=== PATIENT | female | born 1960 | race Caucasian/White ===

== ENCOUNTER 2017-04-08 09:03 | Emergency (ER) | payer MEDICAID ==
[2017-04-08 09:16] VITALS: BP 132/74
--- NOTE | 2017-04-08 09:56 | XRay Report ---
RIGHT KNEE RADIOGRAPHS INDICATION: Pain. COMPARISON: None similar at this institution. FINDINGS: AP, lateral and oblique right knee radiographs suggest moderate suprapatellar soft tissue swelling/possible effusion. Patellofemoral narrowing not excluded. Superior patellar pole and tibial spines degenerative spurring. Intact articulation. Approximately 1.2 cm sesamoid bone projects adjacent to the lateral femoral condyle on one of the views. CONCLUSION: Right knee degenerative changes with suprapatellar swelling suspected, as described. Thank you for the opportunity to participate in this patient's care.
[2017-04-08] MEDS ORDERED: TORADOL IM ONE (12:22)
--- NOTE | 2017-04-08 12:27 | Emergency Department Report ---
ED Lower Extremity HPI - General Chief Complaint: Extremity Injury, Lower Stated Complaint: RIGHT KNEE PAIN Time Seen by Provider: 04/08/17 12:09 Source: patient Mode of arrival: Ambulatory Limitations: No Limitations - History of Present Illness Initial Comments: this is a 56 y/o aaf with hx of DMII, HTN, Obesity, na Arthritis I woke up with knee pain front of knee, pt denies fall injury or trauma however this is a chronic conditions flaring 2-3 times per year, pain described as 5/10 aching exacerbated by prolonged standing walking and climbing steps pain is relieved by rest, pt remains ambulatory to baseline. MD Complaint: knee injury (acute on chronic knee pain ) Onset/Timin -: days(s) Injury: Knee: Right (aching ) Type of Injury: other (I woke up like this ) Place: home Severity: moderate Severity scale (0 -10): 5 Improves With: rest Worsens With: weight bearing, movement, palpation Context: other (none) Other Symptoms: loss of consciousness Associated Symptoms: swelling, ambulatory Treatments Prior to Arrival: other (none) - Related Data Previous Rx's Medication Instructions Recorded Last Taken Type Cyclobenzaprine [Flexeril] 10 mg PO TID PRN #30 tablet 04/08/17 Unknown Rx Naproxen [Naprosyn TAB] 500 mg PO BID PRN #60 tablet 04/08/17 Unknown Rx Allergies Allergy/AdvReac Type Severity Reaction Status Date / Time No Known Allergies Allergy Unverified 04/08/17 09:16 ED Review of Systems ROS: Stated complaint: RIGHT KNEE PAIN Other details as noted in HPI Constitutional: denies: chills, fever Eyes: denies: eye pain, eye discharge, vision change ENT: denies: ear pain, throat pain Respiratory: denies: cough, shortness of breath, wheezing Cardiovascular: denies: chest pain, palpitations Endocrine: no symptoms reported Gastrointestinal: denies: abdominal pain, nausea, diarrhea Genitourinary: denies: urgency, dysuria, discharge Musculoskeletal: joint swelling, arthralgia, myalgia. denies: back pain Skin: denies: rash, lesions Neurological: denies: headache, weakness, paresthesias Psychiatric: denies: anxiety, depression Hematological/Lymphatic: denies: easy bleeding, easy bruising ED Past Medical Hx - Past Medical History Previous Medical History?: Yes Hx Hypertension: Yes Hx Diabetes: Yes Hx Arthritis: Yes - Surgical History Past Surgical History?: Yes Additional Surgical History: HYSTERECTOMY - Social History Smoking Status: Never Smoker Substance Use Type: None - Medications Home Medications: Home Medications Medication Instructions Recorded Confirmed Last Taken Type Cyclobenzaprine [Flexeril] 10 mg PO TID PRN #30 tablet 04/08/17 Unknown Rx Naproxen [Naprosyn TAB] 500 mg PO BID PRN #60 tablet 04/08/17 Unknown Rx ED Physical Exam - General Limitations: No Limitations General appearance: alert, in no apparent distress - Head Head exam: Present: atraumatic, normocephalic - Eye Eye exam: Present: normal appearance - ENT ENT exam: Present: mucous membranes moist - Neck Neck exam: Present: normal inspection - Respiratory Respiratory exam: Present: normal lung sounds bilaterally. Absent: respiratory distress - Cardiovascular Cardiovascular Exam: Present: regular rate, normal rhythm. Absent: systolic murmur, diastolic murmur, rubs, gallop - GI/Abdominal GI/Abdominal exam: Present: soft, normal bowel sounds - Rectal Rectal exam: Present: deferred - Extremities Exam Extremities exam: Present: full ROM, tenderness (right anterior knee ), normal capillary refill, joint swelling (mild anterior knee swelling ). Absent: calf tenderness - Expanded Lower Extremity Exam Right Hip exam: Present: normal inspection, full ROM Upper Leg exam: Present: normal inspection, full ROM Knee exam: Present: tenderness, swelling, pain w/ pronation/supination (mild reproducible pain to rotation , mild prepatellar tenderness to deep palpation no palpable effusion full knee extension pt is ambulatory there is no weakness rom restricted by pain ), full knee extension. Absent: abrasion, laceration, ecchymosis, deformity, crepidus, dislocation, erythema, effusion, posterior draw sign, pain/laxity with valgus, pain/laxity with varus Lower Leg exam: Present: normal inspection, full ROM Ankle exam: Present: normal inspection, full ROM Foot/Toe exam: Present: normal inspection, full ROM Neuro vascular tendon exam: Present: no vascular compromise. Absent: pulse deficit, abnormal cap refill, motor deficit, sensory deficit, tendon deficit, extremity cold to touch, pallor, abnormal 2-point discrimination, decreased fine /light touch, foot drop, peroneal nerve deficit, significant pain with passive ROM of distal joint Gait: Positive: observed and limited by pain - Back Exam Back exam: Present: normal inspection, full ROM. Absent: tenderness, CVA tenderness (R), CVA tenderness (L), muscle spasm, paraspinal tenderness, vertebral tenderness, rash noted - Neurological Exam Neurological exam: Present: alert, oriented X3, CN II-XII intact, reflexes normal. Absent: motor sensory deficit - Expanded Neurological Exam Expanded Patient oriented to: Present: person, place, time Speech: Present: fluid speech Sensory exam: Upper Extremity Light Touch: Normal, Upper Extremity Pin Prick: Normal, Upper Extremity Temperature: Normal, UE 2 Point Discrimination: Normal, Lower Extremity Light Touch: Normal, Lower Extremity Pin Prick: Normal, Lower Extremity Temperature: Normal, LE 2 Point Discrimination: Normal Motor strength exam: RUE: 5, LUE: 5, RLE: 5, LLE: 5 DTR: bicep (R): 2+, bicep (L): 2+, tricep (R): 2+, tricep (L): 2+, knee (R): 2+ , knee (L): 2+, ankle (R): 2+, ankle (L): 2+ Best Eye Response ([place]): (4) open spontaneously Best Motor Response ([place]): (6) obeys commands Best Verbal Response ([place]): (5) oriented [place] Total: 15 - Psychiatric Psychiatric exam: Present: normal affect, normal mood - Skin Skin exam: Present: warm, dry, intact, normal color. Absent: rash ED Course Vital Signs 04/08/17 09:14 Temperature 97.8 F Pulse Rate 82 Respiratory 18 Rate Blood Pressure 132/74 O2 Sat by Pulse 100 Oximetry ED Lower Extremity MDM - Medical Decision Making this is a 56 y/o aaf with hx of DMII, HTN, Obesity, na Arthritis I woke up with knee pain front of knee, pt denies fall injury or trauma however this is a chronic conditions flaring 2-3 times per year, pain described as 5/10 aching exacerbated by prolonged standing walking and climbing steps pain is relieved by rest, pt remains ambulatory to baseline per patient, exam: right knee: no deformity no ecchymosis no erythema , no crepitus no stepoff ,mild reproducible pain to rotation , mild prepatellar tenderness to deep palpation no palpable effusion full knee extension pt is ambulatory there is no weakness rom restricted by pain. pain is improved with ketorlac im, knee xray: no fracture noted degenerative changes with suprapetellar swelling plan: nsaids , muscle relaxants, follow up with orthopedics Dr Mc upon appointment , david wrap right knee, naproxen, flexeril, pt verbalized agreement and understanding of discharge plan. Critical care attestation.: If time is entered above; I have spent that time in minutes in the direct care of this critically ill patient, excluding procedure time. ED Disposition Clinical Impression: Patellar tendinitis of right knee, Chronic pain of both knees Disposition: TO HOME OR SELFCARE Is pt being admited?: No Does the pt Need Aspirin: No Condition: Good Instructions: Arthralgia (ED), Knee Exercises (GEN) Prescriptions: Cyclobenzaprine [Flexeril] 10 mg PO TID PRN #30 tablet PRN Reason: Muscle Spasm Naproxen [Naprosyn TAB] 500 mg PO BID PRN #60 tablet PRN Reason: Pain Referrals: LANDY SHAW MD [Primary Care Provider] - 3-5 Days Forms: Work/School Release Form(ED) Time of Disposition: 12:42
[2017-04-08] MEDS ORDERED: TORADOL ONE (12:31)
== END 2017-04-08 12:54 | disposition home or self-care (01) ==
LOC: ED 09:03
DX: M76.51 Patellar tendinitis, right knee (principal); M25.561 Pain in right knee; M25.562 Pain in left knee; G89.29 Other chronic pain; I10 Essential (primary) hypertension; E11.9 Type 2 diabetes mellitus without complications
CPT/HCPCS: 73562; 96372; 99283; J1885

== ENCOUNTER 2021-11-12 08:42 | Inpatient (IN) | payer MEDICAID ==
[2021-11-12] MEDS ORDERED: ONDANSETRON 4 MG/2 ML INJ IV ONE (13:50)
[2021-11-12] MEDS ORDERED: ASPIRIN 81 MG TAB CHEW PO ONE (13:50)
[2021-11-12] MEDS ORDERED: NITROGLYCERIN 0.4 MG TAB SUBL SL ONE (13:50)
--- NOTE | 2021-11-12 13:57 | Emergency Department Report ---
ED General Adult HPI - General Chief complaint: Chest Pain Stated complaint: CHEST PAIN/NAUSEA Time Seen by Provider: 11/12/21 13:42 Source: patient Mode of arrival: Ambulatory Limitations: No Limitations - History of Present Illness Initial comments: Patient presents with complaints of chest pain x 2 days, left sided, pressure, non-radiating, 8/10, not worsened or relieved by anything, associated with SOB. Denies palpitations, diaphoresis, leg swelling, pain in her calves, recent travel, immobilization, surgery, hospitalization, sex HRT use. - Related Data Previous Rx's Medication Instructions Recorded Last Taken Type Cyclobenzaprine [Flexeril] 10 mg PO TID PRN #30 tablet 04/08/17 Unknown Rx Naproxen [Naprosyn TAB] 500 mg PO BID PRN #60 tablet 04/08/17 Unknown Rx Allergies Allergy/AdvReac Type Severity Reaction Status Date / Time tramadol Allergy Hives Verified 11/12/21 14:30 ED Review of Systems ROS: Stated complaint: CHEST PAIN/NAUSEA Other details as noted in HPI Comment: All other systems reviewed and negative Constitutional: denies: chills, fever Gastrointestinal: nausea, vomiting (non bloody, non bilious), diarrhea ED Past Medical Hx - Past Medical History Hx Hypertension: Yes Hx Diabetes: Yes Hx Arthritis: Yes - Surgical History Additional Surgical History: HYSTERECTOMY - Social History Smoking Status: Never Smoker Substance Use Type: None - Medications Home Medications: Home Medications Medication Instructions Recorded Confirmed Last Taken Type Cyclobenzaprine [Flexeril] 10 mg PO TID PRN #30 tablet 04/08/17 Unknown Rx Naproxen [Naprosyn TAB] 500 mg PO BID PRN #60 tablet 04/08/17 Unknown Rx ED Physical Exam - General Limitations: No Limitations General appearance: alert, in no apparent distress - Head Head exam: Present: atraumatic, normocephalic - Eye Eye exam: Present: PERRL, EOMI - ENT ENT exam: Present: mucous membranes moist, other (airway patent) - Neck Neck exam: Present: other (supple; no JVD) - Respiratory Respiratory exam: Present: other (good air entry, nml I:E, CTAB, no use of PRANAV) - Cardiovascular Cardiovascular Exam: Present: regular rate. Absent: rubs, gallop - GI/Abdominal GI/Abdominal exam: Present: soft, normal bowel sounds, other (tender to palpation in epigastric region, RUQ, LUQ) - Extremities Exam Extremities exam: Present: other (no lower extremity edema; non tender calves; neg Dov's sign bilaterally) - Back Exam Back exam: Present: full ROM, CVA tenderness (R), CVA tenderness (L) - Neurological Exam Neurological exam: Present: alert, oriented X3, CN II-XII intact. Absent: motor sensory deficit - Skin Skin exam: Present: warm, intact ED Course Vital Signs 11/12/21 11/12/21 11/12/21 08:48 13:53 14:00 Temperature 99.8 F H Pulse Rate 118 H 96 H 97 H Respiratory 19 38 H 37 H Rate Blood Pressure 140/68 135/65 O2 Sat by Pulse 95 96 95 Oximetry 11/12/21 11/12/21 11/12/21 14:16 14:19 14:25 Temperature Pulse Rate 95 H 96 H Respiratory 31 H Rate Blood Pressure 135/65 135/65 O2 Sat by Pulse 96 99 Oximetry 11/12/21 11/12/21 11/12/21 14:30 14:46 15:00 Temperature Pulse Rate 100 H 97 H 94 H Respiratory 29 H 21 21 Rate Blood Pressure 135/65 135/65 135/65 O2 Sat by Pulse 94 97 96 Oximetry 11/12/21 11/12/21 11/12/21 15:16 15:30 15:46 Temperature Pulse Rate 99 H 103 H 95 H Respiratory 18 22 29 H Rate Blood Pressure 135/65 135/65 148/52 O2 Sat by Pulse 94 100 95 Oximetry 11/12/21 11/12/21 11/12/21 16:00 16:16 16:30 Temperature Pulse Rate 97 H 99 H 99 H Respiratory 33 H 24 26 H Rate Blood Pressure 143/62 143/62 143/62 O2 Sat by Pulse 95 100 95 Oximetry 11/12/21 11/12/21 11/12/21 16:46 17:00 17:16 Temperature Pulse Rate 100 H 99 H 99 H Respiratory 17 13 24 Rate Blood Pressure 143/62 166/92 166/92 O2 Sat by Pulse 97 96 96 Oximetry 11/12/21 11/12/21 11/12/21 17:48 18:00 18:16 Temperature Pulse Rate 99 H 98 H 98 H Respiratory 22 20 29 H Rate Blood Pressure O2 Sat by Pulse 96 93 95 Oximetry 11/12/21 18:30 Temperature Pulse Rate Respiratory Rate Blood Pressure O2 Sat by Pulse 93 Oximetry ED Medical Decision Making - Lab Data Result diagrams: 11/12/21 14:36 11/12/21 17:21 Laboratory Tests 11/12/21 11/12/21 11/12/21 14:36 14:36 15:28 WBC 20.0 H RBC 4.71 Hgb 14.3 Hct 42.9 MCV 91 MCH 30 MCHC 33 RDW 14.1 Plt Count 156 Lymph % (Auto) 4.4 L [place] % (Auto) 5.5 Eos % (Auto) 0.0 Baso % (Auto) 0.4 Lymph # (Auto) 0.9 L [place] # (Auto) 1.1 H Eos # (Auto) 0.0 Baso # (Auto) 0.1 Seg Neutrophils % 89.7 H Seg Neutrophils # 17.9 H D-Dimer 1509.65 H Sodium Potassium Chloride Carbon Dioxide Anion Gap BUN Creatinine Estimated GFR BUN/Creatinine Ratio Glucose Lactic Acid Calcium Total Bilirubin AST ALT Alkaline Phosphatase Total Creatine Kinase Troponin T Total Protein Albumin Albumin/Globulin Ratio Triglycerides Cholesterol LDL Cholesterol Direct HDL Cholesterol Cholesterol/HDL Ratio Lipase Urine Color Urine Turbidity Urine pH Ur Specific [place] Urine Protein Urine Glucose (UA) Urine Ketones Urine Blood Urine Nitrite Urine Bilirubin Urine Urobilinogen Ur Leukocyte Esterase Urine WBC (Auto) Urine RBC (Auto) U Epithel Cells (Auto) Urine Bacteria (Auto) Ur Renal Epithelial Cell Urine Mucus Urine Opiates Screen Negative Urine Methadone Screen Negative Ur Barbiturates Screen Negative Ur Phencyclidine Scrn Negative Ur Amphetamines Screen Negative U Benzodiazepines Scrn Negative Urine Cocaine Screen Negative U Marijuana (THC) Screen Negative Drugs of Abuse Note Disclamer 11/12/21 11/12/21 11/12/21 15:32 16:52 17:21 WBC RBC Hgb Hct MCV MCH MCHC RDW Plt Count Lymph % (Auto) [place] % (Auto) Eos % (Auto) Baso % (Auto) Lymph # (Auto) [place] # (Auto) Eos # (Auto) Baso # (Auto) Seg Neutrophils % Seg Neutrophils # D-Dimer Sodium 131 L Potassium 4.7 Chloride 95.0 L Carbon Dioxide 20 L Anion Gap 21 BUN 23 H Creatinine 1.0 Estimated GFR 56 BUN/Creatinine Ratio 23 Glucose 242 H Lactic Acid 2.20 H* Calcium 8.7 Total Bilirubin 0.70 AST 24 ALT 17 Alkaline Phosphatase 99 Total Creatine Kinase 84 Troponin T 0.033 H Total Protein 6.6 Albumin 3.9 Albumin/Globulin Ratio 1.4 Triglycerides 256 H Cholesterol 142 LDL Cholesterol Direct 64 HDL Cholesterol 24 L Cholesterol/HDL Ratio 5.91 Lipase 16 Urine Color Red Urine Turbidity Cloudy Urine pH 6.0 Ur Specific [place] 1.016 Urine Protein >500 Urine Glucose (UA) Neg Urine Ketones Neg Urine Blood Lg Urine Nitrite Neg Urine Bilirubin Neg Urine Urobilinogen 4.0 Ur Leukocyte Esterase Lg Urine WBC (Auto) > 182.0 H Urine RBC (Auto) > 182.0 U Epithel Cells (Auto) 32.0 H Urine Bacteria (Auto) 4+ Ur Renal Epithelial Cell 1 Urine Mucus 3+ Urine Opiates Screen Urine Methadone Screen Ur Barbiturates Screen Ur Phencyclidine Scrn Ur Amphetamines Screen U Benzodiazepines Scrn Urine Cocaine Screen U Marijuana (THC) Screen Drugs of Abuse Note EKG: HR 108, SR, nml NM, narrow QRS, prolonged QTc to 531, TWI/F in I, aVL, mild J point depressions in V4 and V5 CXR: no acute cardiopulmonary process CTA chest: no clear cut PE; poor bolus timing; TAA 4.[address] abd/pelvis: signs of pyelonephritis; no ureterla stones; cholelithiasis without signs of cholecystitis - Medical Decision Making diff dz: - CP: need to r/o ACS. PE less likely. Pneumonia, pneumothorax ruled out. - abd tenderness: likely 2/2 pyelonephritis with sepsis. Calculous cholecysititis less likely. Received aspirin 324 mg PO x 1, nitroglycerin 0.4 mg SL x 1. CP resolved. Also received zosyn 4.5 g IV x 1, NS 1L bolus x 1, zofran 4 mg IV x 1. Critical care attestation.: If time is entered above; I have spent that time in minutes in the direct care of this critically ill patient, excluding procedure time. ED Disposition Clinical Impression: Chest pain, Pyelonephritis, Sepsis Disposition: ADMITTED INPATIENT Is pt being admited?: Yes Does the pt Need Aspirin: No Condition: Stable Time of Disposition: 21:30 (Patient admitted to Dr. Bain. Sign out was given by me to the admitting physician)
--- NOTE | 2021-11-12 14:38 | XRay Report ---
CHEST 1 VIEW INDICATION: Chest pain. COMPARISON: None FINDINGS: SUPPORT DEVICES: None. HEART: Within normal limits. LUNGS/PLEURA: No acute air space or interstitial disease. ADDITIONAL FINDINGS: None. IMPRESSION: 1. No acute findings. Signer Name: Stoney Neff MD Signed: 11/12/2021 2:33 PM Workstation Name: [id number]
[2021-11-12 15:00] LABS: Basophils # (Auto) 0.1 K/mm3 (0.0-0.1); Basophils % (Auto) 0.4 % (0.0-1.8); Hematocrit 42.9 % (30.3-42.9); Hemoglobin 14.3 gm/dl (10.1-14.3); Lymphocytes # (Auto) 0.9 K/mm3 (1.2-5.4); Lymphocytes % (Auto) 4.4 % (13.4-35.0); Mean Corpuscular HGB Conc 33 % (30-34); Mean Corpuscular Volume 91 fl (79-97); Monocytes # (Auto) 1.1 K/mm3 (0.0-0.8); Monocytes % (Auto) 5.5 % (0.0-7.3); Red Blood Count 4.71 M/mm3 (3.65-5.03); Red Cell Distribution Width 14.1 % (13.2-15.2)
[2021-11-12 15:03] LABS: Platelet Count 156 K/mm3 (140-440)
[2021-11-12 15:53] LABS: Amphetamine Screen,Urine Negative; Benzodiazepines Screen,Urine Negative; Cannabinoid Screen,Urine Negative; Cocaine Screen,Urine Negative; Methadone Screen,Urine Negative; Opiate Screen,Urine Negative
[2021-11-12 15:55] LABS: Bacteria,Urine 4+ /HPF (Negative); Bilirubin,Urine NEG (Negative); Blood,Urine LG (Negative); Color,Urine Red (Yellow); Mucus,Urine 3+ /HPF; Renal Epithelial Cells,Urine 1 /LPF
[2021-11-12 16:11] LABS: Protein,Urine >500 mg/dL (Negative); RBC,Urine > 182.0 /HPF (0.0-6.0); WBC,Urine > 182.0 /HPF (0.0-6.0)
[2021-11-12] MEDS ORDERED: SODIUM CHLORIDE 0.9% 1000 ML 1,000 ML IV ONE (16:43)
[2021-11-12] MEDS ORDERED: PIPERACIL/TAZOBACTA 4.5/NS 100 4.5 GM/100 ML VIAL IV ONE (16:43)
[2021-11-12 18:08] LABS: Albumin 3.9 g/dL (3.9-5); Calcium 8.7 mg/dL (8.4-10.2)
--- NOTE | 2021-11-12 18:09 | Electrocardiograph Report ---
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
[2021-11-12 18:19] LABS: Chol/HDL Ratio 5.91 %
--- NOTE | 2021-11-12 19:38 | Cat Scan Report ---
CTA CHEST WITH IV CONTRAST INDICATION: Chest pain; elevated D-dimer. TECHNIQUE: Axial CT images were obtained through the chest after injection of 100 mL Omnipaque 300 IV contrast. 3 plane MIP reconstructions were produced. All CT scans at this location are performed using CT dose reduction for ALARA by means of automated exposure control. COMPARISON: None available. FINDINGS: PULMONARY ARTERIES: Difficult to evaluate given contrast bolus timing and respiratory motion.. AORTA AND ARTERIES: The ascending thoracic aorta is dilated measuring 4.9 cm in greatest diameter.. MEDIASTINUM: No mass, lymphadenopathy or other significant abnormality. The heart is normal in size w ithout a pericardial effusion. The trachea and main bronchi are patent and normal in caliber. LUNGS: No suspicious consolidation, nodule or mass. No pneumothorax or pleural effusion. ADDITIONAL FINDINGS: None. UPPER ABDOMEN: Hepatosplenomegaly. Cholelithiasis. Abnormal inflammation of the left kidney only part ially visualized. BONES: No significant osseous abnormality. IMPRESSION: Aneurysm of the ascending thoracic aorta measuring 4.9 cm in diameter. See above comments. Signer Name: Gera Vines MD Signed: 11/12/2021 7:34 PM Workstation Name: [id number]
--- NOTE | 2021-11-12 19:42 | Cat Scan Report ---
CT ABDOMEN AND PELVIS WITH IV CONTRAST INDICATION: abdominal pain. COMPARISON: None available. TECHNIQUE: Axial CT images were obtained through the abdomen and pelvis after 100 mL Omnipaque [address] scans at this location are performed using CT dose reduction for ALARA by means of automated e xposure control. FINDINGS -- ABDOMEN: Lung Bases: No acute abnormality. Liver: Normal. Gallbladder: Cholelithiasis. Bile Ducts: Normal. Pancreas: Normal. Spleen: Normal. Adrenals: Normal. Right Kidney and Proximal Ureter: Normal. Left Kidney and Proximal Ureter: Grossly abnormal in appearance with slight enlargement and prominent left perinephric stranding. There may be slight abnormal enhancement involving the cortex of the upp er and lower pole there is some increased enhancement involving the urothelium of the proximal left u reter/left renal collecting system. Stomach and Bowel: Normal. Lymph Nodes: No significant adenopathy. Aorta: No significant abnormality. IVC: Normal. Additional Findings: Small fat-containing periumbilical hernia.. FINDINGS -- PELVIS: Urinary Bladder and Distal Ureters: Normal. Reproductive Organs: Fat-containing dermoid arising from the right adnexa region measuring 2.4 cm in diameter.. Appendix: Normal. Bowel: Extensive colonic diverticulosis.. Free Fluid: None. Lymph Nodes: No significant adenopathy. Additional Findings: None. Skeletal System: No acute abnormality. IMPRESSION: 1. Grossly abnormal appearance of the left kidney including the urothelium of the proximal left urete r. These findings are suspicious for underlying pyelonephritis. 2. Cholelithiasis, colonic diverticulosis and other incidental findings as noted above. Signer Name: Gera Vines MD Signed: 11/12/2021 7:38 PM Workstation Name: [id number]
[2021-11-12] MEDS ORDERED: MORPHINE 2 MG/1 ML INJ IV PRN (21:51)
[2021-11-12] MEDS ORDERED: ACETAMINOPHEN 325 MG TAB PO PRN ×2 (21:51)
[2021-11-12] MEDS ORDERED: MAGNESIUM HYDROXIDE (MOM) ORAL LIQD UDC PO PRN (21:51)
[2021-11-12] MEDS ORDERED: ONDANSETRON 4 MG/2 ML INJ IV PRN (21:51)
[2021-11-12] MEDS ORDERED: traMADol 50 MG TAB PO PRN (21:51)
[2021-11-12] MEDS ORDERED: DEXTROSE 50% IN WATER (25GM) 50 ML SYRINGE IV PRN (21:51)
[2021-11-12] MEDS ORDERED: NITROGLYCERIN 0.4 MG TAB SUBL SL PRN (21:51)
[2021-11-12] MEDS ORDERED: MORPHINE 4 MG/1 ML INJ IV PRN ×2 (21:51)
--- NOTE | 2021-11-12 22:06 | History and Physical Report ---
History of Present Illness Date of examination: 11/12/21 Date of admission: 11/12/2021 Chief complaint: Chest pain History of present illness: 61-year-old female with known history of hypertension, diabetes mellitus and arthritis presenting to the emergency room today with a 2-day history of chest pain. Chest pain is said to be left-sided and felt like pressure. Pain is nonradiating. She has had some mild shortness of breath. No known relieving or exacerbating factor. Patient denies any headache or dizziness and denies any diaphoresis. Denies any fever or chills, denies any nausea vomiting no abdominal pain. Work-up in the emergency room today, labs are significant for leukocytosis of 20. D-dimer of 1509, hyponatremia 131, lactic acid of 3.2, troponin level of 0.033, urinalysis is significant for UTI. Chest x-ray shows no acute findings. CT angiogram of the chest shows aneurysm of the ascending thoracic aorta measuring 4.[address] of the abdomen and pelvis suspicious for underlying pyelonephritis, cholelithiasis and colonic diverticulosis. Past History Past Medical History: diabetes, hypertension Past Surgical History: hysterectomy Social history: no significant social history Family history: no significant family history Medications and Allergies Allergies Allergy/AdvReac Type Severity Reaction Status Date / Time tramadol Allergy Hives Verified 11/12/21 14:30 Home Medications Medication Instructions Recorded Confirmed Last Taken Type Cyclobenzaprine [Flexeril] 10 mg PO TID PRN #30 tablet 04/08/17 Unknown Rx Naproxen [Naprosyn TAB] 500 mg PO BID PRN #60 tablet 04/08/17 Unknown Rx Review of Systems Constitutional: no fever, no chills Ears, nose, mouth and throat: no nasal congestion, no sore throat Cardiovascular: chest pain, no orthopnea, no palpitations Respiratory: no cough, no shortness of breath Gastrointestinal: abdominal pain, nausea, vomiting, diarrhea Genitourinary Female: no pelvic pain, no flank pain, no menorrhagia, no dysuria, no hematuria Musculoskeletal: no neck pain, no low back pain Integumentary: no rash, no pruritis Neurological: no headaches, no confusion Psychiatric: no anxiety, no depression Endocrine: no polyphagia, no polydipsia, no polyuria, no nocturia Exam - Constitutional Vitals: Temp Pulse Resp BP Pulse Ox 99.8 F H 98 H 29 H 166/92 93 11/12/21 08:48 11/12/21 18:16 11/12/21 18:16 11/12/21 17:16 11/12/21 18:30 General appearance: Present: no acute distress, well-nourished, obese - EENT Eyes: Present: PERRL, EOM intact. Absent: scleral icterus ENT: hearing intact, clear oral mucosa, dentition normal - Neck Neck: Present: supple, normal ROM - Respiratory Respiratory effort: normal Respiratory: bilateral: CTA - Cardiovascular Rhythm: regular Heart Sounds: Present: S1 & S2. Absent: gallop, systolic murmur, diastolic murmur, rub, click - Extremities Extremities: no ischemia, pulses intact, pulses symmetrical, No edema, normal temperature, normal color, Full ROM Peripheral Pulses: within normal limits - Abdominal General gastrointestinal: Present: soft, tender (Mild epigastric tenderness, no rebound tenderness and no guarding.), non-distended, normal bowel sounds. Absent: mass - Integumentary Integumentary: Present: clear, warm, dry, normal turgor. Absent: rash - Musculoskeletal Musculoskeletal: strength equal bilaterally - Psychiatric Psychiatric: appropriate mood/affect, intact judgment & insight, memory intact, cooperative - Neurologic Neurologic: CNII-XII intact, no focal deficits ([id number] offlineDiscussed), moves all extremities HEART Score - HEART Score Troponin: Troponin T 0.033 ng/mL (0.00-0.029) H 11/12/21 17:21 Results - Labs CBC & Chem 7: 11/13/21 04:28 11/13/21 04:28 Labs: Abnormal lab results 11/12/21 11/12/21 11/12/21 Range/Units 14:36 14:36 15:32 WBC 20.0 H (4.5-11.0) K/mm3 Lymph % (Auto) 4.4 L (13.4-35.0) % Lymph # (Auto) 0.9 L (1.2-5.4) K/mm3 [place] # (Auto) 1.1 H (0.0-0.8) K/mm3 Seg Neutrophils % 89.7 H (40.0-70.0) % Seg Neutrophils # 17.9 H (1.8-7.7) K/mm3 D-Dimer 1509.65 H (0-234) ng/mlDDU Sodium (137-145) mmol/L Chloride (98-107) mmol/L Carbon Dioxide (22-30) mmol/L BUN (7-17) mg/dL Glucose (65-100) mg/dL Lactic Acid (0.7-2.0) mmol/L Troponin T (0.00-0.029) ng/mL Triglycerides (2-149) mg/dL HDL Cholesterol (40-59) mg/dL Urine WBC (Auto) > 182.0 H (0.0-6.0) /HPF U Epithel Cells (Auto) 32.0 H (0-13.0) /HPF 11/12/21 11/12/21 Range/Units 16:52 17:21 WBC (4.5-11.0) K/mm3 Lymph % (Auto) (13.4-35.0) % Lymph # (Auto) (1.2-5.4) K/mm3 [place] # (Auto) (0.0-0.8) K/mm3 Seg Neutrophils % (40.0-70.0) % Seg Neutrophils # (1.8-7.7) K/mm3 D-Dimer (0-234) ng/mlDDU Sodium 131 L (137-145) mmol/L Chloride 95.0 L (98-107) mmol/L Carbon Dioxide 20 L (22-30) mmol/L BUN 23 H (7-17) mg/dL Glucose 242 H (65-100) mg/dL Lactic Acid 2.20 H* (0.7-2.0) mmol/L Troponin T 0.033 H (0.00-0.029) ng/mL Triglycerides 256 H (2-149) mg/dL HDL Cholesterol 24 L (40-59) mg/dL Urine WBC (Auto) (0.0-6.0) /HPF U Epithel Cells (Auto) (0-13.0) /HPF Assessment and Plan - Patient Problems (1) Chest pain Current Visit: Yes Status: Acute Plan to address problem: Patient admitted and placed on telemetry. Check serial cardiac enzymes. Patient commenced on daily aspirin, sublingual nitroglycerin and IV morphine as needed for chest pain. Consult cardiology for evaluation and further recommendations. (2) Pyelonephritis Current Visit: Yes Status: Acute Plan to address problem: Patient placed on empiric IV antibiotics. (3) Sepsis Current Visit: Yes Status: Acute Plan to address problem: Possibly secondary to the pyelonephritis. Continue on IV fluid. IV antibiotics. (4) Diabetes mellitus Current Visit: Yes Status: Acute Plan to address problem: Patient placed on sliding scale insulin. Will monitor Accu-Cheks closely. (5) Hypertension Current Visit: Yes Status: Acute Plan to address problem: We will resume routine home medications and monitor vital signs closely. (6) DVT prophylaxis Current Visit: Yes Status: Acute Plan to address problem: Patient placed on subcutaneous heparin. (7) Full code status Current Visit: Yes Status: Acute Plan to address problem: Patient is full code.
[2021-11-12] MEDS ORDERED: cefTRIAXone/NS 1 GM/50 ML 1 GM/50 ML BAG IV SCH (23:00)
[2021-11-13] MEDS: SODIUM CHLORIDE 0.9% 1000 ML 1,000 ML IV SCH (02:16)
[2021-11-13] MEDS: HEPARIN 5,000 UNIT/1 ML VIAL SUB-Q SCH ×3 (05:40→22:03)
[2021-11-13 05:42] LABS: Mean Corpuscular HGB Conc 33 % (30-34); Mean Corpuscular Volume 90 fl (79-97); Platelet Count 131 K/mm3 (140-440); Red Blood Count 4.32 M/mm3 (3.65-5.03); Red Cell Distribution Width 14.3 % (13.2-15.2)
[2021-11-13 06:36] LABS: Band Neutrophils # (Manual) 1.7 K/mm3; Basophils % (Manual) 0 % (0.0-1.8); Eosinophils % (Manual) 0 % (0.0-4.3); Platelet Estimate Consistent w Auto; RBC Morphology Normal; Total Cells Counted 100
[2021-11-13] MEDS ORDERED: REGADENOSON 0.4 MG/5 ML INJ IV ONE (08:28)
[2021-11-13] MEDS: INSULIN LISPRO 100 UNIT/ML SUB-Q SCH ×5 (11:29→22:04)
[2021-11-13] MEDS: ASPIRIN EC 325 MG TAB PO SCH (11:30)
--- NOTE | 2021-11-13 12:29 | Nuclear Medicine Report ---
APPROVED REPORT Exam: Nuclear Stress Test Indication: Chest pain BMI: 0 Stress Test Details HR Max Heart Rate (APMHR): 157 bpm Target HR (85% APMHR): 133 bpm BP ECG Resting ECG: Sinus Rhythm,wnl. Stress ECG: Sinus Rhythm ST Change: None Arrhythmia: None Recovery ECG: Sinus Rhythm Recovery ST Change: None Stress ECG Conclusion No EKG or arrhythmia with vasodilation. NM EXAM: Myocardial Perfusion REST/STRESS Imaging Protocol: Rest Tc-99m/Stress Tc-99m 1 day Resting Data Rest SPECT myocardial perfusion imaging was performed in supine position 45 minutes following the intravenous injection of 10 mCi of Tc-99m Myoview. Time of rest injection: 729 Date: 11/13/2021 Pharmacologic Stress Pharmacologic stress test was performed by injecting Regadenoson 0.4 mg IV push followed by the intravenous injection of 28 mCi of Tc-99m Myoview. Time of stress injection: 929 Date: 11/13/2021 Gated Stress SPECT was performed 30 minutes after stress injection. The images were gated to evaluate regional wall motion and calculate left ventricular ejection fraction. Study Data TID = 1.03. Perfusion Wall Motion Normal wall motion and thickening noted.Post vasodilation LVEF of 52% noted. Nuclear Conclusion ECG Findings: negative for ischemia Clinical Findings: negative for ischemia Nuclear Findings: negative for ischemia Exercise Capacity: not assessed Left Ventricular Function: normal Risk Study: low Normal study. No scintigraphic evidence for myocardial ischemia or scar. Conclusion No EKG or arrhythmia with vasodilation.
--- NOTE | 2021-11-13 12:50 | Consultation ---
History of Present Illness - Reason for Consult Consult date: 11/13/21 Chest pain, a sending aortic aneurysm - History of Present Illness Patient with a history of chest pain resulting in presentation to the hospital. Currently undergoing cardiac evaluation. On imaging including CTA of the chest as well as a CT of the abdomen and pelvis, the patient was noted to have dilation of the ascending aorta to 4.7 cm in diameter. No abdominal aortic aneurysm. Patient asymptomatic at time of examination Past History Past Medical History: diabetes, hypertension Past Surgical History: hysterectomy Social history: no significant social history Family history: no significant family history Medications and Allergies Allergies Allergy/AdvReac Type Severity Reaction Status Date / Time tramadol Allergy Hives Verified 11/12/21 14:30 Home Medications Medication Instructions Recorded Confirmed Last Taken Type Cyclobenzaprine [Flexeril] 10 mg PO TID PRN #30 tablet 04/08/17 Unknown Rx Active Meds: Active Medications Acetaminophen (Acetaminophen 325 Mg Tab) 650 mg PO Q4H PRN PRN Reason: Pain MILD(1-3)/Fever >100.5/MILLER Last Admin: 11/12/21 22:58 Dose: 650 mg Aspirin (Aspirin Ec 325 Mg Tab) 325 mg PO QDAY ZOHAIB Last Admin: 11/13/21 11:30 Dose: 325 mg Dextrose (Dextrose 50% In Water (25gm) 50 Ml Syringe) 50 ml IV Q30MIN PRN; Protocol PRN Reason: Hypoglycemia Heparin Sodium (Porcine) (Heparin 5,000 Unit/1 Ml Vial) 5,000 unit SUB-Q Q8HR ZOHAIB Last Admin: 11/13/21 05:40 Dose: 5,000 unit Sodium Chloride (Nacl 0.9% 1000 Ml) 1,000 mls @ 125 mls/hr IV DIRECT ZOHAIB Last Admin: 11/13/21 02:16 Dose: 125 mls/hr Ceftriaxone Sodium (Rocephin/Ns 1 Gm/50 Ml) 1 gm in 50 mls @ 100 mls/hr IV Q24H ZOHAIB; Protocol Last Admin: 11/13/21 02:15 Dose: 100 mls/hr Insulin Human Lispro (Insulin Lispro 100 Unit/Ml) 0 unit SUB-Q ACHS ZOHAIB; Protocol Last Admin: 11/13/21 11:30 Dose: Not Given Magnesium Hydroxide (Magnesium Hydroxide (Mom) Oral Liqd Udc) 30 ml PO Q4H PRN PRN Reason: Constipation Morphine Sulfate (Morphine 2 Mg/1 Ml Inj) 2 mg IV Q4H PRN PRN Reason: Pain, Moderate (4-6) Morphine Sulfate (Morphine 4 Mg/1 Ml Inj) 4 mg IV Q4H PRN PRN Reason: Pain , Severe (7-10) Morphine Sulfate (Morphine 4 Mg/1 Ml Inj) 2 mg IV Q5MIN PRN PRN Reason: Chest Pain unrelieved by NTG Nitroglycerin (Nitroglycerin 0.4 Mg Tab Subl) 0.4 mg SL Q5M PRN PRN Reason: Chest Pain Ondansetron HCl (Ondansetron 4 Mg/2 Ml Inj) 4 mg IV Q8H PRN PRN Reason: Nausea And Vomiting Last Admin: 11/13/21 10:10 Dose: 4 mg Sodium Chloride (Sodium Chloride 0.9% 10 Ml Flush Syringe) 10 ml IV BID ZOHAIB Last Admin: 11/13/21 11:31 Dose: 10 ml Sodium Chloride (Sodium Chloride 0.9% 10 Ml Flush Syringe) 10 ml IV PRN PRN PRN Reason: LINE FLUSH Review of Systems All systems: negative Exam - Constitutional Vitals: Temp Pulse Resp BP Pulse Ox 98.9 F 86 18 122/79 92 11/13/21 03:52 11/13/21 03:52 11/13/21 03:52 11/13/21 10:41 11/13/21 10:41 General appearance: Present: no acute distress - EENT Eyes: Present: EOM intact ENT: hearing intact - Neck Neck: Present: supple, normal ROM - Respiratory Respiratory effort: normal - Abdominal General gastrointestinal: Present: deferred Female genitourinary: Present: deferred - Rectal Rectal Exam: deferred - Psychiatric Psychiatric: appropriate mood/affect, cooperative Results - Labs CBC & Chem 7: 11/13/21 04:28 11/13/21 04:28 Labs: Abnormal lab results 11/12/21 11/12/21 11/12/21 Range/Units 14:36 14:36 15:32 WBC 20.0 H (4.5-11.0) K/mm3 Plt Count (140-440) K/mm3 Lymph % (Auto) 4.4 L (13.4-35.0) % Lymph # (Auto) 0.9 L (1.2-5.4) K/mm3 [place] # (Auto) 1.1 H (0.0-0.8) K/mm3 Seg Neutrophils % 89.7 H (40.0-70.0) % Seg Neuts % (Manual) (40.0-70.0) % Lymphocytes % (Manual) (13.4-35.0) % Seg Neutrophils # 17.9 H (1.8-7.7) K/mm3 Seg Neutrophils # Man (1.8-7.7) K/mm3 Lymphocytes # (Manual) (1.2-5.4) K/mm3 D-Dimer 1509.65 H (0-234) ng/mlDDU Sodium (137-145) mmol/L Chloride (98-107) mmol/L Carbon Dioxide (22-30) mmol/L BUN (7-17) mg/dL Glucose (65-100) mg/dL Lactic Acid (0.7-2.0) mmol/L Calcium (8.4-10.2) mg/dL Troponin T (0.00-0.029) ng/mL Triglycerides (2-149) mg/dL HDL Cholesterol (40-59) mg/dL Urine WBC (Auto) > 182.0 H (0.0-6.0) /HPF U Epithel Cells (Auto) 32.0 H (0-13.0) /HPF 11/12/21 11/12/21 11/13/21 Range/Units 16:52 17:21 04:28 WBC 16.6 H (4.5-11.0) K/mm3 Plt Count 131 L (140-440) K/mm3 Lymph % (Auto) (13.4-35.0) % Lymph # (Auto) (1.2-5.4) K/mm3 [place] # (Auto) (0.0-0.8) K/mm3 Seg Neutrophils % (40.0-70.0) % Seg Neuts % (Manual) 79.0 H (40.0-70.0) % Lymphocytes % (Manual) 6.0 L (13.4-35.0) % Seg Neutrophils # (1.8-7.7) K/mm3 Seg Neutrophils # Man 13.1 H (1.8-7.7) K/mm3 Lymphocytes # (Manual) 1.0 L (1.2-5.4) K/mm3 D-Dimer (0-234) ng/mlDDU Sodium 131 L (137-145) mmol/L Chloride 95.0 L (98-107) mmol/L Carbon Dioxide 20 L (22-30) mmol/L BUN 23 H (7-17) mg/dL Glucose 242 H (65-100) mg/dL Lactic Acid 2.20 H* (0.7-2.0) mmol/L Calcium (8.4-10.2) mg/dL Troponin T 0.033 H (0.00-0.029) ng/mL Triglycerides 256 H (2-149) mg/dL HDL Cholesterol 24 L (40-59) mg/dL Urine WBC (Auto) (0.0-6.0) /HPF U Epithel Cells (Auto) (0-13.0) /HPF 11/13/21 11/13/21 Range/Units 04:28 04:28 WBC (4.5-11.0) K/mm3 Plt Count (140-440) K/mm3 Lymph % (Auto) (13.4-35.0) % Lymph # (Auto) (1.2-5.4) K/mm3 [place] # (Auto) (0.0-0.8) K/mm3 Seg Neutrophils % (40.0-70.0) % Seg Neuts % (Manual) (40.0-70.0) % Lymphocytes % (Manual) (13.4-35.0) % Seg Neutrophils # (1.8-7.7) K/mm3 Seg Neutrophils # Man (1.8-7.7) K/mm3 Lymphocytes # (Manual) (1.2-5.4) K/mm3 D-Dimer (0-234) ng/mlDDU Sodium 135 L (137-145) mmol/L Chloride 96.8 L (98-107) mmol/L Carbon Dioxide (22-30) mmol/L BUN 23 H (7-17) mg/dL Glucose 274 H (65-100) mg/dL Lactic Acid (0.7-2.0) mmol/L Calcium 8.0 L (8.4-10.2) mg/dL Troponin T 0.036 H (0.00-0.029) ng/mL Triglycerides (2-149) mg/dL HDL Cholesterol (40-59) mg/dL Urine WBC (Auto) (0.0-6.0) /HPF U Epithel Cells (Auto) (0-13.0) /HPF - Imaging and Cardiology CT scan - abdomen: image reviewed CT scan - chest: image reviewed CT scan - pelvis: image reviewed Assessment and Plan Patient with dilation of her ascending aorta. At present, this is below the threshold for repair. Counseled patient on the need to maintain adequate blood pressure. Patient can be discharged from a vascular standpoint and follow-up in our office in 2 weeks. Patient will need outpatient surveillance at routine intervals.
--- NOTE | 2021-11-13 14:50 | Consultation ---
History of Present Illness Consult date: 11/13/21 Requesting physician: JANEE DAVALOS Consult reason: chest pain History of present illness: Patient is a 60-year-old female with a past medical history of hypertension, hyperlipidemia, and diabetes who presents to the ED with multiple complaints including body soreness, nausea, vomiting, epigastric pain, and some chest pain that have been going on for about 2 to 3 days. Patient states that her chest pain felt like sharp pain and located along her left side and in her epigastric region. She reported the pain was worse with deep breathing and palpation. Patient denies shortness of breath, lightheadedness, or diaphoresis. Of note in the ED patient was found to have leukocytosis, lactic acidosis, minimally elevated troponins, urinalysis significant for UTI, CT shows ascending aortic aneurysm and suspicious for pyelonephritis, cholelithiasis and colonic diverticulosis. Patient is previously unknown to our practice. Cardiology is consulted for chest pain Past History Past Medical History: diabetes, hypertension Past Surgical History: hysterectomy Social history: no significant social history Family history: no significant family history Medications and Allergies Allergies Allergy/AdvReac Type Severity Reaction Status Date / Time tramadol Allergy Hives Verified 11/12/21 14:30 Home Medications Medication Instructions Recorded Confirmed Last Taken Type Cyclobenzaprine [Flexeril] 10 mg PO TID PRN #30 tablet 04/08/17 11/09/21 Rx AtorvaSTATin [Lipitor] 40 mg PO QPM 11/13/21 11/13/21 11/09/21 History Claritin 10 mg PO PRN PRN 11/13/21 11/13/21 11/09/21 History Insulin Glargine [Lantus VIAL] 30 units SQ QAM 11/13/21 11/13/21 11/09/21 History Insulin Glargine [Lantus VIAL] 35 units SQ QPM 11/13/21 11/13/21 11/09/21 History Isosorbide Mononitrate [Isosorbide 60 mg PO DAILY 11/13/21 11/13/21 11/09/21 History Mononitrate ER] Meloxicam [Mobic] 15 mg PO Q3D 11/13/21 11/13/21 11/09/21 History Nitroglycerin [Nitrostat] 0.4 mg PO PRN 11/13/21 11/13/2111/12/22 History Oxycodone-Acetaminophen 10-325 10 - 325 mg PO PRN PRN 11/13/21 11/13/21 11/09/21 History Pregabalin [Lyrica] 100 mg PO BID 11/13/21 11/13/21 11/09/21 History lisinopriL [Lisinopril] 25 mg PO DAILY 11/13/21 11/13/21 11/09/21 History Active Meds: Active Medications Acetaminophen (Acetaminophen 325 Mg Tab) 650 mg PO Q4H PRN PRN Reason: Pain MILD(1-3)/Fever >100.5/MILLER Last Admin: 11/12/21 22:58 Dose: 650 mg Aspirin (Aspirin Ec 325 Mg Tab) 325 mg PO QDAY ZOHAIB Last Admin: 11/13/21 11:30 Dose: 325 mg Dextrose (Dextrose 50% In Water (25gm) 50 Ml Syringe) 50 ml IV Q30MIN PRN; Protocol PRN Reason: Hypoglycemia Heparin Sodium (Porcine) (Heparin 5,000 Unit/1 Ml Vial) 5,000 unit SUB-Q Q8HR ZOHAIB Last Admin: 11/13/21 05:40 Dose: 5,000 unit Sodium Chloride (Nacl 0.9% 1000 Ml) 1,000 mls @ 125 mls/hr IV DIRECT ZOHAIB Last Admin: 11/13/21 02:16 Dose: 125 mls/hr Ceftriaxone Sodium (Rocephin/Ns 1 Gm/50 Ml) 1 gm in 50 mls @ 100 mls/hr IV Q24H ZOHAIB; Protocol Last Admin: 11/13/21 02:15 Dose: 100 mls/hr Insulin Human Lispro (Insulin Lispro 100 Unit/Ml) 0 unit SUB-Q ACHS ZOHAIB; Protocol Last Admin: 11/13/21 12:54 Dose: 4 unit Magnesium Hydroxide (Magnesium Hydroxide (Mom) Oral Liqd Udc) 30 ml PO Q4H PRN PRN Reason: Constipation Morphine Sulfate (Morphine 2 Mg/1 Ml Inj) 2 mg IV Q4H PRN PRN Reason: Pain, Moderate (4-6) Morphine Sulfate (Morphine 4 Mg/1 Ml Inj) 4 mg IV Q4H PRN PRN Reason: Pain , Severe (7-10) Morphine Sulfate (Morphine 4 Mg/1 Ml Inj) 2 mg IV Q5MIN PRN PRN Reason: Chest Pain unrelieved by NTG Nitroglycerin (Nitroglycerin 0.4 Mg Tab Subl) 0.4 mg SL Q5M PRN PRN Reason: Chest Pain Ondansetron HCl (Ondansetron 4 Mg/2 Ml Inj) 4 mg IV Q8H PRN PRN Reason: Nausea And Vomiting Last Admin: 11/13/21 10:10 Dose: 4 mg Sodium Chloride (Sodium Chloride 0.9% 10 Ml Flush Syringe) 10 ml IV BID ZOHAIB Last Admin: 11/13/21 11:31 Dose: 10 ml Sodium Chloride (Sodium Chloride 0.9% 10 Ml Flush Syringe) 10 ml IV PRN PRN PRN Reason: LINE FLUSH Review of Systems Constitutional: no weight loss, no weight gain, no fever, no chills Ears, nose, mouth and throat: no sinus pressure, no sinus pain Cardiovascular: chest pain, no lightheadedness, no shortness of breath, no dyspnea on exertion Respiratory: no cough, no shortness of breath, no dyspnea on exertion Gastrointestinal: abdominal pain, nausea, vomiting Musculoskeletal: no neck stiffness, no neck pain Integumentary: no rash, no pruritis, no redness Neurological: no head injury, no transient paralysis, no paralysis Psychiatric: no anxiety, no memory loss Endocrine: no cold intolerance, no heat intolerance Hematologic/Lymphatic: no easy bruising, no easy bleeding Physical Examination Vital Signs Temp Pulse Resp BP Pulse Ox 99.8 F H 118 H 19 140/68 95 11/12/21 08:48 11/12/21 08:48 11/12/21 08:48 11/12/21 08:48 11/12/21 08:48 General appearance: no acute distress HEENT: Positive: PERRL Neck: Positive: trachea midline Cardiac: Positive: Reg Rate and Rhythm Lungs: Positive: Normal Breath Sounds Neuro: Positive: Grossly Intact Abdomen: Positive: Active Bowel Sounds Skin: Negative: Rash, Suspicious Lesions, Ulceration Extremities: Present: upper extr. pulses. Absent: edema Results 11/13/21 04:28 11/13/21 04:28 Cardiac Enzymes 11/12/21 Range/Units 17:21 AST 24 (5-40) units/L Lipids 11/12/21 Range/Units 17:21 Triglycerides 256 H (2-149) mg/dL Cholesterol 142 (50-199) mg/dL HDL Cholesterol 24 L (40-59) mg/dL Cholesterol/HDL Ratio 5.91 % CBC 11/12/21 11/13/21 Range/Units 14:36 04:28 WBC 20.0 H 16.6 H (4.5-11.0) K/mm3 RBC 4.71 4.32 (3.65-5.03) M/mm3 Hgb 14.3 13.0 (10.1-14.3) gm/dl Hct 42.9 39.0 (30.3-42.9) % Plt Count 156 131 L (140-440) K/mm3 Lymph # (Auto) 0.9 L (1.2-5.4) K/mm3 [place] # (Auto) 1.1 H (0.0-0.8) K/mm3 Eos # (Auto) 0.0 (0.0-0.4) K/mm3 Baso # (Auto) 0.1 (0.0-0.1) K/mm3 Comprehensive Metabolic Panel 11/12/21 11/13/21 Range/Units 17:21 04:28 Sodium 131 L 135 L (137-145) mmol/L Potassium 4.7 3.7 D (3.6-5.0) mmol/L Chloride 95.0 L 96.8 L (98-107) mmol/L Carbon Dioxide 20 L 24 (22-30) mmol/L BUN 23 H 23 H (7-17) mg/dL Creatinine 1.0 1.2 (0.6-1.2) mg/dL Glucose 242 H 274 H (65-100) mg/dL Calcium 8.7 8.0 L (8.4-10.2) mg/dL AST 24 (5-40) units/L ALT 17 (7-56) units/L Alkaline Phosphatase 99 (35-129) units/L Total Protein 6.6 (6.3-8.2) g/dL Albumin 3.9 (3.9-5) g/dL - Imaging and Cardiology Echo: pending EKG interpretations - Telemetry EKG Rhythm: Sinus Rhythm - EKG Sinus rhythms and dysrhythmias: sinus rhythm Assessment and Plan Patient is a 60-year-old female with a past medical history of hypertension, hyperlipidemia, and diabetes who presents to the ED with multiple complaints including body soreness, nausea, vomiting, epigastric pain, and some chest pain that have been going on for about 2 to 3 days. Sepsis UTI Pyelonephritis? cholelithiasis? Aortic aneurysm-vascular following Troponin leakage Diabetes Lexiscan MPI stress test 11/13/2021-no scintigraphic evidence of myocardial ischemia or scar. Normal study Plan: EKG shows sinus rhythm 86 with no acute ischemic changes. Troponin is minimally elevated. Patient currently chest pain-free patient previously had atypical chest pain. Patient had a normal stress test without signs of ischemia atypical chest pain likely associated with other conditions Echo pending Cardiac status otherwise stable. Will see as needed Patient seen in conjunction with Dr. Minor who agrees with this plan of care - Patient Problems (1) Chest pain Current Visit: Yes Status: Acute (2) Pyelonephritis Current Visit: Yes Status: Acute (3) Sepsis Current Visit: Yes Status: Acute (4) Diabetes mellitus Current Visit: Yes Status: Acute (5) Hypertension Current Visit: Yes Status: Acute
[2021-11-13] MEDS ORDERED: CYCLOBENZAPRINE 10 MG TAB PO PRN (15:57)
[2021-11-13] MEDS ORDERED: CLARITIN 10 MG PO PRN (15:57)
[2021-11-13] MEDS ORDERED: NITROGLYCERIN 0.4 MG TAB SUBL SL SCH (16:00)
--- NOTE | 2021-11-13 16:11 | Progress Note ---
Assessment and Plan -- Chest pain Current Visit: Yes Status: Acute Plan to address problem: Patient admitted and placed on telemetry. Check serial cardiac enzymes. Patient commenced on daily aspirin, sublingual nitroglycerin and IV morphine as needed for chest pain. Consult cardiology for evaluation and further recommendations. s/p stress test today -- Pyelonephritis with sepsis and bacteremia Current Visit: Yes Status: Acute Plan to address problem: Patient placed on empiric IV antibiotics. order repeat blood cx, consult ID -- Sepsis Current Visit: Yes Status: Acute Plan to address problem: Possibly secondary to the pyelonephritis. Continue on IV fluid. IV antibiotics. -- Diabetes mellitus with metabolic syndrom Current Visit: Yes Status: Acute Plan to address problem: Patient placed on sliding scale insulin. Will monitor Accu-Cheks closely. -- Hypertension Current Visit: Yes Status: Acute Plan to address problem: We will resume routine home medications and monitor vital signs closely. -- DVT prophylaxis Current Visit: Yes Status: Acute Plan to address problem: Patient placed on subcutaneous heparin. -- Full code status Current Visit: Yes Status: Acute Plan to address problem: Patient is full code. Subjective Date of service: 11/13/21 Interval history: patient seen and examined, daughter at the bedside c/o back pain s/p stress test today Objective - Constitutional Vitals: Vital Signs - 12hr 11/13/21 11/13/21 11/13/21 06:10 06:21 06:31 Blood Pressure 126/77 126/77 O2 Sat by Pulse 97 97 99 Oximetry 11/13/21 11/13/21 11/13/21 06:41 06:51 07:01 Blood Pressure 126/77 126/77 126/77 O2 Sat by Pulse 99 96 86 Oximetry 11/13/21 11/13/21 11/13/21 07:11 07:21 07:31 Blood Pressure 126/77 126/77 126/77 O2 Sat by Pulse 90 94 95 Oximetry 11/13/21 11/13/21 11/13/21 07:41 07:51 08:01 Blood Pressure 116/60 116/60 105/64 O2 Sat by Pulse 96 96 96 Oximetry 11/13/21 11/13/21 11/13/21 08:11 08:21 08:31 Blood Pressure 105/64 105/64 100/63 O2 Sat by Pulse 96 96 96 Oximetry 11/13/21 11/13/21 11/13/21 08:41 08:49 09:47 Blood Pressure 100/63 119/63 129/84 O2 Sat by Pulse 95 93 Oximetry 11/13/21 11/13/21 11/13/21 09:49 09:50 09:52 Blood Pressure 126/50 124/56 122/63 O2 Sat by Pulse Oximetry 11/13/21 11/13/21 11/13/21 09:53 09:54 10:01 Blood Pressure 106/76 130/66 129/86 O2 Sat by Pulse 94 Oximetry 11/13/21 11/13/21 11/13/21 10:11 10:20 10:31 Blood Pressure 129/86 129/86 122/79 O2 Sat by Pulse 96 95 92 Oximetry 11/13/21 10:41 Blood Pressure 122/79 O2 Sat by Pulse 92 Oximetry General appearance: Present: no acute distress, obese - EENT Eyes: PERRL, EOM intact ENT: hearing intact, clear oral mucosa Ears: bilateral: normal - Neck Neck: supple, normal ROM - Respiratory Respiratory effort: normal Respiratory: bilateral: CTA - Cardiovascular Rhythm: regular Heart Sounds: Present: S1 & S2. Absent: gallop, rub Extremities: pulses intact, No edema, normal color, Full ROM - Gastrointestinal General gastrointestinal: Present: soft, non-tender, non-distended, normal bowel sounds - Integumentary Integumentary: clear, warm, dry - Musculoskeletal Musculoskeletal: 1, strength equal bilaterally - Neurologic Neurologic: moves all extremities - Psychiatric Psychiatric: memory intact, appropriate mood/affect, intact judgment & insight - Labs CBC & Chem 7: 11/13/21 04:28 11/13/21 04:28 Labs: Abnormal lab results 11/12/21 11/12/21 11/12/21 Range/Units 15:32 16:52 17:21 WBC (4.5-11.0) K/mm3 Plt Count (140-440) K/mm3 Seg Neuts % (Manual) (40.0-70.0) % Lymphocytes % (Manual) (13.4-35.0) % Seg Neutrophils # Man (1.8-7.7) K/mm3 Lymphocytes # (Manual) (1.2-5.4) K/mm3 Sodium 131 L (137-145) mmol/L Chloride 95.0 L (98-107) mmol/L Carbon Dioxide 20 L (22-30) mmol/L BUN 23 H (7-17) mg/dL Glucose 242 H (65-100) mg/dL POC Glucose (70-105) mg/dL Lactic Acid 2.20 H* (0.7-2.0) mmol/L Calcium (8.4-10.2) mg/dL Troponin T 0.033 H (0.00-0.029) ng/mL Triglycerides 256 H (2-149) mg/dL HDL Cholesterol 24 L (40-59) mg/dL Urine WBC (Auto) > 182.0 H (0.0-6.0) /HPF U Epithel Cells (Auto) 32.0 H (0-13.0) /HPF 11/13/21 11/13/21 11/13/21 Range/Units 04:28 04: 04:28 WBC 16.6 H (4.5-11.0) K/mm3 Plt Count 131 L (140-440) K/mm3 Seg Neuts % (Manual) 79.0 H (40.0-70.0) % Lymphocytes % (Manual) 6.0 L (13.4-35.0) % Seg Neutrophils # Man 13.1 H (1.8-7.7) K/mm3 Lymphocytes # (Manual) 1.0 L (1.2-5.4) K/mm3 Sodium 135 L (137-145) mmol/L Chloride 96.8 L (98-107) mmol/L Carbon Dioxide (22-30) mmol/L BUN 23 H (7-17) mg/dL Glucose 274 H (65-100) mg/dL POC Glucose (70-105) mg/dL Lactic Acid (0.7-2.0) mmol/L Calcium 8.0 L (8.4-10.2) mg/dL Troponin T 0.036 H (0.00-0.029) ng/mL Triglycerides (2-149) mg/dL HDL Cholesterol (40-59) mg/dL Urine WBC (Auto) (0.0-6.0) /HPF U Epithel Cells (Auto) (0-13.0) /HPF 11/13/21 11/13/21 Range/Units 07:42 12:04 WBC (4.5-11.0) K/mm3 Plt Count (140-440) K/mm3 Seg Neuts % (Manual) (40.0-70.0) % Lymphocytes % (Manual) (13.4-35.0) % Seg Neutrophils # Man (1.8-7.7) K/mm3 Lymphocytes # (Manual) (1.2-5.4) K/mm3 Sodium (137-145) mmol/L Chloride (98-107) mmol/L Carbon Dioxide (22-30) mmol/L BUN (7-17) mg/dL Glucose (65-100) mg/dL POC Glucose 236 H 257 H (70-105) mg/dL Lactic Acid (0.7-2.0) mmol/L Calcium (8.4-10.2) mg/dL Troponin T (0.00-0.029) ng/mL Triglycerides (2-149) mg/dL HDL Cholesterol (40-59) mg/dL Urine WBC (Auto) (0.0-6.0) /HPF U Epithel Cells (Auto) (0-13.0) /HPF HEART Score - HEART Score Troponin: Troponin T 0.036 ng/mL (0.00-0.029) H 11/13/21 04:28
[2021-11-13] MEDS ORDERED: CETIRIZINE 10 MG TAB PO PRN (16:35)
[2021-11-13] MEDS ORDERED: oxyCODONE /ACETAMINOPHEN 5-325MG TAB PO PRN ×2 (16:55→16:57)
[2021-11-13] MEDS ORDERED: oxyCODONE 5 MG TAB PO PRN (16:58)
[2021-11-13] MEDS: oxyCODONE 5 MG TAB PO PRN (17:16)
[2021-11-13] MEDS: CEFEPIME/NS 2 GM/100 ML 2 GM/100 ML BAG IV SCH (17:16)
[2021-11-13] MEDS: oxyCODONE /ACETAMINOPHEN 5-325MG TAB PO PRN (17:16)
[2021-11-13] MEDS: INSULIN GLARGINE 100 UNITS/ML SUB-Q SCH (17:17)
[2021-11-13] MEDS ORDERED: cefTRIAXone/NS 2 GM/100 ML 2 GM/100 ML BAG IV SCH (22:00)
[2021-11-13] MEDS ORDERED: NON-FORMULARY EACH (Pregabalin [Lyrica] 100 MG Capsule) PO SCH (22:00)
[2021-11-13] MEDS: PREGABALIN 50 MG CAP PO SCH (22:03)
[2021-11-14] MEDS: SODIUM CHLORIDE 0.9% 1000 ML 1,000 ML IV SCH ×2 (00:16→14:03)
[2021-11-14] MEDS: CEFEPIME/NS 2 GM/100 ML 2 GM/100 ML BAG IV SCH ×2 (05:57→17:41)
[2021-11-14] MEDS: oxyCODONE 5 MG TAB PO PRN ×2 (05:58→14:02)
[2021-11-14] MEDS: oxyCODONE /ACETAMINOPHEN 5-325MG TAB PO PRN ×2 (05:58→14:02)
[2021-11-14] MEDS: HEPARIN 5,000 UNIT/1 ML VIAL SUB-Q SCH ×3 (05:59→21:40)
[2021-11-14] MEDS: INSULIN LISPRO 100 UNIT/ML SUB-Q SCH ×4 (09:00→21:40)
[2021-11-14] MEDS: PREGABALIN 50 MG CAP PO SCH ×2 (09:04→21:40)
[2021-11-14] MEDS: ASPIRIN EC 325 MG TAB PO SCH (09:05)
[2021-11-14] MEDS: INSULIN GLARGINE 100 UNITS/ML SUB-Q SCH ×2 (09:06→18:26)
[2021-11-14 11:30] LABS: BUN/Creatinine Ratio 21; Blood Urea Nitrogen 19 mg/dL (7-17); Calcium 8.5 mg/dL (8.4-10.2); Hemolysis Index 34
[2021-11-14 11:39] LABS: Hematocrit 36.2 % (30.3-42.9); Hemoglobin 12.4 gm/dl (10.1-14.3); Mean Corpuscular HGB Conc 34 % (30-34); Mean Corpuscular Volume 90 fl (79-97); Platelet Count 139 K/mm3 (140-440); Red Blood Count 4.01 M/mm3 (3.65-5.03); Red Cell Distribution Width 14.6 % (13.2-15.2)
--- NOTE | 2021-11-14 17:07 | Electrocardiograph Report ---
[facility] Test Date: 2021-11-13 Test Time: 07:22:13 Pat Name: BRYAN BOYER Department: Room: A458 1 Gender: F Extension Associate: GERRY : 1960 Requested By: JANEE DAVALOS Order Number: [id number] Reading MD: Tyree Garcia Measurements Intervals [place] Rate: 86 P: 58 MI: 131 QRS: 18 QRSD: 99 T: 57 QT: 406 QTc: 485 Interpretive Statements Sinus rhythm Compared to ECG 11/12/2021 08:54:29 Sinus rate has slowed Electronically Signed On 11-14-2021 17:07:36 EDT by Tyree Garcia
--- NOTE | 2021-11-14 17:11 | Electrocardiograph Report ---
[facility] Test Date: 2021-11-13 Test Time: 11:40:37 Pat Name: BRYAN BOYER Department: Room: A458 1 Gender: F [employer]arer: GERRY : 1960 Requested By: JANEE DAVALOS Order Number: [id number] Reading MD: Tyree Garcia Measurements Intervals [place] Rate: 93 P: 68 CT: 135 QRS: 16 QRSD: 89 T: 70 QT: 364 QTc: 455 Interpretive Statements Sinus rhythm Compared to ECG 11/13/2021 07:22:13 No significant changes Electronically Signed On 11-14-2021 17:11:02 EDT by Tyree Garcia
--- NOTE | 2021-11-14 19:35 | Progress Note ---
Assessment and Plan Assessment and plan: 61-year-old female with known history of hypertension, diabetes mellitus and arthritis presenting to the emergency room today with a 2-day history of chest pain. Chest pain is said to be left-sided and felt like pressure. Pain is nonradiating. She has had some mild shortness of breath. No known relieving or exacerbating factor. Patient denies any headache or dizziness and denies any diaphoresis. Denies any fever or chills, denies any nausea vomiting no abdominal pain. Work-up in the emergency room today, labs are significant for leukocytosis of 20. D-dimer of 1509, hyponatremia 131, lactic acid of 3.2, troponin level of 0.033, urinalysis is significant for UTI. Chest x-ray shows no acute findings. CT angiogram of the chest shows aneurysm of the ascending thoracic aorta measuring 4.[address] of the abdomen and pelvis suspicious for left acute pyelonephritis, cholelithiasis and colonic diverticulosis. -- Acute left pyelonephritis with sepsis and gram-negative bacteremia Current Visit: Yes Status: Acute Plan to address problem: Blood cultures growing gram-negative rods UA suggestive of UTI but urine cultures not from wound. Will obtain renal ultrasound for additional info Patient placed on empiric IV antibiotics. order repeat blood cx, consult ID -- Sepsis Current Visit: Yes Status: Acute Plan to address problem: Possibly secondary to the pyelonephritis. Continue on IV fluid. IV antibiotics as above Fever and leukocytosis improving, hemodynamically stable -- Atypical chest pain Current Visit: Yes Status: Acute Plan to address problem: Patient admitted and placed on telemetry. Borderline troponins, 0.03 and 0.03 Echo unremarkable, mild diastolic dysfunction, no wall motion abnormalities Cardiology consulted and stress test negative. Chest pain likely related to left acute pyelonephritis.. -- Diabetes mellitus with metabolic syndrom Current Visit: Yes Status: Acute Plan to address problem: Patient placed on sliding scale insulin. Will monitor Accu-Cheks closely. -- Hypertension Current Visit: Yes Status: Acute Plan to address problem: We will resume routine home medications and monitor vital signs closely. -- DVT prophylaxis Current Visit: Yes Status: Acute Plan to address problem: Patient placed on subcutaneous heparin. -- Full code status Current Visit: Yes Status: Acute Plan to address problem: Patient is full code. Discussed with the patient History Interval history: Patient was doing better. Fever and leukocytosis resolving. Denies abdominal pains nausea or chest pains now. Tolerating diet. Hospitalist Physical - Constitutional Vitals: Temp Pulse Resp BP Pulse Ox 98.8 F 81 18 134/78 92 11/14/21 16:51 11/14/21 16:51 11/14/21 16:51 11/14/21 16:51 11/14/21 16:51 General appearance: Present: no acute distress, obese - EENT Eyes: Present: PERRL, EOM intact ENT: clear oral mucosa - Neck Neck: Present: supple - Respiratory Respiratory effort: normal Respiratory: bilateral: CTA - Cardiovascular Rhythm: regular - Extremities Extremities: No edema - Abdominal General gastrointestinal: soft, non-tender, non-distended, normal bowel sounds - Integumentary Integumentary: Absent: rash - Psychiatric Psychiatric: appropriate mood/affect - Neurologic Neurologic: moves all extremities HEART Score - HEART Score Troponin: Troponin T 0.036 ng/mL (0.00-0.029) H 11/13/21 04:28 Results - Labs CBC & Chem 7: 11/14/21 10:46 11/14/21 10:46 Labs: Laboratory Last Values WBC 10.4 K/mm3 (4.5-11.0) 11/14/21 10:46 RBC 4.01 M/mm3 (3.65-5.03) 11/14/21 10:46 Hgb 12.4 gm/dl (10.1-14.3) 11/14/21 10:46 Hct 36.2 % (30.3-42.9) 11/14/21 10:46 MCV 90 fl (79-97) 11/14/21 10:46 MCH 31 pg (28-32) 11/14/21 10:46 MCHC 34 % (30-34) 11/14/21 10:46 RDW 14.6 % (13.2-15.2) 11/14/21 10:46 Plt Count 139 K/mm3 (140-440) L 11/14/21 10:46 Lymph % (Auto) 4.4 % (13.4-35.0) L 11/12/21 14:36 [place] % (Auto) 5.5 % (0.0-7.3) 11/12/21 14:36 Eos % (Auto) 0.0 % (0.0-4.3) 11/12/21 14:36 Baso % (Auto) 0.4 % (0.0-1.8) 11/12/21 14:36 Lymph # (Auto) 0.9 K/mm3 (1.2-5.4) L 11/12/21 14:36 [place] # (Auto) 1.1 K/mm3 (0.0-0.8) H 11/12/21 14:36 Eos # (Auto) 0.0 K/mm3 (0.0-0.4) 11/12/21 14:36 Baso # (Auto) 0.1 K/mm3 (0.0-0.1) 11/12/21 14:36 Add Manual Diff Complete 11/13/21 04:28 Total Counted 100 11/13/21 04:28 Seg Neutrophils % 89.7 % (40.0-70.0) H 11/12/21 14:36 Seg Neuts % (Manual) 79.0 % (40.0-70.0) H 11/13/21 04:28 Band Neutrophils % 10.0 % 11/13/21 04:28 Lymphocytes % (Manual) 6.0 % (13.4-35.0) L 11/13/21 04:28 Reactive Lymphs % (Man) 0 % 11/13/21 04:28 Monocytes % (Manual) 2.0 % (0.0-7.3) 11/13/21 04:28 Eosinophils % (Manual) 0 % (0.0-4.3) 11/13/21 04:28 Basophils % (Manual) 0 % (0.0-1.8) 11/13/21 04:28 Metamyelocytes % 3.0 % 11/13/21 04:28 Myelocytes % 0 % 11/13/21 04:28 Promyelocytes % 0 % 11/13/21 04:28 Blast Cells % 0 % 11/13/21 04:28 Nucleated RBC % Not Reportable 11/13/21 04:28 Seg Neutrophils # 17.9 K/mm3 (1.8-7.7) H 11/12/21 14:36 Seg Neutrophils # Man 13.1 K/mm3 (1.8-7.7) H 11/13/21 04:28 Band Neutrophils # 1.7 K/mm3 11/13/21 04:28 Lymphocytes # (Manual) 1.0 K/mm3 (1.2-5.4) L 11/13/21 04:28 Abs React Lymphs (Man) 0.0 K/mm3 11/13/21 04:28 Monocytes # (Manual) 0.3 K/mm3 (0.0-0.8) 11/13/21 04:28 Eosinophils # (Manual) 0.0 K/mm3 (0.0-0.4) 11/13/21 04:28 Basophils # (Manual) 0.0 K/mm3 (0.0-0.1) 11/13/21 04:28 Metamyelocytes # 0.5 K/mm3 11/13/21 04:28 Myelocytes # 0.0 K/mm3 11/13/21 04:28 Promyelocytes # 0.0 K/mm3 11/13/21 04:28 Blast Cells # 0.0 K/mm3 11/13/21 04:28 WBC Morphology Not Reportable 11/13/21 04:28 Hypersegmented Neuts Not Reportable 11/13/21 04:28 Hyposegmented Neuts Not Reportable 11/13/21 04:28 Hypogranular Neuts Not Reportable 11/13/21 04:28 Smudge Cells Not Reportable 11/13/21 04:28 Toxic Granulation Not Reportable 11/13/21 04:28 Toxic Vacuolation Not Reportable 11/13/21 04:28 Dohle Bodies Not Reportable 11/13/21 04:28 Pelger-Huet Anomaly Not Reportable 11/13/21 04:28 Andi Rods Not Reportable 11/13/21 04:28 Platelet Estimate Consistent w auto 11/13/21 04:28 Clumped Platelets Not Reportable 11/13/21 04:28 Plt Clumps, EDTA Not Reportable 11/13/21 04:28 Large Platelets Not Reportable 11/13/21 04:28 Giant Platelets Not Reportable 11/13/21 04:28 Platelet Satelliting Not Reportable 11/13/21 04:28 Plt Morphology Comment Not Reportable 11/13/21 04:28 RBC Morphology Normal 11/13/21 04:28 Dimorphic RBCs Not Reportable 11/13/21 04:28 Polychromasia Not Reportable 11/13/21 04:28 Hypochromasia Not Reportable 11/13/21 04:28 Poikilocytosis Not Reportable 11/13/21 04:28 Anisocytosis Not Reportable 11/13/21 04:28 Microcytosis Not Reportable 11/13/21 04:28 Macrocytosis Not Reportable 11/13/21 04:28 Spherocytes Not Reportable 11/13/21 04:28 Pappenheimer Bodies Not Reportable 11/13/21 04:28 Sickle Cells Not Reportable 11/13/21 04:28 Target Cells Not Reportable 11/13/21 04:28 Tear Drop Cells Not Reportable 11/13/21 04:28 Ovalocytes Not Reportable 11/13/21 04:28 Helmet Cells Not Reportable 11/13/21 04:28 Cox-Langford Bodies Not Reportable 11/13/21 04:28 [place] Rings Not Reportable 11/13/21 04:28 Sofie Cells Not Reportable 11/13/21 04:28 Bite Cells Not Reportable 11/13/21 04:28 Crenated Cell Not Reportable 11/13/21 04:28 Elliptocytes Not Reportable 11/13/21 04:28 Acanthocytes (Spur) Not Reportable 11/13/21 04:28 Rouleaux Not Reportable 11/13/21 04:28 Hemoglobin C Crystals Not Reportable 11/13/21 04:28 Schistocytes Not Reportable 11/13/21 04:28 Malaria parasites Not Reportable 11/13/21 04:28 Mario Bodies Not Reportable 11/13/21 04:28 Hem Pathologist Commnt No 11/13/21 04:28 D-Dimer 1509.65 ng/mlDDU (0-234) H 11/12/21 14:36 Sodium 131 mmol/L (137-145) L 11/14/21 10:46 Potassium 4.3 mmol/L (3.6-5.0) 11/14/21 10:46 Chloride 96.6 mmol/L (98-107) L 11/14/21 10:46 Carbon Dioxide 26 mmol/L (22-30) 11/14/21 10:46 Anion Gap 13 mmol/L 11/14/21 10:46 BUN 19 mg/dL (7-17) H 11/14/21 10:46 Creatinine 0.9 mg/dL (0.6-1.2) 11/14/21 10:46 Estimated GFR > 60 ml/min 11/14/21 10:46 BUN/Creatinine Ratio 21 % 11/14/21 10:46 Glucose 221 mg/dL (65-100) H 11/14/21 10:46 POC Glucose 214 mg/dL (70-105) H 11/14/21 11:34 Lactic Acid 1.90 mmol/L (0.7-2.0) 11/13/21 04:28 Calcium 8.5 mg/dL (8.4-10.2) 11/14/21 10:46 Total Bilirubin 0.70 mg/dL (0.1-1.2) 11/12/21 17:21 AST 24 units/L (5-40) 11/12/21 17:21 ALT 17 units/L (7-56) 11/12/21 17:21 Alkaline Phosphatase 99 units/L (35-129) 11/12/21 17:21 Total Creatine Kinase 84 units/L (30-135) 11/12/21 17:21 Troponin T 0.036 ng/mL (0.00-0.029) H 11/13/21 04:28 Total Protein 6.6 g/dL (6.3-8.2) 11/12/21 17:21 Albumin 3.9 g/dL (3.9-5) 11/12/21 17:21 Albumin/Globulin Ratio 1.4 % 11/12/21 17:21 Triglycerides 256 mg/dL (2-149) H 11/12/21 17:21 Cholesterol 142 mg/dL (50-199) 11/12/21 17:21 LDL Cholesterol Direct 64 mg/dL (50-130) 11/12/21 17:21 HDL Cholesterol 24 mg/dL (40-59) L 11/12/21 17:21 Cholesterol/HDL Ratio 5.91 % 11/12/21 17:21 Lipase 16 units/L (13-60) 11/12/21 17:21 Urine Color Red (Yellow) 11/12/21 15:32 Urine Turbidity Cloudy (Clear) 11/12/21 15:32 Urine pH 6.0 (5.0-7.0) 11/12/21 15:32 Ur Specific [place] 1.016 (1.003-1.030) 11/12/21 15:32 Urine Protein >500 mg/dL (Negative) 11/12/21 15:32 Urine Glucose (UA) Neg mg/dL (Negative) 11/12/21 15:32 Urine Ketones Neg mg/dL (Negative) 11/12/21 15:32 Urine Blood Lg (Negative) 11/12/21 15:32 Urine Nitrite Neg (Negative) 11/12/21 15:32 Urine Bilirubin Neg (Negative) 11/12/21 15:32 Urine Urobilinogen 4.0 mg/dL (<2.0) 11/12/21 15:32 Ur Leukocyte Esterase Lg (Negative) 11/12/21 15:32 Urine WBC (Auto) > 182.0 /HPF (0.0-6.0) H 11/12/21 15:32 Urine RBC (Auto) > 182.0 /HPF (0.0-6.0) 11/12/21 15:32 U Epithel Cells (Auto) 32.0 /HPF (0-13.0) H 11/12/21 15:32 Urine Bacteria (Auto) 4+ /HPF (Negative) 11/12/21 15:32 Ur Renal Epithelial Cell 1 /LPF 11/12/21 15:32 Urine Mucus 3+ /HPF 11/12/21 15:32 Urine Opiates Screen Negative 11/12/21 15:28 Urine Methadone Screen Negative 11/12/21 15:28 Ur Barbiturates Screen Negative 11/12/21 15:28 Ur Phencyclidine Scrn Negative 11/12/21 15:28 Ur Amphetamines Screen Negative 11/12/21 15:28 U Benzodiazepines Scrn Negative 11/12/21 15:28 Urine Cocaine Screen Negative 11/12/21 15:28 U Marijuana (THC) Screen Negative 11/12/21 15:28 Drugs of Abuse Note Disclamer 11/12/21 15:28 Microbiology: Microbiology 11/12/21 16:52 Peripheral/Venous Blood Culture - Preliminary Gram Negative Soren 11/12/21 16:52 Peripheral/Venous Blood Culture - Preliminary Gram Negative Soren Farley/IV: Voiding Method Toilet Active Medications - Current Medications Current Medications: Generic Name Dose Route Start Last Admin Trade Name Freq PRN Reason Stop Dose Admin Acetaminophen 650 mg 11/12/21 21:51 11/12/21 22:58 Acetaminophen 325 Mg Tab PO 650 mg Q4H PRN Administration Pain MILD(1-3)/Fever >100.5/MILLER Aspirin 325 mg 11/13/21 10:00 11/14/21 09:05 Aspirin Ec 325 Mg Tab PO 325 mg QDAY ZOHAIB Administration Atorvastatin Calcium 40 mg 11/13/21 22:00 11/13/21 22:02 Atorvastatin 40 Mg Tab PO 40 mg QHS ZOHAIB Administration Cetirizine HCl 10 mg 11/13/21 16:35 Cetirizine 10 Mg Tab PO DAILY PRN Allergy Symptoms Cyclobenzaprine HCl 10 mg 11/13/21 15:57 Cyclobenzaprine 10 Mg Tab PO TID PRN Muscle Spasm Dextrose 50 ml 11/12/21 21:51 Dextrose 50% In Water (25gm) 50 Ml Syringe IV Q30MIN PRN Hypoglycemia Protocol Heparin Sodium (Porcine) 5,000 unit 11/13/21 06:00 11/14/21 14:01 Heparin 5,000 Unit/1 Ml Vial SUB-Q 5,000 unit Q8HR ZOHAIB Administration Sodium Chloride 1,000 mls @ 125 mls/hr 11/12/21 22:00 11/14/21 14:03 Nacl 0.9% 1000 Ml IV 125 mls/hr DIRECT ZOHAIB Administration Cefepime HCl 2 gm in 100 mls @ 200 mls/hr 11/13/21 18:00 11/14/21 17:41 Cefepime/Ns 2 Gm/100 Ml IV 200 mls/hr Q12H ZOHAIB Administration Protocol Insulin Glargine 15 units 11/14/21 10:00 11/14/21 09:06 Insulin Glargine 100 Units/Ml SUB-Q 15 units QAM ZOHAIB Administration Insulin Glargine 15 units 11/13/21 18:00 11/14/21 18:26 Insulin Glargine 100 Units/Ml SUB-Q 15 units QPM ZOHAIB Administration Insulin Human Lispro 0 unit 11/12/21 22:00 11/14/21 12:28 Insulin Lispro 100 Unit/Ml SUB-Q 2 unit ACHS ZOHAIB Administration Protocol Isosorbide Mononitrate 60 mg 11/13/21 18:00 11/14/21 09:05 Isosorbide Mononitrate Er 60 Mg Tab PO 60 mg DAILY ZOHAIB Administration Magnesium Hydroxide 30 ml 11/12/21 21:51 Magnesium Hydroxide (Mom) Oral Liqd Udc PO Q4H PRN Constipation Morphine Sulfate 2 mg 11/12/21 21:51 Morphine 2 Mg/1 Ml Inj IV Q4H PRN Pain, Moderate (4-6) Morphine Sulfate 4 mg 11/12/21 21:51 Morphine 4 Mg/1 Ml Inj IV Q4H PRN Pain , Severe (7-10) Morphine Sulfate 2 mg 11/12/21 21:51 Morphine 4 Mg/1 Ml Inj IV Q5MIN PRN Chest Pain unrelieved by NTG Nitroglycerin 0.4 mg 11/12/21 21:51 Nitroglycerin 0.4 Mg Tab Subl SL Q5M PRN Chest Pain Ondansetron HCl 4 mg 11/12/21 21:51 11/13/21 10:10 Ondansetron 4 Mg/2 Ml Inj IV 4 mg Q8H PRN Administration Nausea And Vomiting Oxycodone HCl 5 mg 11/13/21 18:00 11/14/21 14:02 Oxycodone 5 Mg Tab PO 5 mg Q8H PRN Administration Pain, Moderate (4-6) Oxycodone/Acetaminophen 1 tab 11/13/21 18:00 11/14/21 14:02 Oxycodone /Acetaminophen 5-325mg Tab PO 1 tab Q8H PRN Administration Pain, Moderate (4-6) Pregabalin 100 mg 11/13/21 22:00 11/14/21 09:04 Pregabalin 50 Mg Cap PO 100 mg BID ZOHAIB Administration Sodium Chloride 10 ml 11/12/21 22:00 11/14/21 17:41 Sodium Chloride 0.9% 10 Ml Flush Syringe IV 10 ml BID ZOHAIB Administration Sodium Chloride 10 ml 11/12/21 21:51 Sodium Chloride 0.9% 10 Ml Flush Syringe IV PRN PRN LINE FLUSH
[2021-11-15] MEDS: oxyCODONE /ACETAMINOPHEN 5-325MG TAB PO PRN ×2 (00:02→21:34)
[2021-11-15] MEDS: oxyCODONE 5 MG TAB PO PRN (00:04)
[2021-11-15] MEDS: HEPARIN 5,000 UNIT/1 ML VIAL SUB-Q SCH ×3 (05:47→22:00)
[2021-11-15] MEDS: CEFEPIME/NS 2 GM/100 ML 2 GM/100 ML BAG IV SCH ×2 (05:47→18:18)
[2021-11-15] MEDS: INSULIN LISPRO 100 UNIT/ML SUB-Q SCH ×5 (07:26→21:30)
[2021-11-15 07:53] LABS: Alanine Aminotransferase 25 units/L (7-56); Albumin 3.2 g/dL (3.9-5); BUN/Creatinine Ratio 20; Blood Urea Nitrogen 16 mg/dL (7-17); Calcium 8.5 mg/dL (8.4-10.2); Hemolysis Index 21
--- NOTE | 2021-11-15 10:18 | Ultrasound Report ---
ULTRASOUND RENAL INDICATION / CLINICAL INFORMATION: Acute left pyonephritis. COMPARISON: CT 11/12/2021 FINDINGS: RIGHT KIDNEY: Length = 14.3 cm. - Echogenicity: Normal. - Cortical Thickness: Normal. - Hydronephrosis: None. - Cyst / Mass: None. - Stones: None seen. LEFT KIDNEY: Length = 11.2 cm. - Echogenicity: Normal. - Cortical Thickness: Normal. - Hydronephrosis: None. - Cyst / Mass: None. - Stones: None seen. URINARY BLADDER: No significant abnormality. FREE FLUID: None. ADDITIONAL FINDINGS: Echogenic liver. IMPRESSION: 1. No acute sonographic renal abnormality. 2. Hepatic steatosis. Signer Name: Chandler Singh MD Signed: 11/15/2021 10:13 AM Workstation Name: [id number]
[2021-11-15] MEDS: ASPIRIN EC 325 MG TAB PO SCH (10:50)
[2021-11-15] MEDS: INSULIN GLARGINE 100 UNITS/ML SUB-Q SCH ×2 (10:50→18:20)
[2021-11-15] MEDS: PREGABALIN 50 MG CAP PO SCH ×2 (10:50→21:31)
--- NOTE | 2021-11-15 19:21 | Progress Note ---
Assessment and Plan Assessment and plan: 61-year-old female with known history of hypertension, diabetes mellitus and arthritis presenting to the emergency room today with a 2-day history of chest pain. Chest pain is said to be left-sided and felt like pressure. Pain is nonradiating. She has had some mild shortness of breath. No known relieving or exacerbating factor. Patient denies any headache or dizziness and denies any diaphoresis. Denies any fever or chills, denies any nausea vomiting no abdominal pain. Work-up in the emergency room today, labs are significant for leukocytosis of 20. D-dimer of 1509, hyponatremia 131, lactic acid of 3.2, troponin level of 0.033, urinalysis is significant for UTI. Chest x-ray shows no acute findings. CT angiogram of the chest shows aneurysm of the ascending thoracic aorta measuring 4.[address] of the abdomen and pelvis suspicious for left acute pyelonephritis, cholelithiasis and colonic diverticulosis. -- Acute left pyelonephritis with sepsis and E. coli bacteremia Current Visit: Yes Status: Acute Plan to address problem: Blood cultures growing pansensitive E. coli, likely etiology UTI UA suggestive of UTI but urine cultures not from wound. Renal ultrasound unremarkable, no obstruction ID consulted/following Antibiotic therapy changed to Rocephin Possible discharge on IV Rocephin on Wednesday if repeat blood cultures negative after 48 hours -- Sepsis Current Visit: Yes Status: Acute Plan to address problem: Possibly secondary to the pyelonephritis. Continue on IV fluid. IV antibiotics as above Fever and leukocytosis resolved, hemodynamically stable -- Atypical chest pain Current Visit: Yes Status: Acute Plan to address problem: Patient admitted and placed on telemetry. Borderline troponins, 0.03 and 0.03 Echo unremarkable, mild diastolic dysfunction, no wall motion abnormalities Cardiology consulted and stress test negative. Chest pain likely related to left acute pyelonephritis.. -- Diabetes mellitus with metabolic syndrom, A1c 8.2 Current Visit: Yes Status: Acute Plan to address problem: Patient placed on sliding scale insulin. Will monitor Accu-Cheks closely. -- Hypertension Current Visit: Yes Status: Acute Plan to address problem: We will resume routine home medications and monitor vital signs closely. -- DVT prophylaxis Current Visit: Yes Status: Acute Plan to address problem: Patient placed on subcutaneous heparin. -- Full code status Current Visit: Yes Status: Acute Plan to address problem: Patient is full code. Disposition: Possible discharge on Wednesday with arrangements for IV Rocephin if repeated blood cultures negative Discussed with the patient History Interval history: Patient is doing well. Fever and leukocytosis resolved. Blood cultures growing pansensitive E. coli. Denies abdominal pain, diarrhea, nausea or flank pain. Has chronic back pains, unchanged. She has no complaints. Hospitalist Physical - Constitutional Vitals: Temp Pulse Resp BP Pulse Ox 98.2 F 78 18 141/69 96 11/15/21 15:31 11/15/21 11:40 11/15/21 15:31 11/15/21 15:31 11/15/21 11:40 General appearance: Present: no acute distress, obese - EENT Eyes: Present: PERRL, EOM intact ENT: clear oral mucosa - Neck Neck: Present: supple - Respiratory Respiratory effort: normal Respiratory: bilateral: CTA - Cardiovascular Rhythm: regular - Extremities Extremities: No edema - Abdominal General gastrointestinal: soft, non-tender, other (No CVA tenderness) - Integumentary Integumentary: Absent: rash - Psychiatric Psychiatric: appropriate mood/affect - Neurologic Neurologic: moves all extremities HEART Score - HEART Score Troponin: Troponin T 0.036 ng/mL (0.00-0.029) H 11/13/21 04:28 Results - Labs CBC & Chem 7: 11/14/21 10:46 11/15/21 06:48 Labs: Laboratory Last Values WBC 10.4 K/mm3 (4.5-11.0) 11/14/21 10:46 RBC 4.01 M/mm3 (3.65-5.03) 11/14/21 10:46 Hgb 12.4 gm/dl (10.1-14.3) 11/14/21 10:46 Hct 36.2 % (30.3-42.9) 11/14/21 10:46 MCV 90 fl (79-97) 11/14/21 10:46 MCH 31 pg (28-32) 11/14/21 10:46 MCHC 34 % (30-34) 11/14/21 10:46 RDW 14.6 % (13.2-15.2) 11/14/21 10:46 Plt Count 139 K/mm3 (140-440) L 11/14/21 10:46 Lymph % (Auto) 4.4 % (13.4-35.0) L 11/12/21 14:36 [place] % (Auto) 5.5 % (0.0-7.3) 11/12/21 14:36 Eos % (Auto) 0.0 % (0.0-4.3) 11/12/21 14:36 Baso % (Auto) 0.4 % (0.0-1.8) 11/12/21 14:36 Lymph # (Auto) 0.9 K/mm3 (1.2-5.4) L 11/12/21 14:36 [place] # (Auto) 1.1 K/mm3 (0.0-0.8) H 11/12/21 14:36 Eos # (Auto) 0.0 K/mm3 (0.0-0.4) 11/12/21 14:36 Baso # (Auto) 0.1 K/mm3 (0.0-0.1) 11/12/21 14:36 Add Manual Diff Complete 11/13/21 04:28 Total Counted 100 11/13/21 04:28 Seg Neutrophils % 89.7 % (40.0-70.0) H 11/12/21 14:36 Seg Neuts % (Manual) 79.0 % (40.0-70.0) H 11/13/21 04:28 Band Neutrophils % 10.0 % 11/13/21 04:28 Lymphocytes % (Manual) 6.0 % (13.4-35.0) L 11/13/21 04:28 Reactive Lymphs % (Man) 0 % 11/13/21 04:28 Monocytes % (Manual) 2.0 % (0.0-7.3) 11/13/21 04:28 Eosinophils % (Manual) 0 % (0.0-4.3) 11/13/21 04:28 Basophils % (Manual) 0 % (0.0-1.8) 11/13/21 04:28 Metamyelocytes % 3.0 % 11/13/21 04:28 Myelocytes % 0 % 11/13/21 04:28 Promyelocytes % 0 % 11/13/21 04:28 Blast Cells % 0 % 11/13/21 04:28 Nucleated RBC % Not Reportable 11/13/21 04:28 Seg Neutrophils # 17.9 K/mm3 (1.8-7.7) H 11/12/21 14:36 Seg Neutrophils # Man 13.1 K/mm3 (1.8-7.7) H 11/13/21 04:28 Band Neutrophils # 1.7 K/mm3 11/13/21 04:28 Lymphocytes # (Manual) 1.0 K/mm3 (1.2-5.4) L 11/13/21 04:28 Abs React Lymphs (Man) 0.0 K/mm3 11/13/21 04:28 Monocytes # (Manual) 0.3 K/mm3 (0.0-0.8) 11/13/21 04:28 Eosinophils # (Manual) 0.0 K/mm3 (0.0-0.4) 11/13/21 04:28 Basophils # (Manual) 0.0 K/mm3 (0.0-0.1) 11/13/21 04:28 Metamyelocytes # 0.5 K/mm3 11/13/21 04:28 Myelocytes # 0.0 K/mm3 11/13/21 04:28 Promyelocytes # 0.0 K/mm3 11/13/21 04:28 Blast Cells # 0.0 K/mm3 11/13/21 04:28 WBC Morphology Not Reportable 11/13/21 04:28 Hypersegmented Neuts Not Reportable 11/13/21 04:28 Hyposegmented Neuts Not Reportable 11/13/21 04:28 Hypogranular Neuts Not Reportable 11/13/21 04:28 Smudge Cells Not Reportable 11/13/21 04:28 Toxic Granulation Not Reportable 11/13/21 04:28 Toxic Vacuolation Not Reportable 11/13/21 04:28 Dohle Bodies Not Reportable 11/13/21 04:28 Pelger-Huet Anomaly Not Reportable 11/13/21 04:28 Andi Rods Not Reportable 11/13/21 04:28 Platelet Estimate Consistent w auto 11/13/21 04:28 Clumped Platelets Not Reportable 11/13/21 04:28 Plt Clumps, EDTA Not Reportable 11/13/21 04:28 Large Platelets Not Reportable 11/13/21 04:28 Giant Platelets Not Reportable 11/13/21 04:28 Platelet Satelliting Not Reportable 11/13/21 04:28 Plt Morphology Comment Not Reportable 11/13/21 04:28 RBC Morphology Normal 11/13/21 04:28 Dimorphic RBCs Not Reportable 11/13/21 04:28 Polychromasia Not Reportable 11/13/21 04:28 Hypochromasia Not Reportable 11/13/21 04:28 Poikilocytosis Not Reportable 11/13/21 04:28 Anisocytosis Not Reportable 11/13/21 04:28 Microcytosis Not Reportable 11/13/21 04:28 Macrocytosis Not Reportable 11/13/21 04:28 Spherocytes Not Reportable 11/13/21 04:28 Pappenheimer Bodies Not Reportable 11/13/21 04:28 Sickle Cells Not Reportable 11/13/21 04:28 Target Cells Not Reportable 11/13/21 04:28 Tear Drop Cells Not Reportable 11/13/21 04:28 Ovalocytes Not Reportable 11/13/21 04:28 Helmet Cells Not Reportable 11/13/21 04:28 Cox-[place] Bodies Not Reportable 11/13/21 04:28 [place] Rings Not Reportable 11/13/21 04:28 [place] Cells Not Reportable 11/13/21 04:28 Bite Cells Not Reportable 11/13/21 04:28 Crenated Cell Not Reportable 11/13/21 04:28 Elliptocytes Not Reportable 11/13/21 04:28 Acanthocytes (Spur) Not Reportable 11/13/21 04:28 Rouleaux Not Reportable 11/13/21 04:28 Hemoglobin C Crystals Not Reportable 11/13/21 04:28 Schistocytes Not Reportable 11/13/21 04:28 Malaria parasites Not Reportable 11/13/21 04:28 Mario Bodies Not Reportable 11/13/21 04:28 Hem Pathologist Commnt No 11/13/21 04:28 D-Dimer 1509.65 ng/mlDDU (0-234) H 11/12/21 14:36 Sodium 139 mmol/L (137-145) D 11/15/21 06:48 Potassium 3.8 mmol/L (3.6-5.0) 11/15/21 06:48 Chloride 103.6 mmol/L (98-107) 11/15/21 06:48 Carbon Dioxide 23 mmol/L (22-30) 11/15/21 06:48 Anion Gap 16 mmol/L 11/15/21 06:48 BUN 16 mg/dL (7-17) 11/15/21 06:48 Creatinine 0.8 mg/dL (0.6-1.2) 11/15/21 06:48 Estimated GFR > 60 ml/min 11/15/21 06:48 BUN/Creatinine Ratio 20 % 11/15/21 06:48 Glucose 149 mg/dL (65-100) H 11/15/21 06:48 POC Glucose 227 mg/dL (70-105) H 11/15/21 15:28 Hemoglobin A1c 8.2 % (4-6) H 11/15/21 Unknown Lactic Acid 1.90 mmol/L (0.7-2.0) 11/13/21 04:28 Calcium 8.5 mg/dL (8.4-10.2) 11/15/21 06:48 Total Bilirubin 0.50 mg/dL (0.1-1.2) 11/15/21 06:48 AST 25 units/L (5-40) 11/15/21 06:48 ALT 25 units/L (7-56) 11/15/21 06:48 Alkaline Phosphatase 89 units/L (35-129) 11/15/21 06:48 Total Creatine Kinase 84 units/L (30-135) 11/12/21 17:21 Troponin T 0.036 ng/mL (0.00-0.029) H 11/13/21 04:28 Total Protein 5.7 g/dL (6.3-8.2) L 11/15/21 06:48 Albumin 3.2 g/dL (3.9-5) L 11/15/21 06:48 Albumin/Globulin Ratio 1.3 % 11/15/21 06:48 Triglycerides 256 mg/dL (2-149) H 11/12/21 17:21 Cholesterol 142 mg/dL (50-199) 11/12/21 17:21 LDL Cholesterol Direct 64 mg/dL (50-130) 11/12/21 17:21 HDL Cholesterol 24 mg/dL (40-59) L 11/12/21 17:21 Cholesterol/HDL Ratio 5.91 % 11/12/21 17:21 Lipase 16 units/L (13-60) 11/12/21 17:21 Urine Color Red (Yellow) 11/12/21 15:32 Urine Turbidity Cloudy (Clear) 11/12/21 15:32 Urine pH 6.0 (5.0-7.0) 11/12/21 15:32 Ur Specific [place] 1.016 (1.003-1.030) 11/12/21 15:32 Urine Protein >500 mg/dL (Negative) 11/12/21 15:32 Urine Glucose (UA) Neg mg/dL (Negative) 11/12/21 15:32 Urine Ketones Neg mg/dL (Negative) 11/12/21 15:32 Urine Blood Lg (Negative) 11/12/21 15:32 Urine Nitrite Neg (Negative) 11/12/21 15:32 Urine Bilirubin Neg (Negative) 11/12/21 15:32 Urine Urobilinogen 4.0 mg/dL (<2.0) 11/12/21 15:32 Ur Leukocyte Esterase Lg (Negative) 11/12/21 15:32 Urine WBC (Auto) > 182.0 /HPF (0.0-6.0) H 11/12/21 15:32 Urine RBC (Auto) > 182.0 /HPF (0.0-6.0) 11/12/21 15:32 U Epithel Cells (Auto) 32.0 /HPF (0-13.0) H 11/12/21 15:32 Urine Bacteria (Auto) 4+ /HPF (Negative) 11/12/21 15:32 Ur Renal Epithelial Cell 1 /LPF 11/12/21 15:32 Urine Mucus 3+ /HPF 11/12/21 15:32 Urine Opiates Screen Negative 11/12/21 15:28 Urine Methadone Screen Negative 11/12/21 15:28 Ur Barbiturates Screen Negative 11/12/21 15:28 Ur Phencyclidine Scrn Negative 11/12/21 15:28 Ur Amphetamines Screen Negative 11/12/21 15:28 U Benzodiazepines Scrn Negative 11/12/21 15:28 Urine Cocaine Screen Negative 11/12/21 15:28 U Marijuana (THC) Screen Negative 11/12/21 15:28 Drugs of Abuse Note Disclamer 11/12/21 15:28 Microbiology: Microbiology 11/12/21 16:52 Peripheral/Venous Blood Culture - Final Escherichia Coli 11/12/21 16:52 Peripheral/Venous Blood Culture - Preliminary Escherichia Coli Farley/IV: Voiding Method Toilet Active Medications - Current Medications Current Medications: Generic Name Dose Route Start Last Admin Trade Name Freq PRN Reason Stop Dose Admin Acetaminophen 650 mg 11/12/21 21:51 11/12/21 22:58 Acetaminophen 325 Mg Tab PO 650 mg Q4H PRN Administration Pain MILD(1-3)/Fever >100.5/MILLER Aspirin 325 mg 11/13/21 10:00 11/15/21 10:50 Aspirin Ec 325 Mg Tab PO 325 mg QDAY ZOHAIB Administration Atorvastatin Calcium 40 mg 11/13/21 22:00 11/14/21 21:40 Atorvastatin 40 Mg Tab PO 40 mg QHS ZOHAIB Administration Cetirizine HCl 10 mg 11/13/21 16:35 Cetirizine 10 Mg Tab PO DAILY PRN Allergy Symptoms Cyclobenzaprine HCl 10 mg 11/13/21 15:57 Cyclobenzaprine 10 Mg Tab PO TID PRN Muscle Spasm Dextrose 50 ml 11/12/21 21:51 Dextrose 50% In Water (25gm) 50 Ml Syringe IV Q30MIN PRN Hypoglycemia Protocol Heparin Sodium (Porcine) 5,000 unit 11/13/21 06:00 11/15/21 15:19 Heparin 5,000 Unit/1 Ml Vial SUB-Q 5,000 unit Q8HR ZOHAIB Administration Cefepime HCl 2 gm in 100 mls @ 200 mls/hr 11/13/21 18:00 11/15/21 18:18 Cefepime/Ns 2 Gm/100 Ml IV 200 mls/hr Q12H ZOHAIB Administration Protocol Sodium Chloride 1,000 mls @ 75 mls/hr 11/15/21 19:45 Nacl 0.9% 1000 Ml IV DIRECT [facility] Insulin Glargine 15 units 11/14/21 10:00 11/15/21 10:50 Insulin Glargine 100 Units/Ml SUB-Q 15 units QAM ZOHAIB Administration Insulin Glargine 15 units 11/13/21 18:00 11/15/21 18:20 Insulin Glargine 100 Units/Ml SUB-Q 15 units QPM ZOHAIB Administration Insulin Human Lispro 0 unit 11/12/21 22:00 11/15/21 18:23 Insulin Lispro 100 Unit/Ml SUB-Q 3 unit ACHS ZOHAIB Administration Protocol Isosorbide Mononitrate 60 mg 11/13/21 18:00 11/15/21 10:50 Isosorbide Mononitrate Er 60 Mg Tab PO 60 mg DAILY ZOHAIB Administration Magnesium Hydroxide 30 ml 11/12/21 21:51 Magnesium Hydroxide (Mom) Oral Liqd Udc PO Q4H PRN Constipation Morphine Sulfate 2 mg 11/12/21 21:51 Morphine 2 Mg/1 Ml Inj IV Q4H PRN Pain, Moderate (4-6) Morphine Sulfate 4 mg 11/12/21 21:51 Morphine 4 Mg/1 Ml Inj IV Q4H PRN Pain , Severe (7-10) Morphine Sulfate 2 mg 11/12/21 21:51 Morphine 4 Mg/1 Ml Inj IV Q5MIN PRN Chest Pain unrelieved by NTG Nitroglycerin 0.4 mg 11/12/21 21:51 Nitroglycerin 0.4 Mg Tab Subl SL Q5M PRN Chest Pain Ondansetron HCl 4 mg 11/12/21 21:51 11/13/21 10:10 Ondansetron 4 Mg/2 Ml Inj IV 4 mg Q8H PRN Administration Nausea And Vomiting Oxycodone HCl 5 mg 11/13/21 18:00 11/15/21 00:04 Oxycodone 5 Mg Tab PO 5 mg Q8H PRN Administration Pain, Moderate (4-6) Oxycodone/Acetaminophen 1 tab 11/13/21 18:00 11/15/21 00:02 Oxycodone /Acetaminophen 5-325mg Tab PO 1 tab Q8H PRN Administration Pain, Moderate (4-6) Pregabalin 100 mg 11/13/21 22:00 11/15/21 10:50 Pregabalin 50 Mg Cap PO 100 mg BID ZOHAIB Administration Sodium Chloride 10 ml 11/12/21 22:00 11/15/21 18:18 Sodium Chloride 0.9% 10 Ml Flush Syringe IV 10 ml BID ZOHAIB Administration Sodium Chloride 10 ml 11/12/21 21:51 Sodium Chloride 0.9% 10 Ml Flush Syringe IV PRN PRN LINE FLUSH
[2021-11-15] MEDS ORDERED: SODIUM CHLORIDE 0.9% 1000 ML 1,000 ML IV SCH (19:45)
[2021-11-16] MEDS: oxyCODONE 5 MG TAB PO PRN (03:48)
[2021-11-16] MEDS: cefTRIAXone/NS 2 GM/100 ML 2 GM/100 ML BAG IV SCH (05:40)
[2021-11-16] MEDS: HEPARIN 5,000 UNIT/1 ML VIAL SUB-Q SCH ×3 (05:41→21:20)
[2021-11-16] MEDS: INSULIN LISPRO 100 UNIT/ML SUB-Q SCH ×4 (08:30→21:20)
[2021-11-16] MEDS: INSULIN GLARGINE 100 UNITS/ML SUB-Q SCH ×2 (12:00→18:45)
[2021-11-16] MEDS: PREGABALIN 50 MG CAP PO SCH ×2 (14:56→21:20)
[2021-11-16] MEDS: ASPIRIN EC 325 MG TAB PO SCH (14:56)
--- NOTE | 2021-11-16 16:34 | Progress Note ---
Assessment and Plan 61-year-old female with known history of hypertension, diabetes mellitus and arthritis presenting to the emergency room today with a 2-day history of chest pain. Chest pain is said to be left-sided and felt like pressure. Pain is nonradiating. She has had some mild shortness of breath. No known relieving or exacerbating factor. Patient denies any headache or dizziness and denies any diaphoresis. Denies any fever or chills, denies any nausea vomiting no abdominal pain. Work-up in the emergency room: labs are significant for leukocytosis of 20. D- dimer of 1509, hyponatremia 131, lactic acid of 3.2, troponin level of 0.033, urinalysis is significant for UTI. Chest x-ray shows no acute findings. CT angiogram of the chest shows aneurysm of the ascending thoracic aorta measuring 4.[address] of the abdomen and pelvis suspicious for left acute pyelonephritis, cholelithiasis and colonic diverticulosis. A/P -- Acute left pyelonephritis with sepsis and E. coli bacteremia Current Visit: Yes Status: Acute Plan to address problem: Blood cultures growing pansensitive E. coli, likely etiology UTI UA suggestive of UTI but urine cultures not from wound. Renal ultrasound unremarkable, no obstruction ID consulted/following Antibiotic therapy changed to Rocephin Possible discharge on IV Rocephin on Wednesday if repeat blood cultures negative after 48 hours -- Sepsis Current Visit: Yes Status: Acute Plan to address problem: Possibly secondary to the pyelonephritis. Continue on IV fluid. IV antibiotics as above Fever and leukocytosis resolved, hemodynamically stable -- Atypical chest pain Current Visit: Yes Status: Acute Plan to address problem: Patient admitted and placed on telemetry. Borderline troponins, 0.03 and 0.03 Echo unremarkable, mild diastolic dysfunction, no wall motion abnormalities Cardiology consulted and stress test negative. Chest pain likely related to left acute pyelonephritis.. -- Diabetes mellitus with metabolic syndrom, A1c 8.2 Current Visit: Yes Status: Acute Plan to address problem: Patient placed on sliding scale insulin. Will monitor Accu-Cheks closely. -- Hypertension Current Visit: Yes Status: Acute Plan to address problem: We will resume routine home medications and monitor vital signs closely. -- DVT prophylaxis Current Visit: Yes Status: Acute Plan to address problem: Patient placed on subcutaneous heparin. -- Full code status Current Visit: Yes Status: Acute Plan to address problem: Patient is full code. Disposition: Possible discharge on Wednesday with arrangements for IV Rocephin if repeated blood cultures negative Discussed with the patient. Patient clinically stable for discharge Subjective Date of service: 11/16/21 Interval history: patient seen and examined, doing better vitals stable, repeat blood cx result pending Objective - Exam Narrative Exam: General appearance: Present: no acute distress, obese - EENT Eyes: PERRL, EOM intact ENT: hearing intact, clear oral mucosa Ears: bilateral: normal - Neck Neck: supple, normal ROM - Respiratory Respiratory effort: normal Respiratory: bilateral: CTA - Cardiovascular Rhythm: regular Heart Sounds: Present: S1 & S2. Absent: gallop, rub Extremities: pulses intact, No edema, normal color, Full ROM - Gastrointestinal General gastrointestinal: Present: soft, non-tender, non-distended, normal bowel sounds - Integumentary Integumentary: clear, warm, dry - Musculoskeletal Musculoskeletal: 1, strength equal bilaterally - Neurologic Neurologic: moves all extremities - Psychiatric Psychiatric: memory intact, appropriate mood/affect, intact judgment & insight - Constitutional Vitals: Vital Signs - 12hr 11/16/21 11/16/21 11/16/21 07:42 11:55 14:57 Temperature 98.6 F 98.0 F Pulse Rate 73 77 77 Respiratory 18 18 Rate Blood Pressure 162/85 150/81 O2 Sat by Pulse 96 98 Oximetry 11/16/21 15:59 Temperature 98.3 F Pulse Rate 73 Respiratory 18 Rate Blood Pressure 172/96 O2 Sat by Pulse 98 Oximetry - Labs CBC & Chem 7: 11/14/21 10:46 11/15/21 06:48 Labs: Abnormal lab results 11/15/21 11/15/21 11/16/21 Range/Units 15:28 20:24 07:40 POC Glucose 227 H 226 H 142 H (70-105) mg/dL 11/16/21 Range/Units 11:53 POC Glucose 222 H (70-105) mg/dL HEART Score - HEART Score Troponin: Troponin T 0.036 ng/mL (0.00-0.029) H 11/13/21 04:28
[2021-11-16] MEDS: oxyCODONE /ACETAMINOPHEN 5-325MG TAB PO PRN (21:25)
[2021-11-17] MEDS: oxyCODONE /ACETAMINOPHEN 5-325MG TAB PO PRN ×3 (03:21→19:15)
[2021-11-17] MEDS: HEPARIN 5,000 UNIT/1 ML VIAL SUB-Q SCH ×3 (05:16→22:58)
[2021-11-17] MEDS: cefTRIAXone/NS 2 GM/100 ML 2 GM/100 ML BAG IV SCH (05:16)
[2021-11-17] MEDS: INSULIN LISPRO 100 UNIT/ML SUB-Q SCH ×4 (11:25→23:00)
[2021-11-17] MEDS: INSULIN GLARGINE 100 UNITS/ML SUB-Q SCH ×2 (11:36→19:07)
[2021-11-17] MEDS: ASPIRIN EC 325 MG TAB PO SCH (11:37)
[2021-11-17] MEDS: PREGABALIN 50 MG CAP PO SCH ×2 (11:38→22:58)
--- NOTE | 2021-11-17 15:31 | Consultation ---
History of Present Illness - Reason for Consult Consult date: 11/17/21 - History of Present Illness 61-year-old female past medical history hypertension, diabetes, arthritis presented to hospital complaining of chest pain. She also complains of some shortness of breath. Imaging on admission was concerning for pyelonephritis. Febrile on admission to 1.3, afebrile since. White count 20, improved to 10.4. Blood cultures with E. coli. Imaging personally reviewed: CT abdomen pelvis: Abnormal appearance of the left kidney suspicious for David nephritis Review of Systems: Bold if positive, otherwise negative General: fevers, chills, rigors HEENT: visual disturbance, diplopia, eye pain Respiratory: cough, sputum, hemoptysis, shortness of breath Cardiovascular: chest pain, syncope Gastrointestinal: nausea, vomiting, diarrhea, abdominal pain Genitourinary: dysuria, hematuria, flank pain Musculoskeletal: neck pain, back pain, joint pain, edema Neurologic: headaches, seizures Hematologic: easy bruising or bleeding Endocrine: night sweats, acute weight loss Skin: rash, jaundice, redness Psychiatric: suicidal, homicidal ideation Past History Past Medical History: diabetes, hypertension Past Surgical History: hysterectomy Social history: no significant social history Family history: no significant family history Medications and Allergies Allergies Allergy/AdvReac Type Severity Reaction Status Date / Time tramadol Allergy Tremors Verified 11/17/21 10:32 Home Medications Medication Instructions Recorded Confirmed Last Taken Type AtorvaSTATin [Lipitor] 40 mg PO QPM 11/13/21 11/17/21 5 Days Ago History ~11/12/21 Insulin Glargine [Lantus VIAL] 35 units SQ QAM 11/13/21 11/17/21 11/09/21 History Insulin Glargine [Lantus VIAL] 35 units SQ QPM 11/13/21 11/17/21 5 Days Ago History ~11/12/21 Isosorbide Mononitrate [Isosorbide 60 mg PO DAILY 11/13/21 11/17/21 5 Days Ago History Mononitrate ER] ~11/12/21 Meloxicam [Mobic] 15 mg PO Q3D 11/13/21 11/17/21 5 Days Ago History ~11/12/21 Nitroglycerin [Nitrostat] 0.4 mg PO PRN 11/13/21 11/17/21 5 Days Ago History ~11/12/21 Pregabalin [Lyrica] 100 mg PO BID 11/13/21 11/17/21 5 Days Ago History ~11/12/21 Amitriptyline [Elavil] 50 mg PO HS 11/17/21 11/17/21 5 Days Ago History ~11/12/21 Cholecalciferol Vit D3 [Vitamin D3 1,000 unit PO QDAY 11/17/21 11/17/21 5 Days Ago History 1,000 UNIT TAB] ~11/12/21 Cyanocobalamin [Vitamin B-12] 1,000 mcg IM QMONTH 11/17/21 11/17/21 5 Days Ago History ~11/12/21 Diclofenac Sodium [Voltaren 2 gm TP QDAY PRN 11/17/21 11/17/21 5 Days Ago History Arthritis Pain] ~11/12/21 Lisinopril/Hydrochlorothiazide 1 tab PO QDAY 11/17/21 11/17/21 5 Days Ago History [Zestoretic 20-25 mg] ~11/12/21 Lispro Insulin [HumaLOG] 30 unit SQ TIDWM 11/17/21 11/17/21 5 Days Ago History ~11/12/21 Loratadine [Claritin] 10 mg PO QDAY 11/17/21 11/17/21 5 Days Ago History ~11/12/21 Oxycodone HCl/Acetaminophen 1 each PO TID PRN 11/17/21 11/17/21 5 Days Ago History [Oxycodone-Acetaminophen 10-325] ~11/12/21 Sertraline [Zoloft] 100 mg PO QDAY 11/17/21 11/17/21 5 Days Ago History ~11/12/21 methOCARBAMOL [Robaxin TAB] 1,000 mg PO TID PRN 11/17/21 11/17/21 5 Days Ago History ~11/12/21 Active Meds: Active Medications Acetaminophen (Acetaminophen 325 Mg Tab) 650 mg PO Q4H PRN PRN Reason: Pain MILD(1-3)/Fever >100.5/MILLER Last Admin: 11/12/21 22:58 Dose: 650 mg Aspirin (Aspirin Ec 325 Mg Tab) 325 mg PO QDAY PENDING SALE TO [facility] Last Admin: 11/17/21 11:37 Dose: 325 mg Atorvastatin Calcium (Atorvastatin 40 Mg Tab) 40 mg PO QHS PENDING SALE TO [facility] Last Admin: 11/16/21 21:20 Dose: 40 mg Cetirizine HCl (Cetirizine 10 Mg Tab) 10 mg PO DAILY PRN PRN Reason: Allergy Symptoms Cyclobenzaprine HCl (Cyclobenzaprine 10 Mg Tab) 10 mg PO TID PRN PRN Reason: Muscle Spasm Last Admin: 11/16/21 14:57 Dose: 10 mg Dextrose (Dextrose 50% In Water (25gm) 50 Ml Syringe) 50 ml IV Q30MIN PRN; P rotocol PRN Reason: Hypoglycemia Heparin Sodium (Porcine) (Heparin 5,000 Unit/1 Ml Vial) 5,000 unit SUB-Q Q8HR PENDING SALE TO [facility] Last Admin: 11/17/21 05:16 Dose: 5,000 unit Sodium Chloride (Nacl 0.9% 1000 Ml) 1,000 mls @ 75 mls/hr IV DIRECT ZOHAIB Last Admin: 11/17/21 00:23 Dose: 75 mls/hr Ceftriaxone Sodium (Rocephin/Ns 2 Gm/100 Ml) 2 gm in 100 mls @ 200 mls/hr IV Q24H PENDING SALE TO [facility]; Protocol Stop: 11/20/21 05:29 Last Admin: 11/17/21 05:16 Dose: 200 mls/hr Insulin Glargine (Insulin Glargine 100 Units/Ml) 15 units SUB-Q QAM PENDING SALE TO [facility] Last Admin: 11/17/21 11:36 Dose: 15 units Insulin Glargine (Insulin Glargine 100 Units/Ml) 15 units SUB-Q QPM PENDING SALE TO [facility] Last Admin: 11/16/21 18:45 Dose: 15 units Insulin Human Lispro (Insulin Lispro 100 Unit/Ml) 0 unit SUB-Q ACHS PENDING SALE TO [facility]; Protocol Last Admin: 11/17/21 11:48 Dose: Not Given Isosorbide Mononitrate (Isosorbide Mononitrate Er 60 Mg Tab) 60 mg PO DAILY PENDING SALE TO [facility] Last Admin: 11/17/21 11:37 Dose: 60 mg Magnesium Hydroxide (Magnesium Hydroxide (Mom) Oral Liqd Udc) 30 ml PO Q4H PRN PRN Reason: Constipation Nitroglycerin (Nitroglycerin 0.4 Mg Tab Subl) 0.4 mg SL Q5M PRN PRN Reason: Chest Pain Ondansetron HCl (Ondansetron 4 Mg/2 Ml Inj) 4 mg IV Q8H PRN PRN Reason: Nausea And Vomiting Last Admin: 11/13/21 10:10 Dose: 4 mg Oxycodone/Acetaminophen (Oxycodone /Acetaminophen 5-325mg Tab) 1 tab PO Q6H PRN PRN Reason: Pain, Moderate (4-6) Last Admin: 11/17/21 12:17 Dose: 1 tab Pregabalin (Pregabalin 50 Mg Cap) 100 mg PO BID PENDING SALE TO [facility] Last Admin: 11/17/21 11:38 Dose: 100 mg Sodium Chloride (Sodium Chloride 0.9% 10 Ml Flush Syringe) 10 ml IV BID PENDING SALE TO [facility] Last Admin: 11/17/21 11:40 Dose: 10 ml Sodium Chloride (Sodium Chloride 0.9% 10 Ml Flush Syringe) 10 ml IV PRN PRN PRN Reason: LINE FLUSH Physical Examination - Physical Exam Narrative exam: Physical Exam: Constitutional: Alert, cooperative. No acute distress Head, Ears, Nose: Normocephalic, atraumatic. External ears, nose normal Eyes: Conjunctivae/corneas clear. No icterus. No ptosis. Neck: Supple, no meningeal signs Oral: dentition fair, no thrush Cardiovascular: S1, S2 normal. Respiratory: Good air entry, clear to auscultation bilaterally GI: Soft, non-tender; bowel sounds normal. No peritoneal signs. Musculoskeletal: No pedal edema, no cyanosis. Skin: No rash or abscess Hem/Lymphatic: No palpable cervical or supraclavicular nodes. No lymphangitis Psych: Mood ok. Affect normal Neurological: Awake, alert, oriented. No gross abnormality - Constitutional Vitals: Vital Signs Temp Pulse Resp BP Pulse Ox 97.4 F L 68 18 185/104 96 11/17/21 11:25 11/17/21 11:37 11/17/21 12:17 11/17/21 11:25 11/17/21 11:25 Temperature -Last 24 Hours Temperature 97.4 F Temperature 98.4 F Temperature 98.3 F Temperature 98.4 F Temperature 98.3 F Temperature 98.0 F Temperature 98.3 F Results - Labs CBC & Chem 7: 11/14/21 10:46 11/15/21 06:48 Labs: Abnormal lab results 11/16/21 11/16/21 11/17/21 Range/Units 15:52 20:40 07:51 POC Glucose 201 H 181 H 109 H (70-105) mg/dL Assessment and Plan Cultures: Blood culture E. coli A/P: 61-year-old female past medical history hypertension, diabetes, arthritis now with: #Acute sepsis: Present on admission with fevers and acidosis. Secondary to left pyelonephritis. #E. coli bacteremia: Likely secondary to pyelonephritis #Left pyelonephritis Recs: -Continue ceftriaxone 2 g every 24 hours while inpatient -On discharge okay to give levofloxacin 750 mg every 24 hours to complete 14 total days antibiotics Thank you for the consult, we will continue to follow. MD Aissat[facility] O: [phone] F: [phone]
--- NOTE | 2021-11-17 20:49 | Progress Note ---
Assessment and Plan Assessment and plan: 61-year-old female with known history of hypertension, diabetes mellitus and arthritis presenting to the emergency room today with a 2-day history of chest pain. Chest pain is said to be left-sided and felt like pressure. Pain is nonradiating. She has had some mild shortness of breath. No known relieving or exacerbating factor. Patient denies any headache or dizziness and denies any diaphoresis. Denies any fever or chills, denies any nausea vomiting no abdominal pain. Work-up in the emergency room: labs are significant for leukocytosis of 20. D- dimer of 1509, hyponatremia 131, lactic acid of 3.2, troponin level of 0.033, urinalysis is significant for UTI. Chest x-ray shows no acute findings. CT angiogram of the chest shows aneurysm of the ascending thoracic aorta measuring 4.[address] of the abdomen and pelvis suspicious for left acute pyelonephritis, cholelithiasis and colonic diverticulosis. A/P -- Acute left pyelonephritis with sepsis and E. coli bacteremia Blood cultures growing pansensitive E. coli, likely etiology UTI UA suggestive of UTI but urine cultures not from wound. Renal ultrasound unremarkable, no obstruction ID consulted/following Antibiotic therapy changed to Rocephin Possible discharge on IV Rocephin on Wednesday if repeat blood cultures negative after 48 hours -- Sepsis Possibly secondary to the pyelonephritis. Continue on IV fluid. IV antibiotics as above Fever and leukocytosis resolved, hemodynamically stable -- Atypical chest pain Patient admitted and placed on telemetry. Borderline troponins, 0.03 and 0.03 Echo unremarkable, mild diastolic dysfunction, no wall motion abnormalities Cardiology consulted and stress test negative. Chest pain likely related to left acute pyelonephritis.. -- Diabetes mellitus with metabolic syndrom, A1c 8.2 Patient placed on sliding scale insulin. Will monitor Accu-Cheks closely. -- Hypertension We will resume routine home medications and monitor vital signs closely. -- DVT prophylaxis Patient placed on subcutaneous heparin. -- Full code status Patient is full code. Disposition: Possible discharge on Wednesday with arrangements for IV Rocephin if repeated blood cultures negative Discussed with the patient. Patient clinically stable for discharge ; Possible discharge home tomorrow on oral antibiotics per ID if stable History Interval history: I seen and examined the patient at the bedside Patient's chart and medications reviewed Morbidly obese female patient admitted with pyelonephritis On empiric antibiotics feels slightly better Vital signs noted Hospitalist Physical - Constitutional Vitals: Temp Pulse Resp BP Pulse Ox 98.6 F 72 18 191/101 99 11/17/21 19:55 11/17/21 20:00 11/17/21 19:55 11/17/21 20:00 11/17/21 20:00 General appearance: Present: no acute distress, well-nourished, obese (Morbidly obese) - EENT Eyes: Present: PERRL, EOM intact - Neck Neck: Present: supple, normal ROM - Respiratory Respiratory effort: normal Respiratory: bilateral: diminished, negative: rales, rhonchi, wheezing - Cardiovascular Rhythm: regular Heart Sounds: Present: S1 & S2 - Extremities Extremities: no ischemia, No edema - Abdominal General gastrointestinal: soft, non-tender, non-distended, normal bowel sounds - Integumentary Integumentary: Present: clear, warm - Psychiatric Psychiatric: appropriate mood/affect, cooperative - Neurologic Neurologic: moves all extremities HEART Score - HEART Score Troponin: Troponin T 0.036 ng/mL (0.00-0.029) H 11/13/21 04:28 Results - Labs CBC & Chem 7: 11/14/21 10:46 11/15/21 06:48 Labs: Laboratory Last Values WBC 10.4 K/mm3 (4.5-11.0) 11/14/21 10:46 RBC 4.01 M/mm3 (3.65-5.03) 11/14/21 10:46 Hgb 12.4 gm/dl (10.1-14.3) 11/14/21 10:46 Hct 36.2 % (30.3-42.9) 11/14/21 10:46 MCV 90 fl (79-97) 11/14/21 10:46 MCH 31 pg (28-32) 11/14/21 10:46 MCHC 34 % (30-34) 11/14/21 10:46 RDW 14.6 % (13.2-15.2) 11/14/21 10:46 Plt Count 139 K/mm3 (140-440) L 11/14/21 10:46 Lymph % (Auto) 4.4 % (13.4-35.0) L 11/12/21 14:36 [place] % (Auto) 5.5 % (0.0-7.3) 11/12/21 14:36 Eos % (Auto) 0.0 % (0.0-4.3) 11/12/21 14:36 Baso % (Auto) 0.4 % (0.0-1.8) 11/12/21 14:36 Lymph # (Auto) 0.9 K/mm3 (1.2-5.4) L 11/12/21 14:36 [place] # (Auto) 1.1 K/mm3 (0.0-0.8) H 11/12/21 14:36 Eos # (Auto) 0.0 K/mm3 (0.0-0.4) 11/12/21 14:36 Baso # (Auto) 0.1 K/mm3 (0.0-0.1) 11/12/21 14:36 Add Manual Diff Complete 11/13/21 04:28 Total Counted 100 11/13/21 04:28 Seg Neutrophils % 89.7 % (40.0-70.0) H 11/12/21 14:36 Seg Neuts % (Manual) 79.0 % (40.0-70.0) H 11/13/21 04:28 Band Neutrophils % 10.0 % 11/13/21 04:28 Lymphocytes % (Manual) 6.0 % (13.4-35.0) L 11/13/21 04:28 Reactive Lymphs % (Man) 0 % 11/13/21 04:28 Monocytes % (Manual) 2.0 % (0.0-7.3) 11/13/21 04:28 Eosinophils % (Manual) 0 % (0.0-4.3) 11/13/21 04:28 Basophils % (Manual) 0 % (0.0-1.8) 11/13/21 04:28 Metamyelocytes % 3.0 % 11/13/21 04:28 Myelocytes % 0 % 11/13/21 04:28 Promyelocytes % 0 % 11/13/21 04:28 Blast Cells % 0 % 11/13/21 04:28 Nucleated RBC % Not Reportable 11/13/21 04:28 Seg Neutrophils # 17.9 K/mm3 (1.8-7.7) H 11/12/21 14:36 Seg Neutrophils # Man 13.1 K/mm3 (1.8-7.7) H 11/13/21 04:28 Band Neutrophils # 1.7 K/mm3 11/13/21 04:28 Lymphocytes # (Manual) 1.0 K/mm3 (1.2-5.4) L 11/13/21 04:28 Abs React Lymphs (Man) 0.0 K/mm3 11/13/21 04:28 Monocytes # (Manual) 0.3 K/mm3 (0.0-0.8) 11/13/21 04:28 Eosinophils # (Manual) 0.0 K/mm3 (0.0-0.4) 11/13/21 04:28 Basophils # (Manual) 0.0 K/mm3 (0.0-0.1) 11/13/21 04:28 Metamyelocytes # 0.5 K/mm3 11/13/21 04:28 Myelocytes # 0.0 K/mm3 11/13/21 04:28 Promyelocytes # 0.0 K/mm3 11/13/21 04:28 Blast Cells # 0.0 K/mm3 11/13/21 04:28 WBC Morphology Not Reportable 11/13/21 04:28 Hypersegmented Neuts Not Reportable 11/13/21 04:28 Hyposegmented Neuts Not Reportable 11/13/21 04:28 Hypogranular Neuts Not Reportable 11/13/21 04:28 Smudge Cells Not Reportable 11/13/21 04:28 Toxic Granulation Not Reportable 11/13/21 04:28 Toxic Vacuolation Not Reportable 11/13/21 04:28 Dohle Bodies Not Reportable 11/13/21 04:28 Pelger-Huet Anomaly Not Reportable 11/13/21 04:28 Andi Rods Not Reportable 11/13/21 04:28 Platelet Estimate Consistent w auto 11/13/21 04:28 Clumped Platelets Not Reportable 11/13/21 04:28 Plt Clumps, EDTA Not Reportable 11/13/21 04:28 Large Platelets Not Reportable 11/13/21 04:28 Giant Platelets Not Reportable 11/13/21 04:28 Platelet Satelliting Not Reportable 11/13/21 04:28 Plt Morphology Comment Not Reportable 11/13/21 04:28 RBC Morphology Normal 11/13/21 04:28 Dimorphic RBCs Not Reportable 11/13/21 04:28 Polychromasia Not Reportable 11/13/21 04:28 Hypochromasia Not Reportable 11/13/21 04:28 Poikilocytosis Not Reportable 11/13/21 04:28 Anisocytosis Not Reportable 11/13/21 04:28 Microcytosis Not Reportable 11/13/21 04:28 Macrocytosis Not Reportable 11/13/21 04:28 Spherocytes Not Reportable 11/13/21 04:28 Pappenheimer Bodies Not Reportable 11/13/21 04:28 Sickle Cells Not Reportable 11/13/21 04:28 Target Cells Not Reportable 11/13/21 04:28 Tear Drop Cells Not Reportable 11/13/21 04:28 Ovalocytes Not Reportable 11/13/21 04:28 Helmet Cells Not Reportable 11/13/21 04:28 Cox-Lolita Bodies Not Reportable 11/13/21 04:28 [place] Rings Not Reportable 11/13/21 04:28 Sofie Cells Not Reportable 11/13/21 04:28 Bite Cells Not Reportable 11/13/21 04:28 Crenated Cell Not Reportable 11/13/21 04:28 Elliptocytes Not Reportable 11/13/21 04:28 Acanthocytes (Spur) Not Reportable 11/13/21 04:28 Rouleaux Not Reportable 11/13/21 04:28 Hemoglobin C Crystals Not Reportable 11/13/21 04:28 Schistocytes Not Reportable 11/13/21 04:28 Malaria parasites Not Reportable 11/13/21 04:28 Mario Bodies Not Reportable 11/13/21 04:28 Hem Pathologist Commnt No 11/13/21 04:28 D-Dimer 1509.65 ng/mlDDU (0-234) H 11/12/21 14:36 Sodium 139 mmol/L (137-145) D 11/15/21 06:48 Potassium 3.8 mmol/L (3.6-5.0) 11/15/21 06:48 Chloride 103.6 mmol/L (98-107) 11/15/21 06:48 Carbon Dioxide 23 mmol/L (22-30) 11/15/21 06:48 Anion Gap 16 mmol/L 11/15/21 06:48 BUN 16 mg/dL (7-17) 11/15/21 06:48 Creatinine 0.8 mg/dL (0.6-1.2) 11/15/21 06:48 Estimated GFR > 60 ml/min 11/15/21 06:48 BUN/Creatinine Ratio 20 % 11/15/21 06:48 Glucose 149 mg/dL (65-100) H 11/15/21 06:48 POC Glucose 207 mg/dL (70-105) H 11/17/21 16:17 Hemoglobin A1c 8.2 % (4-6) H 11/15/21 Unknown Lactic Acid 1.90 mmol/L (0.7-2.0) 11/13/21 04:28 Calcium 8.5 mg/dL (8.4-10.2) 11/15/21 06:48 Total Bilirubin 0.50 mg/dL (0.1-1.2) 11/15/21 06:48 AST 25 units/L (5-40) 11/15/21 06:48 ALT 25 units/L (7-56) 11/15/21 06:48 Alkaline Phosphatase 89 units/L (35-129) 11/15/21 06:48 Total Creatine Kinase 84 units/L (30-135) 11/12/21 17:21 Troponin T 0.036 ng/mL (0.00-0.029) H 11/13/21 04:28 Total Protein 5.7 g/dL (6.3-8.2) L 11/15/21 06:48 Albumin 3.2 g/dL (3.9-5) L 11/15/21 06:48 Albumin/Globulin Ratio 1.3 % 11/15/21 06:48 Triglycerides 256 mg/dL (2-149) H 11/12/21 17:21 Cholesterol 142 mg/dL (50-199) 11/12/21 17:21 LDL Cholesterol Direct 64 mg/dL (50-130) 11/12/21 17:21 HDL Cholesterol 24 mg/dL (40-59) L 11/12/21 17:21 Cholesterol/HDL Ratio 5.91 % 11/12/21 17:21 Lipase 16 units/L (13-60) 11/12/21 17:21 Urine Color Red (Yellow) 11/12/21 15:32 Urine Turbidity Cloudy (Clear) 11/12/21 15:32 Urine pH 6.0 (5.0-7.0) 11/12/21 15:32 Ur Specific [place] 1.016 (1.003-1.030) 11/12/21 15:32 Urine Protein >500 mg/dL (Negative) 11/12/21 15:32 Urine Glucose (UA) Neg mg/dL (Negative) 11/12/21 15:32 Urine Ketones Neg mg/dL (Negative) 11/12/21 15:32 Urine Blood Lg (Negative) 11/12/21 15:32 Urine Nitrite Neg (Negative) 11/12/21 15:32 Urine Bilirubin Neg (Negative) 11/12/21 15:32 Urine Urobilinogen 4.0 mg/dL (<2.0) 11/12/21 15:32 Ur Leukocyte Esterase Lg (Negative) 11/12/21 15:32 Urine WBC (Auto) > 182.0 /HPF (0.0-6.0) H 11/12/21 15:32 Urine RBC (Auto) > 182.0 /HPF (0.0-6.0) 11/12/21 15:32 U Epithel Cells (Auto) 32.0 /HPF (0-13.0) H 11/12/21 15:32 Urine Bacteria (Auto) 4+ /HPF (Negative) 11/12/21 15:32 Ur Renal Epithelial Cell 1 /LPF 11/12/21 15:32 Urine Mucus 3+ /HPF 11/12/21 15:32 Urine Opiates Screen Negative 11/12/21 15:28 Urine Methadone Screen Negative 11/12/21 15:28 Ur Barbiturates Screen Negative 11/12/21 15:28 Ur Phencyclidine Scrn Negative 11/12/21 15:28 Ur Amphetamines Screen Negative 11/12/21 15:28 U Benzodiazepines Scrn Negative 11/12/21 15:28 Urine Cocaine Screen Negative 11/12/21 15:28 U Marijuana (THC) Screen Negative 11/12/21 15:28 Drugs of Abuse Note Disclamer 11/12/21 15:28 Microbiology: Microbiology 11/16/21 05:31 Peripheral/Venous Blood Culture - Preliminary NO GROWTH AFTER 24 HOURS 11/16/21 05:10 Peripheral/Venous Blood Culture - Preliminary NO GROWTH AFTER 24 HOURS Farley/IV: Voiding Method Toilet Active Medications - Current Medications Current Medications: Generic Name Dose Route Start Last Admin Trade Name Freq PRN Reason Stop Dose Admin Acetaminophen 650 mg 11/12/21 21:51 11/12/21 22:58 Acetaminophen 325 Mg Tab PO 650 mg Q4H PRN Administration Pain MILD(1-3)/Fever >100.5/MILLER Aspirin 325 mg 11/13/21 10:00 11/17/21 11:37 Aspirin Ec 325 Mg Tab PO 325 mg QDAY ZOHAIB Administration Atorvastatin Calcium 40 mg 11/13/21 22:00 11/16/21 21:20 Atorvastatin 40 Mg Tab PO 40 mg QHS ZOHAIB Administration Cetirizine HCl 10 mg 11/13/21 16:35 Cetirizine 10 Mg Tab PO DAILY PRN Allergy Symptoms Cyclobenzaprine HCl 10 mg 11/13/21 15:57 11/16/21 14:57 Cyclobenzaprine 10 Mg Tab PO 10 mg TID PRN Administration Muscle Spasm Dextrose 50 ml 11/12/21 21:51 Dextrose 50% In Water (25gm) 50 Ml Syringe IV Q30MIN PRN Hypoglycemia Protocol Heparin Sodium (Porcine) 5,000 unit 11/13/21 06:00 11/17/21 14:00 Heparin 5,000 Unit/1 Ml Vial SUB-Q Not Given Q8HR ZOHAIB Sodium Chloride 1,000 mls @ 75 mls/hr 11/15/21 19:45 11/17/21 00:23 Nacl 0.9% 1000 Ml IV 75 mls/hr DIRECT ZOHAIB Administration Ceftriaxone Sodium 2 gm in 100 mls @ 200 mls/hr 11/16/21 05:00 11/17/21 05:16 Rocephin/Ns 2 Gm/100 Ml IV 11/20/21 05:29 200 mls/hr Q24H ZOHAIB Administration Protocol Insulin Glargine 15 units 11/14/21 10:00 11/17/21 11:36 Insulin Glargine 100 Units/Ml SUB-Q 15 units QAM ZOHAIB Administration Insulin Glargine 15 units 11/13/21 18:00 11/17/21 19:07 Insulin Glargine 100 Units/Ml SUB-Q 15 units QPM ZOHAIB Administration Insulin Human Lispro 0 unit 11/12/21 22:00 11/17/21 19:08 Insulin Lispro 100 Unit/Ml SUB-Q 3 unit ACHS ZOHAIB Administration Protocol Isosorbide Mononitrate 60 mg 11/13/21 18:00 11/17/21 11:37 Isosorbide Mononitrate Er 60 Mg Tab PO 60 mg DAILY ZOHAIB Administration Magnesium Hydroxide 30 ml 11/12/21 21:51 Magnesium Hydroxide (Mom) Oral Liqd Udc PO Q4H PRN Constipation Nitroglycerin 0.4 mg 11/12/21 21:51 Nitroglycerin 0.4 Mg Tab Subl SL Q5M PRN Chest Pain Ondansetron HCl 4 mg 11/12/21 21:51 11/13/21 10:10 Ondansetron 4 Mg/2 Ml Inj IV 4 mg Q8H PRN Administration Nausea And Vomiting Oxycodone/Acetaminophen 1 tab 11/16/21 04:46 11/17/21 19:15 Oxycodone /Acetaminophen 5-325mg Tab PO 1 tab Q6H PRN Administration Pain, Moderate (4-6) Pregabalin 100 mg 11/13/21 22:00 11/17/21 11:38 Pregabalin 50 Mg Cap PO 100 mg BID ZOHAIB Administration Sodium Chloride 10 ml 11/12/21 22:00 11/17/21 11:40 Sodium Chloride 0.9% 10 Ml Flush Syringe IV 10 ml BID ZOHAIB Administration Sodium Chloride 10 ml 11/12/21 21:51 Sodium Chloride 0.9% 10 Ml Flush Syringe IV PRN PRN LINE FLUSH
[2021-11-17] MEDS: hydrALAZINE 20 MG/1 ML INJ IV PRN (22:57)
[2021-11-18] MEDS: oxyCODONE /ACETAMINOPHEN 5-325MG TAB PO PRN ×4 (02:27→21:13)
[2021-11-18] MEDS: HEPARIN 5,000 UNIT/1 ML VIAL SUB-Q SCH ×3 (05:12→21:15)
[2021-11-18] MEDS: cefTRIAXone/NS 2 GM/100 ML 2 GM/100 ML BAG IV SCH (05:13)
[2021-11-18] MEDS: hydrALAZINE 20 MG/1 ML INJ IV PRN ×3 (05:50→17:30)
[2021-11-18] MEDS: INSULIN LISPRO 100 UNIT/ML SUB-Q SCH ×4 (09:03→22:37)
[2021-11-18] MEDS ORDERED: hydrALAZINE 20 MG/1 ML INJ IV NR (09:15)
[2021-11-18] MEDS: ASPIRIN EC 325 MG TAB PO SCH (09:17)
[2021-11-18] MEDS: PREGABALIN 50 MG CAP PO SCH ×2 (09:17→21:14)
[2021-11-18] MEDS: INSULIN GLARGINE 100 UNITS/ML SUB-Q SCH ×2 (09:18→17:21)
[2021-11-18] MEDS: LISINOPRIL 20 MG TAB PO SCH (10:13)
[2021-11-18] MEDS: hydrALAZINE 25 MG TAB PO SCH ×2 (14:11→21:14)
--- NOTE | 2021-11-18 14:42 | Progress Note ---
Assessment and Plan Cultures: Blood culture E. coli A/P: 61-year-old female past medical history hypertension, diabetes, arthritis now with: #Acute sepsis: Present on admission with fevers and acidosis. Secondary to left pyelonephritis. #E. coli bacteremia: Likely secondary to pyelonephritis #Left pyelonephritis Recs: -Continue ceftriaxone 2 g every 24 hours while inpatient -On discharge okay to give levofloxacin 750 mg every 24 hours to complete 14 total days antibiotics Thank you for the consult, we will continue to follow. Michael Mccloud MD [facility] O: [phone] F: [phone] Subjective Date of service: 11/18/21 Interval history: Afebrile, no acute changes. Objective - Exam Narrative Exam: Physical Exam: Constitutional: Alert, cooperative. No acute distress Head, Ears, Nose: Normocephalic, atraumatic. External ears, nose normal Eyes: Conjunctivae/corneas clear. No icterus. No ptosis. Neck: Supple, no meningeal signs Oral: dentition fair, no thrush Cardiovascular: S1, S2 normal. Respiratory: Good air entry, clear to auscultation bilaterally GI: Soft, non-tender; bowel sounds normal. No peritoneal signs. Musculoskeletal: No pedal edema, no cyanosis. Skin: No rash or abscess Hem/Lymphatic: No palpable cervical or supraclavicular nodes. No lymphangitis Psych: Mood ok. Affect normal Neurological: Awake, alert, oriented. No gross abnormality - Constitutional Vitals: Vital Signs Temp Pulse Resp BP Pulse Ox 98.3 F 81 18 156/93 97 11/18/21 11:56 11/18/21 14:11 11/18/21 03:31 11/18/21 14:11 11/18/21 11:56 Temperature -Last 24 Hours Temperature 98.3 F Temperature 98.9 F Temperature 97.8 F Temperature 98.5 F Temperature 98.6 F Temperature 98.0 F - Labs CBC & Chem 7: 11/14/21 10:46 11/15/21 06:48 Labs: Abnormal lab results 11/17/21 11/17/21 11/17/21 Range/Units 11:44 16:17 21:56 POC Glucose 143 H 207 H 189 H (70-105) mg/dL 11/18/21 11/18/21 Range/Units 07:54 11:58 POC Glucose 111 H 185 H (70-105) mg/dL
[2021-11-18] MEDS ORDERED: NIFEdipine XL 30 MG TAB PO ONE (17:38)
[2021-11-18] MEDS ORDERED: ALPRAZolam 1 MG TAB PO ONE (17:39)
--- NOTE | 2021-11-18 17:44 | Progress Note ---
Assessment and Plan Assessment and plan: 61-year-old female with known history of hypertension, diabetes mellitus and arthritis presenting to the emergency room today with a 2-day history of chest pain. Chest pain is said to be left-sided and felt like pressure. Pain is nonradiating. She has had some mild shortness of breath. No known relieving or exacerbating factor. Patient denies any headache or dizziness and denies any diaphoresis. Denies any fever or chills, denies any nausea vomiting no abdominal pain. Work-up in the emergency room: labs are significant for leukocytosis of 20. D- dimer of 1509, hyponatremia 131, lactic acid of 3.2, troponin level of 0.033, urinalysis is significant for UTI. Chest x-ray shows no acute findings. CT angiogram of the chest shows aneurysm of the ascending thoracic aorta measuring 4.[address] of the abdomen and pelvis suspicious for left acute pyelonephritis, cholelithiasis and colonic diverticulosis. A/P -- Acute left pyelonephritis with sepsis and E. coli bacteremia Blood cultures growing pansensitive E. coli, likely etiology UTI UA suggestive of UTI but urine cultures not from wound. Renal ultrasound unremarkable, no obstruction ID consulted/following Antibiotic therapy changed to Rocephin Possible discharge on IV Rocephin on Wednesday if repeat blood cultures negative after 48 hours -- Sepsis Possibly secondary to the pyelonephritis. Continue on IV fluid. IV antibiotics as above Fever and leukocytosis resolved, hemodynamically stable -- Atypical chest pain Patient admitted and placed on telemetry. Borderline troponins, 0.03 and 0.03 Echo unremarkable, mild diastolic dysfunction, no wall motion abnormalities Cardiology consulted and stress test negative. Chest pain likely related to left acute pyelonephritis.. -- Diabetes mellitus with metabolic syndrom, A1c 8.2 Patient placed on sliding scale insulin. Will monitor Accu-Cheks closely. --Malignant hypertension Difficult to control, continue multiple antihypertensives As needed medications. Closely monitor -- DVT prophylaxis Patient placed on subcutaneous heparin. -- Full code status Patient is full code. Disposition: Possible discharge on Wednesday with arrangements for IV Rocephin if repeated blood cultures negative Discussed with the patient. Patient clinically stable for discharge ; Possible discharge home tomorrow on oral antibiotics per ID if stable History Interval history: I have seen and examined the patient side during the morning rounds Patient feels better is anxious to go home However patient's blood pressures are uncontrolled Patient reports that her blood pressure always runs in the 170s and 180s In spite of multiple medications, and she does not have any symptoms She also reports that her primary care physician is aware of it Patient has very difficult to control blood pressure Denies chest pain or shortness of breath Patient denies headache or dizziness Hospitalist Physical - Constitutional Vitals: Temp Pulse Resp BP Pulse Ox 98.3 F 94 H 18 194/90 98 11/18/21 11:56 11/18/21 16:27 11/18/21 03:31 11/18/21 17:30 11/18/21 14:13 General appearance: Present: no acute distress, obese - EENT Eyes: Present: PERRL, EOM intact - Neck Neck: Present: supple, normal ROM - Respiratory Respiratory effort: normal Respiratory: bilateral: diminished, negative: rales, rhonchi, wheezing - Cardiovascular Rhythm: regular Heart Sounds: Present: S1 & S2 - Extremities Extremities: no ischemia, No edema - Abdominal General gastrointestinal: soft, non-tender, non-distended, normal bowel sounds - Integumentary Integumentary: Present: clear, warm - Psychiatric Psychiatric: appropriate mood/affect, cooperative - Neurologic Neurologic: CNII-XII intact, moves all extremities HEART Score - HEART Score Troponin: Troponin T 0.036 ng/mL (0.00-0.029) H 11/13/21 04:28 Results - Labs CBC & Chem 7: 11/14/21 10:46 11/15/21 06:48 Labs: Laboratory Last Values WBC 10.4 K/mm3 (4.5-11.0) 11/14/21 10:46 RBC 4.01 M/mm3 (3.65-5.03) 11/14/21 10:46 Hgb 12.4 gm/dl (10.1-14.3) 11/14/21 10:46 Hct 36.2 % (30.3-42.9) 11/14/21 10:46 MCV 90 fl (79-97) 11/14/21 10:46 MCH 31 pg (28-32) 11/14/21 10:46 MCHC 34 % (30-34) 11/14/21 10:46 RDW 14.6 % (13.2-15.2) 11/14/21 10:46 Plt Count 139 K/mm3 (140-440) L 11/14/21 10:46 Lymph % (Auto) 4.4 % (13.4-35.0) L 11/12/21 14:36 [place]arton % (Auto) 5.5 % (0.0-7.3) 11/12/21 14:36 Eos % (Auto) 0.0 % (0.0-4.3) 11/12/21 14:36 Baso % (Auto) 0.4 % (0.0-1.8) 11/12/21 14:36 Lymph # (Auto) 0.9 K/mm3 (1.2-5.4) L 11/12/21 14:36 Wharton # (Auto) 1.1 K/mm3 (0.0-0.8) H 11/12/21 14:36 Eos # (Auto) 0.0 K/mm3 (0.0-0.4) 11/12/21 14:36 Baso # (Auto) 0.1 K/mm3 (0.0-0.1) 11/12/21 14:36 Add Manual Diff Complete 11/13/21 04:28 Total Counted 100 11/13/21 04:28 Seg Neutrophils % 89.7 % (40.0-70.0) H 11/12/21 14:36 Seg Neuts % (Manual) 79.0 % (40.0-70.0) H 11/13/21 04:28 Band Neutrophils % 10.0 % 11/13/21 04:28 Lymphocytes % (Manual) 6.0 % (13.4-35.0) L 11/13/21 04:28 Reactive Lymphs % (Man) 0 % 11/13/21 04:28 Monocytes % (Manual) 2.0 % (0.0-7.3) 11/13/21 04:28 Eosinophils % (Manual) 0 % (0.0-4.3) 11/13/21 04:28 Basophils % (Manual) 0 % (0.0-1.8) 11/13/21 04:28 Metamyelocytes % 3.0 % 11/13/21 04:28 Myelocytes % 0 % 11/13/21 04:28 Promyelocytes % 0 % 11/13/21 04:28 Blast Cells % 0 % 11/13/21 04:28 Nucleated RBC % Not Reportable 11/13/21 04:28 Seg Neutrophils # 17.9 K/mm3 (1.8-7.7) H 11/12/21 14:36 Seg Neutrophils # Man 13.1 K/mm3 (1.8-7.7) H 11/13/21 04:28 Band Neutrophils # 1.7 K/mm3 11/13/21 04:28 Lymphocytes # (Manual) 1.0 K/mm3 (1.2-5.4) L 11/13/21 04:28 Abs React Lymphs (Man) 0.0 K/mm3 11/13/21 04:28 Monocytes # (Manual) 0.3 K/mm3 (0.0-0.8) 11/13/21 04:28 Eosinophils # (Manual) 0.0 K/mm3 (0.0-0.4) 11/13/21 04:28 Basophils # (Manual) 0.0 K/mm3 (0.0-0.1) 11/13/21 04:28 Metamyelocytes # 0.5 K/mm3 11/13/21 04:28 Myelocytes # 0.0 K/mm3 11/13/21 04:28 Promyelocytes # 0.0 K/mm3 11/13/21 04:28 Blast Cells # 0.0 K/mm3 11/13/21 04:28 WBC Morphology Not Reportable 11/13/21 04:28 Hypersegmented Neuts Not Reportable 11/13/21 04:28 Hyposegmented Neuts Not Reportable 11/13/21 04:28 Hypogranular Neuts Not Reportable 11/13/21 04:28 Smudge Cells Not Reportable 11/13/21 04:28 Toxic Granulation Not Reportable 11/13/21 04:28 Toxic Vacuolation Not Reportable 11/13/21 04:28 Dohle Bodies Not Reportable 11/13/21 04:28 Pelger-Huet Anomaly Not Reportable 11/13/21 04:28 Andi Rods Not Reportable 11/13/21 04:28 Platelet Estimate Consistent w auto 11/13/21 04:28 Clumped Platelets Not Reportable 11/13/21 04:28 Plt Clumps, EDTA Not Reportable 11/13/21 04:28 Large Platelets Not Reportable 11/13/21 04:28 Giant Platelets Not Reportable 11/13/21 04:28 Platelet Satelliting Not Reportable 11/13/21 04:28 Plt Morphology Comment Not Reportable 11/13/21 04:28 RBC Morphology Normal 11/13/21 04:28 Dimorphic RBCs Not Reportable 11/13/21 04:28 Polychromasia Not Reportable 11/13/21 04:28 Hypochromasia Not Reportable 11/13/21 04:28 Poikilocytosis Not Reportable 11/13/21 04:28 Anisocytosis Not Reportable 11/13/21 04:28 Microcytosis Not Reportable 11/13/21 04:28 Macrocytosis Not Reportable 11/13/21 04:28 Spherocytes Not Reportable 11/13/21 04:28 Pappenheimer Bodies Not Reportable 11/13/21 04:28 Sickle Cells Not Reportable 11/13/21 04:28 Target Cells Not Reportable 11/13/21 04:28 Tear Drop Cells Not Reportable 11/13/21 04:28 Ovalocytes Not Reportable 11/13/21 04:28 Helmet Cells Not Reportable 11/13/21 04:28 [place] Bodies Not Reportable 11/13/21 04:28 Lincoln Rings Not Reportable 11/13/21 04:28 Sofie Cells Not Reportable 11/13/21 04:28 Bite Cells Not Reportable 11/13/21 04:28 Crenated Cell Not Reportable 11/13/21 04:28 Elliptocytes Not Reportable 11/13/21 04:28 Acanthocytes (Spur) Not Reportable 11/13/21 04:28 Rouleaux Not Reportable 11/13/21 04:28 Hemoglobin C Crystals Not Reportable 11/13/21 04:28 Schistocytes Not Reportable 11/13/21 04:28 Malaria parasites Not Reportable 11/13/21 04:28 Mario Bodies Not Reportable 11/13/21 04:28 Hem Pathologist Commnt No 11/13/21 04:28 D-Dimer 1509.65 ng/mlDDU (0-234) H 11/12/21 14:36 Sodium 139 mmol/L (137-145) D 11/15/21 06:48 Potassium 3.8 mmol/L (3.6-5.0) 11/15/21 06:48 Chloride 103.6 mmol/L (98-107) 11/15/21 06:48 Carbon Dioxide 23 mmol/L (22-30) 11/15/21 06:48 Anion Gap 16 mmol/L 11/15/21 06:48 BUN 16 mg/dL (7-17) 11/15/21 06:48 Creatinine 0.8 mg/dL (0.6-1.2) 11/15/21 06:48 Estimated GFR > 60 ml/min 11/15/21 06:48 BUN/Creatinine Ratio 20 % 11/15/21 06:48 Glucose 149 mg/dL (65-100) H 11/15/21 06:48 POC Glucose 124 mg/dL (70-105) H 11/18/21 15:18 Hemoglobin A1c 8.2 % (4-6) H 11/15/21 Unknown Lactic Acid 1.90 mmol/L (0.7-2.0) 11/13/21 04:28 Calcium 8.5 mg/dL (8.4-10.2) 11/15/21 06:48 Total Bilirubin 0.50 mg/dL (0.1-1.2) 11/15/21 06:48 AST 25 units/L (5-40) 11/15/21 06:48 ALT 25 units/L (7-56) 11/15/21 06:48 Alkaline Phosphatase 89 units/L (35-129) 11/15/21 06:48 Total Creatine Kinase 84 units/L (30-135) 11/12/21 17:21 Troponin T 0.036 ng/mL (0.00-0.029) H 11/13/21 04:28 Total Protein 5.7 g/dL (6.3-8.2) L 11/15/21 06:48 Albumin 3.2 g/dL (3.9-5) L 11/15/21 06:48 Albumin/Globulin Ratio 1.3 % 11/15/21 06:48 Triglycerides 256 mg/dL (2-149) H 11/12/21 17:21 Cholesterol 142 mg/dL (50-199) 11/12/21 17:21 LDL Cholesterol Direct 64 mg/dL (50-130) 11/12/21 17:21 HDL Cholesterol 24 mg/dL (40-59) L 11/12/21 17:21 Cholesterol/HDL Ratio 5.91 % 11/12/21 17:21 Lipase 16 units/L (13-60) 11/12/21 17:21 Urine Color Red (Yellow) 11/12/21 15:32 Urine Turbidity Cloudy (Clear) 11/12/21 15:32 Urine pH 6.0 (5.0-7.0) 11/12/21 15:32 Ur Specific [place] 1.016 (1.003-1.030) 11/12/21 15:32 Urine Protein >500 mg/dL (Negative) 11/12/21 15:32 Urine Glucose (UA) Neg mg/dL (Negative) 11/12/21 15:32 Urine Ketones Neg mg/dL (Negative) 11/12/21 15:32 Urine Blood Lg (Negative) 11/12/21 15:32 Urine Nitrite Neg (Negative) 11/12/21 15:32 Urine Bilirubin Neg (Negative) 11/12/21 15:32 Urine Urobilinogen 4.0 mg/dL (<2.0) 11/12/21 15:32 Ur Leukocyte Esterase Lg (Negative) 11/12/21 15:32 Urine WBC (Auto) > 182.0 /HPF (0.0-6.0) H 11/12/21 15:32 Urine RBC (Auto) > 182.0 /HPF (0.0-6.0) 11/12/21 15:32 U Epithel Cells (Auto) 32.0 /HPF (0-13.0) H 11/12/21 15:32 Urine Bacteria (Auto) 4+ /HPF (Negative) 11/12/21 15:32 Ur Renal Epithelial Cell 1 /LPF 11/12/21 15:32 Urine Mucus 3+ /HPF 11/12/21 15:32 Urine Opiates Screen Negative 11/12/21 15:28 Urine Methadone Screen Negative 11/12/21 15:28 Ur Barbiturates Screen Negative 11/12/21 15:28 Ur Phencyclidine Scrn Negative 11/12/21 15:28 Ur Amphetamines Screen Negative 11/12/21 15:28 U Benzodiazepines Scrn Negative 11/12/21 15:28 Urine Cocaine Screen Negative 11/12/21 15:28 U Marijuana (THC) Screen Negative 11/12/21 15:28 Drugs of Abuse Note Disclamer 11/12/21 15:28 Microbiology: Microbiology 11/16/21 05:31 Peripheral/Venous Blood Culture - Preliminary NO GROWTH AFTER 48 HOURS 11/16/21 05:10 Peripheral/Venous Blood Culture - Preliminary NO GROWTH AFTER 48 HOURS Farley/IV: Voiding Method Toilet Active Medications - Current Medications Current Medications: Generic Name Dose Route Start Last Admin Trade Name Freq PRN Reason Stop Dose Admin Acetaminophen 650 mg 11/12/21 21:51 11/12/21 22:58 Acetaminophen 325 Mg Tab PO 650 mg Q4H PRN Administration Pain MILD(1-3)/Fever >100.5/MILLER Aspirin 325 mg 11/13/21 10:00 11/18/21 09:17 Aspirin Ec 325 Mg Tab PO 325 mg QDAY ZOHAIB Administration Atorvastatin Calcium 40 mg 11/13/21 22:00 11/17/21 22:58 Atorvastatin 40 Mg Tab PO 40 mg QHS ZOHAIB Administration Cetirizine HCl 10 mg 11/13/21 16:35 Cetirizine 10 Mg Tab PO DAILY PRN Allergy Symptoms Cyclobenzaprine HCl 10 mg 11/13/21 15:57 11/16/21 14:57 Cyclobenzaprine 10 Mg Tab PO 10 mg TID PRN Administration Muscle Spasm Dextrose 50 ml 11/12/21 21:51 Dextrose 50% In Water (25gm) 50 Ml Syringe IV Q30MIN PRN Hypoglycemia Protocol Heparin Sodium (Porcine) 5,000 unit 11/13/21 06:00 11/18/21 14:11 Heparin 5,000 Unit/1 Ml Vial SUB-Q 5,000 unit Q8HR ZOHAIB Administration Hydralazine HCl 50 mg 11/18/21 14:00 11/18/21 14:11 Hydralazine 25 Mg Tab PO 50 mg Q8HR ZOHAIB Administration Hydralazine HCl 20 mg 11/18/21 14:00 11/18/21 17:30 Hydralazine 20 Mg/1 Ml Inj IV 20 mg Q4HR PRN Administration Hypertension Ceftriaxone Sodium 2 gm in 100 mls @ 200 mls/hr 11/16/21 05:00 11/18/21 05:13 Rocephin/Ns 2 Gm/100 Ml IV 11/26/21 05:29 200 mls/hr Q24H ZOHAIB Administration Protocol Insulin Glargine 15 units 11/14/21 10:00 11/18/21 09:18 Insulin Glargine 100 Units/Ml SUB-Q 15 units QAM ZOHAIB Administration Insulin Glargine 15 units 11/13/21 18:00 11/18/21 17:21 Insulin Glargine 100 Units/Ml SUB-Q 15 units QPM ZOHAIB Administration Insulin Human Lispro 0 unit 11/12/21 22:00 11/18/21 17:08 Insulin Lispro 100 Unit/Ml SUB-Q Not Given ACHS [facility] Protocol Isosorbide Mononitrate 60 mg 11/13/21 18:00 11/18/21 09:18 Isosorbide Mononitrate Er 60 Mg Tab PO 60 mg DAILY ZOHAIB Administration Lisinopril 20 mg 11/18/21 11:00 11/18/21 10:13 Lisinopril 20 Mg Tab PO 20 mg QDAY [facility] Administration Magnesium Hydroxide 30 ml 11/12/21 21:51 Magnesium Hydroxide (Mom) Oral Liqd Udc PO Q4H PRN Constipation Methocarbamol 1,000 mg 11/18/21 17:41 Methocarbamol 500 Mg Tab PO TID PRN Muscle Spasm Nifedipine 30 mg 11/18/21 22:00 Nifedipine Xl 30 Mg Tab PO Q12HR [facility] Nitroglycerin 0.4 mg 11/12/21 21:51 Nitroglycerin 0.4 Mg Tab Subl SL Q5M PRN Chest Pain Ondansetron HCl 4 mg 11/12/21 21:51 11/13/21 10:10 Ondansetron 4 Mg/2 Ml Inj IV 4 mg Q8H PRN Administration Nausea And Vomiting Oxycodone/Acetaminophen 1 tab 11/16/21 04:46 11/18/21 15:48 Oxycodone /Acetaminophen 5-325mg Tab PO 1 tab Q6H PRN Administration Pain, Moderate (4-6) Pregabalin 100 mg 11/13/21 22:00 11/18/21 09:17 Pregabalin 50 Mg Cap PO 100 mg BID ZOHAIB Administration Sodium Chloride 10 ml 11/12/21 22:00 11/18/21 09:18 Sodium Chloride 0.9% 10 Ml Flush Syringe IV 10 ml BID ZOHAIB Administration Sodium Chloride 10 ml 11/12/21 21:51 Sodium Chloride 0.9% 10 Ml Flush Syringe IV PRN PRN LINE FLUSH
[2021-11-18] MEDS ORDERED: cloNIDine 0.1 MG TAB PO PRN (17:47)
[2021-11-18] MEDS: NIFEdipine XL 30 MG TAB PO SCH (22:39)
[2021-11-19] MEDS: cefTRIAXone/NS 2 GM/100 ML 2 GM/100 ML BAG IV SCH (04:33)
[2021-11-19] MEDS: oxyCODONE /ACETAMINOPHEN 5-325MG TAB PO PRN (04:36)
[2021-11-19] MEDS: hydrALAZINE 25 MG TAB PO SCH (06:09)
[2021-11-19] MEDS: HEPARIN 5,000 UNIT/1 ML VIAL SUB-Q SCH (06:09)
[2021-11-19] MEDS: INSULIN LISPRO 100 UNIT/ML SUB-Q SCH ×2 (08:22→12:31)
[2021-11-19] MEDS: INSULIN GLARGINE 100 UNITS/ML SUB-Q SCH (09:20)
[2021-11-19] MEDS: LISINOPRIL 20 MG TAB PO SCH (09:21)
[2021-11-19] MEDS: PREGABALIN 50 MG CAP PO SCH (09:21)
[2021-11-19] MEDS: NIFEdipine XL 30 MG TAB PO SCH (09:21)
[2021-11-19] MEDS: ASPIRIN EC 325 MG TAB PO SCH (09:21)
--- NOTE | 2021-11-19 13:51 | Discharge Summary ---
Providers - Providers Date of Admission: 11/12/21 21:51 Date of discharge: 11/19/21 Attending physician: ERYN WALTERS 11/12/21 Consult to Cardiac Rehabilitation [CONS] Routine Reason For Exam: Phase I 11/12/21 21:51 Consult to Cardiology [CONS] Routine Consulting Provider: KOMAL OSUNA Reason For Exam: chest pain 11/13/21 10:00 Consult to Physician [CONS] Routine Comment: Consulting Provider: PAMELLA GRANGER Physician Instructions: Reason For Exam: Ascending aorta aneurysm 11/16/21 15:11 Consult to Physician [CONS] Routine Comment: Consulting Provider: NAI STRICKLAND Physician Instructions: Reason For Exam: bacteremia Primary care physician: LINE MANAGER Hospitalization Condition: Stable Pertinent studies: Stress test; no ischemia, EF 52% echocardiogram; normal wall motion and wall thickness Left ventricle ejection fraction 52% CTA chest; aneurysm of the ascending thoracic aorta 4.9 cm diameter Hospital course: 61-year-old female with known history of hypertension, diabetes mellitus and arthritis presenting to the emergency room today with a 2-day history of chest pain. Chest pain is said to be left-sided and felt like pressure. Pain is nonradiating. She has had some mild shortness of breath. No known relieving or exacerbating factor. Patient denies any headache or dizziness and denies any diaphoresis. Denies any fever or chills, denies any nausea vomiting no abdominal pain. Work-up in the emergency room: labs are significant for leukocytosis of 20. D-dimer of 1509, hyponatremia 131, lactic acid of 3.2, troponin level of 0.033, urinalysis is significant for UTI. Chest x-ray shows no acute findings. CT angiogram of the chest shows aneurysm of the ascending thoracic aorta measuring 4.[address] of the abdomen and pelvis suspicious for left acute pyelonephritis, cholelithiasis and colonic diverticulosis. A/P -- Acute left pyelonephritis with sepsis and E. coli bacteremia Blood cultures growing pansensitive E. coli, likely etiology UTI UA suggestive of UTI but urine cultures not from wound. Renal ultrasound unremarkable, no obstruction ID consulted/following Antibiotic therapy changed to Rocephin Possible discharge on IV Rocephin on Wednesday if repeat blood cultures negative after 48 hours -- Sepsis Possibly secondary to the pyelonephritis. Continue on IV fluid. IV antibiotics as above Fever and leukocytosis resolved, hemodynamically stable -- Atypical chest pain Patient admitted and placed on telemetry. Borderline troponins, 0.03 and 0.03 Echo unremarkable, mild diastolic dysfunction, no wall motion abnormalities Cardiology consulted and stress test negative. Chest pain likely related to left acute pyelonephritis.. -- Diabetes mellitus with metabolic syndrom, A1c 8.2 Patient placed on sliding scale insulin. Will monitor Accu-Cheks closely. --Malignant hypertension Difficult to control, continue multiple antihypertensives As needed medications. Closely monitor -- DVT prophylaxis Patient placed on subcutaneous heparin. --Morbid obesity; BMI 41.3 Advised diet modification, exercise as tolerated and weight reduction When medically stable --Possible obstructive sleep apnea; patient may need outpatient sleep study to rule out obstructive sleep apnea Outpatient pulmonary evaluation - Full code status Patient is full code. Disposition: Possible discharge on Wednesday with arrangements for IV Rocephin if repeated blood cultures negative Discussed with the patient. Patient clinically stable for discharge ; Possible discharge home tomorrow on oral antibiotics per ID if stable Disposition: HOME HEALTH CARE SERVICE Final Discharge Diagnosis (Prints w/discharge instructions): Sepsis secondary to urinary tract infection/E. coli. acute left pyelonephritis. Atypical chest pain resolved\. Type 2 diabetes mellitus. Malignant hypertension[labile blood pressures]. Morbid obesity BMI 41. 3 Time spent for discharge: 40 min Core Measure Documentation - Palliative Care Palliative Care/ Comfort Measures: Not Applicable - Core Measures Any of the following diagnoses?: none Exam - Constitutional Vitals: Temp Pulse Resp BP Pulse Ox 98.6 F 83 18 182/99 97 11/19/21 08:17 11/19/21 08:17 11/19/21 08:17 11/19/21 08:17 11/19/21 08:17 General appearance: Present: no acute distress, well-nourished, obese (Morbidly obese) - EENT Eyes: Present: PERRL, EOM intact - Neck Neck: Present: supple, normal ROM - Respiratory Respiratory effort: normal Respiratory: bilateral: diminished, negative: rales, rhonchi, wheezing - Cardiovascular Rhythm: regular Heart Sounds: Present: S1 & S2 - Extremities Extremities: no ischemia, No edema - Abdominal General gastrointestinal: Present: soft, non-tender, non-distended, normal bowel sounds - Integumentary Integumentary: Present: clear, warm - Musculoskeletal Musculoskeletal: strength equal bilaterally, generalized weakness - Psychiatric Psychiatric: appropriate mood/affect, cooperative - Neurologic Neurologic: CNII-XII intact, moves all extremities Plan Activity: advance as tolerated, fall precautions Diet: diabetic, other (Cardiac diet) Additional Instructions: If you have worsening symptoms contact MD or go to the nearest emergency room as needed. Strongly advised to comply with medications, diet, follow-up visits per schedule. Advised dietary modification, exercise as tolerated and weight reduction when you are medically stable Follow up with: PRIMARY CARE, [Primary Care Provider] - 7 Days PIERRE VILLA MD [Staff Physician] - 7 Days NAI STRICKLAND MD [Staff Physician] - 7 Days Prescriptions: cloNIDine [Catapres] 0.1 mg PO BID #60 tablet levoFLOXacin [Levaquin] 750 mg PO QDAY #7 tablet NIFEdipine XL [Procardia Xl] 30 mg PO Q12HR #60 tablet
[2021-11-19 13:52] VITALS: BP 130/77
== END 2021-11-19 15:36 | disposition home health service (06) | DRG 872 ==
LOC: ED 08:42 → 4A 21:51
PROVIDERS: ADMIT Internal Medicine Geriatric Medicine; ATTEND Internal Medicine
DX: A41.51 Sepsis due to Escherichia coli [E. coli] (principal); N10 Acute pyelonephritis; I10 Essential (primary) hypertension; M19.90 Unspecified osteoarthritis, unspecified site; E78.5 Hyperlipidemia, unspecified; I71.9 Aortic aneurysm of unspecified site, without rupture; E87.1 Hypo-osmolality and hyponatremia; E66.01 Morbid (severe) obesity due to excess calories; Z68.41 Body mass index [BMI] 40.0-44.9, adult; E11.69 Type 2 diabetes mellitus with other specified complication; Z90.710 Acquired absence of both cervix and uterus; R07.89 Other chest pain; Z88.5 Allergy status to narcotic agent
CPT/HCPCS: 36415; 71045; 71275; 74177; 76770; 78452; 80048; 80053; 80061; 80307; 81001; 82140; 82550; 82962; 83036; 83690; 84484; 85007; 85025; 85027; 85379; 87040; 87076; 87186; 93005; 93017; 93306; 96365; 96366; 96374; 96375; 99285; G0378; Q9967; A9502; C8929; J0360; J0692; J0696; J1644; J1815; J2405; J2543; J2785; J7030

== ENCOUNTER 2022-01-30 10:15 | Inpatient (IN) | payer MEDICAID ==
--- NOTE | 2022-01-30 11:02 | Event Note ---
ED Screening Note ED Screening Note: last known normal last loan around 5/6p left side weakness; melvin lue abc intact hx htn dm no cva or mi hx to room [address] Ryder aware This initial assessment/diagnostic orders/clinical plan/treatment(s) is/are subject to change based on patients health status, clinical progression and re-assessment by fellow clinical providers in the ED. Further treatment and workup at subsequent clinical providers discretion. Patient/guardian urged not to elope from the ED as their condition may be serious if not clinically assessed and managed. Initial orders include: code stroke
--- NOTE | 2022-01-30 11:28 | Emergency Department Report ---
ED Neuro Deficit HPI - General Chief Complaint: Weakness Stated Complaint: LEFT SIDE PAIN/TRIMMERS Time Seen by Provider: 01/30/22 11:09 Source: patient Mode of arrival: Ambulatory Limitations: No Limitations - History of Present Illness Initial Comments: 61-year-old female with a past medical history of obesity, hypertension, diabetes (on insulin), chronic neck and back pain secondary to herniated disc elevated cholesterol, and an unclear cardiac history currently on isosorbide presents to the hospital with complaints of left-sided weakness and pain for the last 2 days. Patient did not come to the ER sooner because she felt like symptoms make it better. Instead she has had worsening pain and weakness with intermittent tremor to left upper and lower extremity. Patient is able to ambulate. She denies headache, chest pain, or shortness of breath. I was initially informed that symptoms started yesterday p.m. (less than 24 hours ago) therefore code stroke initiated with stat CT head and angiogram. Patient also states that she has a history of chronic neck and back pain secondary to herniated disc and chronically takes oxycodone As per previous medical record (10/2021 d/c summary) -Stress test; no ischemia, EF 52% -echocardiogram; normal wall motion and wall thickness, Left ventricle ejection fraction 52% -CTA chest; aneurysm of the ascending thoracic aorta 4.9 cm diameter - Related Data Home Medications: Home Medications Medication Instructions Recorded Confirmed Last Taken AtorvaSTATin [Lipitor] 40 mg PO QPM 11/13/21 11/17/21 5 Days Ago ~11/12/21 Insulin Glargine [Lantus VIAL] 35 units SQ QAM 11/13/21 11/17/21 11/09/21 Insulin Glargine [Lantus VIAL] 35 units SQ QPM 11/13/21 11/17/21 5 Days Ago ~11/12/21 Isosorbide Mononitrate [Isosorbide 60 mg PO DAILY 11/13/21 11/17/21 5 Days Ago Mononitrate ER] ~11/12/21 Meloxicam [Mobic] 15 mg PO Q3D 11/13/21 11/17/21 5 Days Ago ~11/12/21 Nitroglycerin [Nitrostat] 0.4 mg PO PRN 11/13/21 11/17/21 5 Days Ago ~11/12/21 Pregabalin [Lyrica] 100 mg PO BID 11/13/21 11/17/21 5 Days Ago ~11/12/21 Amitriptyline [Elavil] 50 mg PO HS 11/17/21 11/17/21 5 Days Ago ~11/12/21 Cholecalciferol Vit D3 [Vitamin D3 1,000 unit PO QDAY 11/17/21 11/17/21 5 Days Ago 1,000 UNIT TAB] ~11/12/21 Cyanocobalamin [Vitamin B-12] 1,000 mcg IM QMONTH 11/17/21 11/17/21 5 Days Ago ~11/12/21 Diclofenac Sodium [Voltaren 2 gm TP QDAY PRN 11/17/21 11/17/21 5 Days Ago Arthritis Pain] ~11/12/21 Lisinopril/Hydrochlorothiazide 1 tab PO QDAY 11/17/21 11/17/21 5 Days Ago [Zestoretic 20-25 mg] ~11/12/21 Lispro Insulin [HumaLOG] 30 unit SQ TIDWM 11/17/21 11/17/21 5 Days Ago ~11/12/21 Loratadine [Claritin] 10 mg PO QDAY 11/17/21 11/17/21 5 Days Ago ~11/12/21 Oxycodone HCl/Acetaminophen 1 each PO TID PRN 11/17/21 11/17/21 5 Days Ago [Oxycodone-Acetaminophen 10-325] ~11/12/21 Sertraline [Zoloft] 100 mg PO QDAY 11/17/21 11/17/21 5 Days Ago ~11/12/21 methOCARBAMOL [Robaxin TAB] 1,000 mg PO TID PRN 11/17/21 11/17/21 5 Days Ago ~11/12/21 Previous Rx's Medication Instructions Recorded Last Taken Type NIFEdipine XL [Procardia Xl] 30 mg PO Q12HR #60 tablet 11/19/21 Unknown Rx cloNIDine [Catapres] 0.1 mg PO BID #60 tablet 11/19/21 Unknown Rx hydrALAZINE [Apresoline TAB] 25 mg PO Q8HR #90 tab 11/19/21 Unknown Rx levoFLOXacin [Levaquin] 750 mg PO QDAY #7 tablet 11/19/21 Unknown Rx Allergies/Adverse Reactions: Allergies Allergy/AdvReac Type Severity Reaction Status Date / Time tramadol Allergy Tremors Verified 01/30/22 10:53 ED Review of Systems ROS: Stated complaint: LEFT SIDE PAIN/TRIMMERS Other details as noted in HPI ED Past Medical Hx - Past Medical History Hx Hypertension: Yes Hx Congestive Heart Failure: No Hx Diabetes: Yes Hx Arthritis: Yes Hx Asthma: No Hx COPD: No Additional medical history: Thoracic aortic aneurysm - Surgical History Additional Surgical History: HYSTERECTOMY - Social History Smoking Status: Never Smoker - Medications Home Medications: Home Medications Medication Instructions Recorded Confirmed Last Taken Type AtorvaSTATin [Lipitor] 40 mg PO QPM 11/13/21 11/17/21 5 Days Ago History ~11/12/21 Insulin Glargine [Lantus VIAL] 35 units SQ QAM 11/13/21 11/17/21 11/09/21 History Insulin Glargine [Lantus VIAL] 35 units SQ QPM 11/13/21 11/17/21 5 Days Ago History ~11/12/21 Isosorbide Mononitrate [Isosorbide 60 mg PO DAILY 11/13/21 11/17/21 5 Days Ago History Mononitrate ER] ~11/12/21 Meloxicam [Mobic] 15 mg PO Q3D 11/13/21 11/17/21 5 Days Ago History ~11/12/21 Nitroglycerin [Nitrostat] 0.4 mg PO PRN 11/13/21 11/17/21 5 Days Ago History ~11/12/21 Pregabalin [Lyrica] 100 mg PO BID 11/13/21 11/17/21 5 Days Ago History ~11/12/21 Amitriptyline [Elavil] 50 mg PO HS 11/17/21 11/17/21 5 Days Ago History ~11/12/21 Cholecalciferol Vit D3 [Vitamin D3 1,000 unit PO QDAY 11/17/21 11/17/21 5 Days Ago History 1,000 UNIT TAB] ~11/12/21 Cyanocobalamin [Vitamin B-12] 1,000 mcg IM QMONTH 11/17/21 11/17/21 5 Days Ago History ~11/12/21 Diclofenac Sodium [Voltaren 2 gm TP QDAY PRN 11/17/21 11/17/21 5 Days Ago History Arthritis Pain] ~11/12/21 Lisinopril/Hydrochlorothiazide 1 tab PO QDAY 11/17/21 11/17/21 5 Days Ago History [Zestoretic 20-25 mg] ~11/12/21 Lispro Insulin [HumaLOG] 30 unit SQ TIDWM 11/17/21 11/17/21 5 Days Ago History ~11/12/21 Loratadine [Claritin] 10 mg PO QDAY 11/17/21 11/17/21 5 Days Ago History ~11/12/21 Oxycodone HCl/Acetaminophen 1 each PO TID PRN 11/17/21 11/17/21 5 Days Ago History [Oxycodone-Acetaminophen 10-325] ~11/12/21 Sertraline [Zoloft] 100 mg PO QDAY 11/17/21 11/17/21 5 Days Ago History ~11/12/21 methOCARBAMOL [Robaxin TAB] 1,000 mg PO TID PRN 11/17/21 11/17/21 5 Days Ago History ~11/12/21 NIFEdipine XL [Procardia Xl] 30 mg PO Q12HR #60 tablet 11/19/21 Unknown Rx cloNIDine [Catapres] 0.1 mg PO BID #60 tablet 11/19/21 Unknown Rx hydrALAZINE [Apresoline TAB] 25 mg PO Q8HR #90 tab 11/19/21 Unknown Rx levoFLOXacin [Levaquin] 750 mg PO QDAY #7 tablet 11/19/21 Unknown Rx ED Neuro Physical Exam - General Limitations: No Limitations Suspected Stroke: Yes - NIHSS Assessment Interval: Baseline 1a. Level of Consciousness: alert/keenly responsive 1b. LOC Questions: answers both correctly 1c. LOC Commands: performs tasks correctly 2. Best Gaze: normal 3. Visual: no visual loss 4. Facial Palsy: normal symmetrical movement 5b. Motor Arm Right: drift 5a. Motor Arm Left: no drift 6a. Motor Leg Left: no drift 6b. Motor Leg Right: drift 7. Limb Ataxia: absent 8. Sensory: mild/moderate sensory loss 9. Best Language: no aphasia 10. Dysarthria: normal 11. Extinction/Inattention: no abnormality Total Score: 3 Stroke Severity: Minor Stroke - Other Other exam information: General: No acute distress Head: Atraumatic Eyes: normal appearance ENT: Moist mucous membranes Neck: Normal appearance, no midline tenderness Chest: Clear to auscultation bilaterally CV: Regular rate and rhythm Abdomen: Soft, normal bowel sounds, nontender, nondistended, no rebound or guarding Back: Normal inspection Extremity: Normal inspection, full range of motion Neuro: Alert O x 3, no facial asymmetry, speech clear, see NIH stroke Psych: Appropriate behavior Skin: No rash ED Course Vital Signs 01/30/22 01/30/22 01/30/22 10:49 11:47 12:04 Temperature 98.4 F 97.8 F Pulse Rate 75 70 67 Respiratory 18 20 Rate Blood Pressure 139/70 147/88 Blood Pressure [Right] O2 Sat by Pulse 98 97 Oximetry 01/30/22 01/30/22 12:09 12:31 Temperature 97.4 F L Pulse Rate 68 Respiratory 24 Rate Blood Pressure Blood Pressure 148/88 [Right] O2 Sat by Pulse 100 96 Oximetry - Lab Data Result diagrams: 01/30/22 11:45 01/30/22 11:45 Lab Results 01/30/22 01/30/22 01/30/22 Range/Units 11:45 11:45 11:45 WBC 7.8 (4.5-11.0) K/mm3 RBC 4.10 (3.65-5.03) M/mm3 Hgb 11.9 (10.1-14.3) gm/dl Hct 36.2 (30.3-42.9) % MCV 88 (79-97) fl MCH 29 (28-32) pg MCHC 33 (30-34) % RDW 14.1 (13.2-15.2) % Plt Count 204 (140-440) K/mm3 Lymph % (Auto) 34.6 (13.4-35.0) % Harnett % (Auto) 7.8 H (0.0-7.3) % Eos % (Auto) 4.0 (0.0-4.3) % Baso % (Auto) 0.8 (0.0-1.8) % Lymph # (Auto) 2.7 (1.2-5.4) K/mm3 Harnett # (Auto) 0.6 (0.0-0.8) K/mm3 Eos # (Auto) 0.3 (0.0-0.4) K/mm3 Baso # (Auto) 0.1 (0.0-0.1) K/mm3 Seg Neutrophils % 52.8 (40.0-70.0) % Seg Neutrophils # 4.1 (1.8-7.7) K/mm3 PT 13.9 (12.2-14.9) Sec. INR 0.94 (0.87-1.13) APTT 30.2 (24.2-36.6) Sec. Thrombin Time 19.0 (15.1-19.6) Sec. Sodium 139 (137-145) mmol/L Potassium 4.7 (3.6-5.0) mmol/L Chloride 104.8 (98-107) mmol/L Carbon Dioxide 25 (22-30) mmol/L Anion Gap 14 mmol/L BUN 18 H (7-17) mg/dL Creatinine 0.8 (0.6-1.2) mg/dL Estimated GFR > 60 ml/min BUN/Creatinine Ratio 23 % Glucose 191 H (65-100) mg/dL POC Glucose (70-105) mg/dL Calcium 9.2 (8.4-10.2) mg/dL Total Bilirubin 0.40 (0.1-1.2) mg/dL AST 14 (5-40) units/L ALT 12 (7-56) units/L Alkaline Phosphatase 86 (35-129) units/L Total Creatine Kinase 76 (30-135) units/L CK-MB (CK-2) 1.1 (0.0-4.0) ng/mL CK-MB (CK-2) Rel Index 1.4 (0-4) Troponin T < 0.010 (0.00-0.029) ng/mL Total Protein 6.7 (6.3-8.2) g/dL Albumin 3.9 (3.9-5) g/dL Albumin/Globulin Ratio 1.4 % 01/30/22 Range/Units 11:53 WBC (4.5-11.0) K/mm3 RBC (3.65-5.03) M/mm3 Hgb (10.1-14.3) gm/dl Hct (30.3-42.9) % MCV (79-97) fl MCH (28-32) pg MCHC (30-34) % RDW (13.2-15.2) % Plt Count (140-440) K/mm3 Lymph % (Auto) (13.4-35.0) % Harnett % (Auto) (0.0-7.3) % Eos % (Auto) (0.0-4.3) % Baso % (Auto) (0.0-1.8) % Lymph # (Auto) (1.2-5.4) K/mm3 Harnett # (Auto) (0.0-0.8) K/mm3 Eos # (Auto) (0.0-0.4) K/mm3 Baso # (Auto) (0.0-0.1) K/mm3 Seg Neutrophils % (40.0-70.0) % Seg Neutrophils # (1.8-7.7) K/mm3 PT (12.2-14.9) Sec. INR (0.87-1.13) APTT (24.2-36.6) Sec. Thrombin Time (15.1-19.6) Sec. Sodium (137-145) mmol/L Potassium (3.6-5.0) mmol/L Chloride (98-107) mmol/L Carbon Dioxide (22-30) mmol/L Anion Gap mmol/L BUN (7-17) mg/dL Creatinine (0.6-1.2) mg/dL Estimated GFR ml/min BUN/Creatinine Ratio % Glucose (65-100) mg/dL POC Glucose 197 H (70-105) mg/dL Calcium (8.4-10.2) mg/dL Total Bilirubin (0.1-1.2) mg/dL AST (5-40) units/L ALT (7-56) units/L Alkaline Phosphatase (35-129) units/L Total Creatine Kinase (30-135) units/L CK-MB (CK-2) (0.0-4.0) ng/mL CK-MB (CK-2) Rel Index (0-4) Troponin T (0.00-0.029) ng/mL Total Protein (6.3-8.2) g/dL Albumin (3.9-5) g/dL Albumin/Globulin Ratio % - EKG Data -: EKG Interpreted by Nv EKG shows normal: sinus rhythm, ST-T waves (no stemi) Rate: bradycardia (67) - Radiology Data Radiology results: report reviewed CT head/brain wo con INDICATION / CLINICAL INFORMATION: 61 years Female; neuro deficits <6hrs or sx present upon awakening CODE STROKE LNW 3DAYS AGO, LEFT SIDE WEAKNESS. [id number]. TECHNIQUE: Routine CT head without contrast. All CT sc ans at this location are performed using CT dose reduction for ALARA by means of automated exposure control. COMPARISON: None. FINDINGS: BRAIN / INTRACRANIAL CONTENTS: Small lacunar infarct is seen in the anterior thalamic region on the [id number] without diffusion imaging by MRI. Otherwise, no acute hemorrhage, mass effect, midline shift, hydrocephalus, or acute, large territorial infarct. No signs of significant atrophy or chronic infarct. There are [id number] areas of decreased attenuation in the white matter of the cerebral hemispheres. These are nonspecific findings and may be related to microangiopathy (hypertension, diabetes, atherosclerosis), given the patient's age. CRANIOCERVICAL JUNCTION: No significant abnormality. ORBITS: No significant abnormality of visualized orbits. SINUSES / MASTOIDS: Visualized paranasal sinuses and mastoid air cells are essentially clear. ADDITIONAL FINDINGS: None. IMPRESSION: 1. No focal mass, hemorrhage, hydrocephalus, or acute, large territorial infarct. Follow-up with diffusion imaging by MRI, as clinically warranted. CTA NECK INDICATION / CLINICAL INFORMATION: 61 years Female; left sided weakness CODE STOKE, LNW 3DAYS AGO, LEFT SIDE WEAKNESS, [id number], 100ML OF OMNIPAQUE 350 GIVEN. TECHNIQUE: Thin cut axial images obtained through the head during IV bolus contrast administration. Sagittal, coronal, and 3 plane MIP reconstructions performed by the technologist. NASCET type criteria used evaluate stenoses. All CT scans at this location are performed using CT dose reduction for ALARA by means of automated exposure control. COMPARISON: None available. FINDINGS: ARCH: Normal aortic arch branching suggested. CAROTID ARTERIES: The visualized common and internal carotid arteries are widely patent. VERTEBRAL ARTERIES: Codominant vertebral system seen. No significant stenosis appreciated. ADDITIONAL FINDINGS: Remainder of the surrounding soft tissues are grossly normal. IMPRESSION: No significant stenosis appreciated on this CTA of the neck. CTA HEAD WITH CONTRAST HISTORY: Left-sided weakness, code stroke COMPARISON: None. TECHNIQUE: Routine non-contrast CT Head, CTA of the head and post-contrast CT Head are performed. 3-D/MIP reformats postprocessed. All CT scans at this location are performed using CT dose reduction for ALARA by means of automated exposure control CONTRAST: 100 ml of Omnipaque 350 FINDINGS: CTA Head: Intracranial vertebral arteries: No significant abnormality. Basilar artery: No significant abnormality. Posterior cerebral arteries: No significant abnormality. Intracranial internal carotid arteries: Mild atherosclerotic disease is noted in the supraclinoid ICAs bilaterally but no hemodynamically significant stenosis. Anterior cerebral arteries: No significant abnormality. Middle cerebral arteries: No significant abnormality. Dural venous sinuses:Not optimally opacified. No significant abnormality. Additional findings: None. IMPRESSION: 1. Mild atherosclerotic disease as described. No large vessel occlusion or stenosis. - Medical Decision Making 51-year-old female with multiple stroke risk factors presents to the hospital with left sided weakness, numbness, and pain. Differential includes acute stroke versus cervical disc herniation given previous history of cervical disc disease and chronic pain. Patient does not meet criteria for acute stroke intervention at this time and will require admission to the hospital for MRI of the brain and cervical spine. Patient treated with morphine, Zofran, aspirin. - Thrombolytic Inclusion/Exclusion Thrombolytic Exclusion Criteria: Symptom Onset > 3 Hours Critical Care Time: No Critical care attestation.: If time is entered above; I have spent that time in minutes in the direct care of this critically ill patient, excluding procedure time. ED Disposition Clinical Impression: Left-sided weakness, Left arm pain, Left leg pain, History of herniated intervertebral disc, Chronic pain Disposition: ADMITTED INPATIENT Is pt being admited?: Yes Condition: Stable Time of Disposition: 13:39
[2022-01-30 12:09] LABS: Basophils # (Auto) 0.1 K/mm3 (0.0-0.1); Basophils % (Auto) 0.8 % (0.0-1.8); Eosinophils # (Auto) 0.3 K/mm3 (0.0-0.4); Hematocrit 36.2 % (30.3-42.9); Hemoglobin 11.9 gm/dl (10.1-14.3); Lymphocytes # (Auto) 2.7 K/mm3 (1.2-5.4); Lymphocytes % (Auto) 34.6 % (13.4-35.0); Mean Corpuscular HGB Conc 33 % (30-34); Mean Corpuscular Volume 88 fl (79-97); Monocytes # (Auto) 0.6 K/mm3 (0.0-0.8); Monocytes % (Auto) 7.8 % (0.0-7.3); Platelet Count 204 K/mm3 (140-440); Red Cell Distribution Width 14.1 % (13.2-15.2)
[2022-01-30 12:17] LABS: INR 0.94 (0.87-1.13)
[2022-01-30 12:18] LABS: Partial Thromboplastin Time 30.2 Sec. (24.2-36.6)
[2022-01-30] MEDS ORDERED: ONDANSETRON 4 MG/2 ML INJ IV ONE (12:18)
[2022-01-30] MEDS ORDERED: MORPHINE 4 MG/1 ML INJ IV ONE (12:18)
--- NOTE | 2022-01-30 12:25 | Emergency Department Report ---
Blank Doc - Documentation Documentation: [facility] Consult Note # Demographics Consult Type: Acute Stroke Level 2 (4.5-24 hrs) Patient Location: Emergency Room First Name: Darren Last Name: Kolby Date of : 1960 Age: 61 Gender: Female Facility: [facility] Time of Initial Page (Eastern Time): 01/30/2022, 11:03 Time of Return Call (Eastern Time): 01/30/2022, 11:03 # HPI History: 61yo with left sided weakness since 1699 yesterday # Scores Level of Consciousness 1a: [0] = Alert; keenly responsive LOC Questions 1b: [0] = Answers both questions correctly LOC Commands 1c: [0] = Performs both tasks correctly Best Gaze 2: [0] = Normal Visual 3: [0] = No visual loss Facial Palsy 4: [0] = Normal symmetrical movements Motor Arm Left 5a: [3] = No effort against gravity Motor Arm Right 5b: [0] = No drift Motor Leg Left 6a: [0] = No drift Motor Leg Right 6b: [0] = No drift Limb Ataxia 7: [0] = Absent Sensory 8: [0] = Normal Best Language 9: [0] = No aphasia Dysarthria 10: [0] = Normal Extinction and Inattention 11: [0] = No abnormality NIHSS Total: 3 # Exam Motor: pain limited exam in the let arm # [id number] Past Medical History: spine disease # Assessment Impression: pain cusing limited strength in the arm # Plan Thrombolytic/Intervention: NOT IV Thrombolysis or IA Intervention candidate Thrombolytic Exclusion: > 4.5 hours Intraarterial Exclusion: clinically consistent with small vessel disease Imaging: (urgency: routine): MRI Brain without contrast MRI C spine Therapy/Evaluation: PT/OT evaluation Other: I have discussed my recommendations with the referring provider Additional Recommendations: Further work-up based on MRI results # Logistics Telemedicine: Interactive 2 way audio and visual telecommunication technology was utilized during this visit
[2022-01-30 12:28] LABS: Creatine Kinase MB 1.1 ng/mL (0.0-4.0)
[2022-01-30 12:30] LABS: Alanine Aminotransferase 12 units/L (7-56); Albumin 3.9 g/dL (3.9-5); BUN/Creatinine Ratio 23; Blood Urea Nitrogen 18 mg/dL (7-17); Calcium 9.2 mg/dL (8.4-10.2); Hemolysis Index 4
--- NOTE | 2022-01-30 12:34 | Cat Scan Report ---
CTA NECK INDICATION / CLINICAL INFORMATION: 61 years Female; left sided weakness CODE V[place]AS[place]KS 3DAYS AGO, LEFT SIDE WEAKNESS, [id number], 100ML OF OMNIPAQUE 350 GIVEN. TECHNIQUE: Thin cut axial images obtained through the head during IV bolus contrast administration. S agittal, coronal, and 3 plane MIP reconstructions performed by the technologist. NASCET type criteria used evaluate stenoses. All CT scans at this location are performed using CT dose reduction for ALAR A by means of automated exposure control. COMPARISON: None available. FINDINGS: ARCH: Normal aortic arch branching suggested. CAROTID ARTERIES: The visualized common and internal carotid arteries are widely patent. VERTEBRAL ARTERIES: Codominant vertebral system seen. No significant stenosis appreciated. ADDITIONAL FINDINGS: Remainder of the surrounding soft tissues are grossly normal. IMPRESSION: No significant stenosis appreciated on this CTA of the neck. CTA HEAD WITH CONTRAST HISTORY: Left-sided weakness, code stroke COMPARISON: None. TECHNIQUE: Routine non-contrast CT Head, CTA of the head and post-contrast CT Head are performed. 3-D /MIP reformats postprocessed. All CT scans at this location are performed using CT dose reduction for ALARA by means of automated e xposure control CONTRAST: 100 ml of Omnipaque 350 FINDINGS: CTA Head: Intracranial vertebral arteries: No significant abnormality. Basilar artery: No significant abnormality. Posterior cerebral arteries: No significant abnormality. Intracranial internal carotid arteries: Mild atherosclerotic disease is noted in the supraclinoid ICA s bilaterally but no hemodynamically significant stenosis. Anterior cerebral arteries: No significant abnormality. Middle cerebral arteries: No significant abnormality. Dural venous sinuses:Not optimally opacified. No significant abnormality. Additional findings: None. IMPRESSION: 1. Mild atherosclerotic disease as described. No large vessel occlusion or stenosis. Signer Name: Mando Méndez Jr, MD Signed: 01/30/2022 12:30 PM Workstation Name: [id number]
[2022-01-30] MEDS ORDERED: ASPIRIN 325 MG TAB PO ONE (13:38)
[2022-01-30] MEDS ORDERED: ONDANSETRON 4 MG/2 ML INJ IV PRN (13:39)
[2022-01-30] MEDS ORDERED: ACETAMINOPHEN 325 MG TAB PO PRN (13:39)
[2022-01-30] MEDS ORDERED: MORPHINE 2 MG/1 ML INJ IV PRN (13:40)
--- NOTE | 2022-01-31 06:47 | History and Physical Report ---
History of Present Illness Date of examination: 01/30/22 Date of admission: 01/30/22 13:39 Chief complaint: Left-sided weakness for 48 hours History of present illness: 48-year-old female with past medical history of hypertension, insulin-dependent diabetes, coronary artery disease, peripheral neuropathy, chronic neck and back pain" history comes in for weakness of the left side for 48 hours which is intermittent in nature. Patient she was says she was very weak in the morning on the left side and could not use her left upper extremity and left lower extremity. During my examination patient was able to move all 4 extremities and has good power in all 4 EXTR. Range of motion was good and power was like 5 b/5 power. No dysarthria. No diplopia. Code stroke was initiated by ED department. CTA head and CT angiograms were done. Patient has a history of chronic neck and back pain secondary to herniated disc and takes oxycodone on a regular basis. Patient follows with pain management. No fever or chills. - Past Medical History --Hypertension: Yes --Diabetes: Yes --Arthritis: Yes --Additional medical history: Thoracic aortic aneurysm - Surgical History --Additional Surgical History: HYSTERECTOMY - Social History --Smoking Status: Never Smoker Review of Systems ROS: Constitutional no weight loss or weight gain no fever or chills HEENT no sore throat no post nasal drip no diplopia Neck no neck stiffness no lymph gland enlargement Chest and lungs no shortness of breath cough or wheezing CVS no chest pain no diaphoresis no palpitations GI no nausea no vomiting no diarrhea Genitourinary system no dysuria no flank pain Musculoskeletal system no muscle pains no joint pains MATCH UP PERSON complained of left-sided weakness which is resolved Skin no rash no itching Psychiatric no depression no homicidal or suicidal tendencies Hematologic no lymphedema or bruising Endocrine no polydipsia no polyuria no cold intolerance no heat intolerance Medications and Allergies Allergies Allergy/AdvReac Type Severity Reaction Status Date / Time tramadol Allergy Tremors Verified 01/30/22 10:53 Home Medications Medication Instructions Recorded Confirmed Last Taken Type AtorvaSTATin [Lipitor] 40 mg PO QPM 11/13/21 11/17/21 5 Days Ago History ~11/12/21 Insulin Glargine [Lantus VIAL] 35 units SQ QAM 11/13/21 11/17/21 11/09/21 History Insulin Glargine [Lantus VIAL] 35 units SQ QPM 11/13/21 11/17/21 5 Days Ago History ~11/12/21 Isosorbide Mononitrate [Isosorbide 60 mg PO DAILY 11/13/21 11/17/21 5 Days Ago History Mononitrate ER] ~11/12/21 Meloxicam [Mobic] 15 mg PO Q3D 11/13/21 11/17/21 5 Days Ago History ~11/12/21 Nitroglycerin [Nitrostat] 0.4 mg PO PRN 11/13/21 11/17/21 5 Days Ago History ~11/12/21 Pregabalin [Lyrica] 100 mg PO BID 11/13/21 11/17/21 5 Days Ago History ~11/12/21 Amitriptyline [Elavil] 50 mg PO HS 11/17/21 11/17/21 5 Days Ago History ~11/12/21 Cholecalciferol Vit D3 [Vitamin D3 1,000 unit PO QDAY 11/17/21 11/17/21 5 Days Ago History 1,000 UNIT TAB] ~11/12/21 Cyanocobalamin [Vitamin B-12] 1,000 mcg IM QMONTH 11/17/21 11/17/21 5 Days Ago History ~11/12/21 Diclofenac Sodium [Voltaren 2 gm TP QDAY PRN 11/17/21 11/17/21 5 Days Ago History Arthritis Pain] ~11/12/21 Lisinopril/Hydrochlorothiazide 1 tab PO QDAY 11/17/21 11/17/21 5 Days Ago History [Zestoretic 20-25 mg] ~11/12/21 Lispro Insulin [HumaLOG] 30 unit SQ TIDWM 11/17/21 11/17/21 5 Days Ago History ~11/12/21 Loratadine [Claritin] 10 mg PO QDAY 11/17/21 11/17/21 5 Days Ago History ~11/12/21 Oxycodone HCl/Acetaminophen 1 each PO TID PRN 11/17/21 11/17/21 5 Days Ago History [Oxycodone-Acetaminophen 10-325] ~11/12/21 Sertraline [Zoloft] 100 mg PO QDAY 11/17/21 11/17/21 5 Days Ago History ~11/12/21 methOCARBAMOL [Robaxin TAB] 1,000 mg PO TID PRN 11/17/21 11/17/21 5 Days Ago History ~11/12/21 NIFEdipine XL [Procardia Xl] 30 mg PO Q12HR #60 tablet 11/19/21 Unknown Rx cloNIDine [Catapres] 0.1 mg PO BID #60 tablet 11/19/21 Unknown Rx hydrALAZINE [Apresoline TAB] 25 mg PO Q8HR #90 tab 11/19/21 Unknown Rx levoFLOXacin [Levaquin] 750 mg PO QDAY #7 tablet 11/19/21 Unknown Rx Active Meds: Active Medications Acetaminophen (Acetaminophen 325 Mg Tab) 650 mg PO Q4H PRN PRN Reason: Pain MILD(1-3)/Fever >100.5/MILLER Morphine Sulfate (Morphine 2 Mg/1 Ml Inj) 2 mg IV Q4H PRN PRN Reason: Pain, Moderate (4-6) Ondansetron HCl (Ondansetron 4 Mg/2 Ml Inj) 4 mg IV Q8H PRN PRN Reason: Nausea And Vomiting Sodium Chloride (Sodium Chloride 0.9% 10 Ml Flush Syringe) 10 ml IV BID ZOHAIB Sodium Chloride (Sodium Chloride 0.9% 10 Ml Flush Syringe) 10 ml IV PRN PRN PRN Reason: LINE FLUSH Exam - Constitutional Vitals: Temp Pulse Resp BP Pulse Ox 98.0 F 64 16 174/102 98 01/31/22 04:59 01/31/22 04:59 01/31/22 04:59 01/31/22 04:59 01/31/22 04:59 General appearance: Present: no acute distress, well-nourished - EENT Eyes: Present: PERRL ENT: hearing intact, clear oral mucosa - Neck Neck: Present: supple, normal ROM - Respiratory Respiratory effort: normal Respiratory: bilateral: CTA - Cardiovascular Heart rate: 78 Rhythm: regular Heart Sounds: Present: S1 & S2. Absent: rub, click - Extremities Extremities: no ischemia, pulses intact, pulses symmetrical, No edema Peripheral Pulses: within normal limits - Abdominal General gastrointestinal: Present: soft, non-tender, non-distended, normal bowel sounds Female genitourinary: Present: normal - Integumentary Integumentary: Present: clear, warm, dry - Musculoskeletal Musculoskeletal: gait normal, strength equal bilaterally - Psychiatric Psychiatric: appropriate mood/affect, intact judgment & insight - Neurologic Neurologic: CNII-XII intact, moves all extremities - Allied Health Allied health notes reviewed: nursing, case management HEART Score - HEART Score Troponin: Troponin T < 0.010 ng/mL (0.00-0.029) 01/30/22 11:45 Results - Labs CBC & Chem 7: 01/30/22 11:45 01/30/22 11:45 Labs: Laboratory Last Values WBC 7.8 K/mm3 (4.5-11.0) 01/30/22 11:45 RBC 4.10 M/mm3 (3.65-5.03) 01/30/22 11:45 Hgb 11.9 gm/dl (10.1-14.3) 01/30/22 11:45 Hct 36.2 % (30.3-42.9) 01/30/22 11:45 MCV 88 fl (79-97) 01/30/22 11:45 MCH 29 pg (28-32) 01/30/22 11:45 MCHC 33 % (30-34) 01/30/22 11:45 RDW 14.1 % (13.2-15.2) 01/30/22 11:45 Plt Count 204 K/mm3 (140-440) 01/30/22 11:45 Lymph % (Auto) 34.6 % (13.4-35.0) 01/30/22 11:45 [place] % (Auto) 7.8 % (0.0-7.3) H 01/30/22 11:45 Eos % (Auto) 4.0 % (0.0-4.3) 01/30/22 11:45 Baso % (Auto) 0.8 % (0.0-1.8) 01/30/22 11:45 Lymph # (Auto) 2.7 K/mm3 (1.2-5.4) 01/30/22 11:45 [place] # (Auto) 0.6 K/mm3 (0.0-0.8) 01/30/22 11:45 Eos # (Auto) 0.3 K/mm3 (0.0-0.4) 01/30/22 11:45 Baso # (Auto) 0.1 K/mm3 (0.0-0.1) 01/30/22 11:45 Seg Neutrophils % 52.8 % (40.0-70.0) 01/30/22 11:45 Seg Neutrophils # 4.1 K/mm3 (1.8-7.7) 01/30/22 11:45 PT 13.9 Sec. (12.2-14.9) 01/30/22 11:45 INR 0.94 (0.87-1.13) 01/30/22 11:45 APTT 30.2 Sec. (24.2-36.6) 01/30/22 11:45 Thrombin Time 19.0 Sec. (15.1-19.6) 01/30/22 11:45 Sodium 139 mmol/L (137-145) 01/30/22 11:45 Potassium 4.7 mmol/L (3.6-5.0) 01/30/22 11:45 Chloride 104.8 mmol/L (98-107) 01/30/22 11:45 Carbon Dioxide 25 mmol/L (22-30) 01/30/22 11:45 Anion Gap 14 mmol/L 01/30/22 11:45 BUN 18 mg/dL (7-17) H 01/30/22 11:45 Creatinine 0.8 mg/dL (0.6-1.2) 01/30/22 11:45 Estimated GFR > 60 ml/min 01/30/22 11:45 BUN/Creatinine Ratio 23 % 01/30/22 11:45 Glucose 191 mg/dL (65-100) H 01/30/22 11:45 POC Glucose 197 mg/dL (70-105) H 01/30/22 11:53 Calcium 9.2 mg/dL (8.4-10.2) 01/30/22 11:45 Total Bilirubin 0.40 mg/dL (0.1-1.2) 01/30/22 11:45 AST 14 units/L (5-40) 01/30/22 11:45 ALT 12 units/L (7-56) 01/30/22 11:45 Alkaline Phosphatase 86 units/L (35-129) 01/30/22 11:45 Total Creatine Kinase 76 units/L (30-135) 01/30/22 11:45 CK-MB (CK-2) 1.1 ng/mL (0.0-4.0) 01/30/22 11:45 CK-MB (CK-2) Rel Index 1.4 (0-4) 01/30/22 11:45 Troponin T < 0.010 ng/mL (0.00-0.029) 01/30/22 11:45 Total Protein 6.7 g/dL (6.3-8.2) 01/30/22 11:45 Albumin 3.9 g/dL (3.9-5) 01/30/22 11:45 Albumin/Globulin Ratio 1.4 % 01/30/22 11:45 Short CBC 01/30/22 Range/Units 11:45 WBC 7.8 (4.5-11.0) K/mm3 Hgb 11.9 (10.1-14.3) gm/dl Hct 36.2 (30.3-42.9) % Plt Count 204 (140-440) K/mm3 BMP 01/30/22 11:45 Sodium 139 Potassium 4.7 Chloride 104.8 Carbon Dioxide 25 BUN 18 H Creatinine 0.8 Glucose 191 H Calcium 9.2 Cardiac Enzymes 01/30/22 Range/Units 11:45 Total Creatine Kinase 76 (30-135) units/L CK-MB (CK-2) 1.1 (0.0-4.0) ng/mL Troponin T < 0.010 (0.00-0.029) ng/mL Liver Function 01/30/22 Range/Units 11:45 Total Bilirubin 0.40 (0.1-1.2) mg/dL AST 14 (5-40) units/L ALT 12 (7-56) units/L Alkaline Phosphatase 86 (35-129) units/L Albumin 3.9 (3.9-5) g/dL - Imaging and Cardiology EKG: report reviewed (Sinus rhythm no acute ST-T wave changes) Imaging and Cardiology: CT angiogram of the head Mild atherosclerotic disease as described Normal vessel occlusion or stenosis Neck CTA mild atherosclerotic disease Head CT No hemorrhage Farley/IV: Voiding Method Toilet Assessment and Plan Advance Directives: Yes (Full code) VTE prophylaxis?: Chemical Plan of care discussed with patient/family: Yes - Patient Problems (1) TIA (transient ischemic attack) Current Visit: Yes Status: Acute Plan to address problem: Resolved MRI if possible No focal deficits during my exam Patient may be discharged tomorrow if patient able to walk and with no focal deficits MRIs are not done on the weekend MRI can be done as an outpatient Head and neck CTA are negative Echocardiogram (2) Hypertension Current Visit: No Status: Chronic Qualifiers: Hypertension type: primary hypertension Qualified Code(s): I10 - Essential (primary) hypertension Plan to address problem: Continue antihypertensives (3) IDDM (insulin dependent diabetes mellitus) Current Visit: Yes Status: Chronic Plan to address problem: Continue home insulin and coverage (4) Coronary artery disease Current Visit: Yes Status: Chronic Qualifiers: Coronary Disease-Associated Artery/Lesion type: [place] artery Three Affiliated vs. transplanted heart: [place] heart Plan to address problem: Continue aspirin and isosorbide mononitrate (5) DVT prophylaxis Current Visit: No Status: Acute (6) Advance care planning Current Visit: Yes Status: Acute Plan to address problem: Disease education conducted, care plan discussed, disease diagnosis discussed, prognosis discussed. Patient acknowledges understanding with care plan. +30 minutes.
[2022-01-31] MEDS ORDERED: NON-FORMULARY EACH (Oxycodone Hcl/Acetaminophen [Oxycodone-Acetaminophen 10-325] 1 EACH Ta PO PRN (06:55)
[2022-01-31] MEDS: INSULIN LISPRO 100 UNIT/ML SUB-Q SCH ×2 (08:25→12:25)
[2022-01-31 08:26] LABS: Hematocrit 40.5 % (30.3-42.9); Hemoglobin 13.1 gm/dl (10.1-14.3); Mean Corpuscular HGB Conc 32 % (30-34); Mean Corpuscular Volume 88 fl (79-97); Platelet Count 219 K/mm3 (140-440); Red Blood Count 4.59 M/mm3 (3.65-5.03); Red Cell Distribution Width 13.9 % (13.2-15.2)
[2022-01-31 08:35] LABS: Blood Urea Nitrogen 13 mg/dL (7-17); Calcium 9.7 mg/dL (8.4-10.2); Chol/HDL Ratio 3.62 %; HDL Cholesterol 48 mg/dL (40-59); Hemolysis Index 16; LDL Cholesterol,Direct 112 mg/dL (50-130)
[2022-01-31 08:38] LABS: BUN/Creatinine Ratio 19
[2022-01-31] MEDS ORDERED: INSULIN GLARGINE 100 UNITS/ML SUB-Q SCH ×2 (10:00→18:00)
[2022-01-31] MEDS ORDERED: oxyCODONE /ACETAMINOPHEN 5-325MG TAB PO PRN (10:00)
[2022-01-31] MEDS ORDERED: NON-FORMULARY EACH (Lisinopril/Hydrochlorothiazide [Zestoretic 20-25 Mg] 1 EACH Tablet) PO SCH (10:00)
[2022-01-31] MEDS ORDERED: PREGABALIN 50 MG CAP PO SCH (10:00)
[2022-01-31] MEDS ORDERED: NIFEdipine XL 30 MG TAB PO SCH (10:00)
[2022-01-31] MEDS ORDERED: hydroCHLOROthiazide 25 MG TAB PO SCH (10:00)
[2022-01-31] MEDS ORDERED: LISINOPRIL 20 MG TAB PO SCH (10:00)
[2022-01-31] MEDS ORDERED: SERTRALINE 100 MG TAB PO SCH (10:00)
[2022-01-31] MEDS ORDERED: NON-FORMULARY EACH (Pregabalin [Lyrica] 100 MG Capsule) PO SCH (10:00)
[2022-01-31] MEDS ORDERED: cloNIDine 0.1 MG TAB PO SCH (10:00)
[2022-01-31] MEDS ORDERED: CHOLECALCIFEROL (VIT D3) 1000 UNIT (25 mcg) TAB PO SCH (10:00)
--- NOTE | 2022-01-31 13:11 | Discharge Summary ---
Providers - Providers Date of Admission: 01/30/22 13:39 Date of discharge: 01/31/22 Attending physician: CIRILO VIGIL MD 01/31/22 06:55 Consult to Physician [CONS] Routine Comment: Consulting Provider: YRN MOSS Physician Instructions: Reason For Exam: TIA Primary care physician: DOCUMENTATION MANAGER Hospitalization Reason for admission: Transient ischemic attack Condition: Stable Pertinent studies: Reviewed. Procedures: None. Hospital course: Patient is a 48-year-old female past medical history of hypertension, insulin- dependent type 2 diabetes mellitus, coronary artery disease, peripheral neuropathy, chronic neck and back pain, osteoarthritis, and morbid obesity who presented to the ED with complaints of left-sided weakness over the course of 48 hours that was intermittent in nature. Patient described being very weak in the morning and noticing it on her left side. She endorses not being able to utilize her left upper and lower extremity during that period of time. On presentation to the ED, the patient was found to be hemodynamically stable and able to freely move all extremities. The patient was not experiencing any dysarthria, diplopia, dysphagia, or encephalopathy. Patient underwent CT head noncontrast, CT angio head, and CT angio neck that were found to be unremarkable. Patient was observed overnight to determine if her symptoms would further improve. Patient was reexamined the next morning, she was found to be back to her baseline. The patient will follow-up with her primary care provider within the next 7 to 14 days. Patient is medically clear for discharge. Disposition: 01 HOME / SELF CARE / HOMELESS Final Discharge Diagnosis (Prints w/discharge instructions): Transient ischemic attack, hypertension, insulin-dependent type 2 diabetes mellitus, coronary artery disease, morbid obesity Time spent for discharge: 45 min Core Measure Documentation - Palliative Care Palliative Care/ Comfort Measures: Not Applicable - Core Measures Any of the following diagnoses?: none Exam - Constitutional Vitals: Temp Pulse Resp BP Pulse Ox 98.1 F 69 18 169/81 96 01/31/22 08:41 01/31/22 08:41 01/31/22 11:36 01/31/22 09:11 01/31/22 11:36 General appearance: Present: no acute distress, well-nourished, obese - EENT Eyes: Present: PERRL, EOM intact ENT: hearing intact, clear oral mucosa, dentition normal - Neck Neck: Present: supple, normal ROM - Respiratory Respiratory effort: normal Respiratory: bilateral: CTA - Cardiovascular Rhythm: regular Heart Sounds: Present: S1 & S2 - Extremities Extremities: no ischemia, pulses intact, pulses symmetrical, No edema, normal temperature, normal color, Full ROM Peripheral Pulses: within normal limits - Abdominal General gastrointestinal: Present: soft, non-tender, non-distended, normal bowel sounds Female genitourinary: Present: deferred - Rectal Rectal Exam: deferred - Integumentary Integumentary: Present: clear, warm, dry - Musculoskeletal Musculoskeletal: strength equal bilaterally - Psychiatric Psychiatric: appropriate mood/affect, intact judgment & insight, memory intact, cooperative - Neurologic Neurologic: CNII-XII intact, moves all extremities - Allied Health Allied health notes reviewed: nursing Plan Activity: no restrictions Diet: low salt, diabetic Additional Instructions: Patient is a 48-year-old female past medical history of hypertension, insulin-dependent type 2 diabetes mellitus, coronary artery disease, peripheral neuropathy, chronic neck and back pain, osteoarthritis, and morbid obesity who presented to the ED with complaints of left-sided weakness over the course of 48 hours that was intermittent in nature. Patient described being very weak in the morning and noticing it on her left side. She endorses not being able to utilize her left upper and lower extremity during that period of time. On presentation to the ED, the patient was found to be hemodynamically stable and able to freely move all extremities. The patient was not experiencing any dysarthria, diplopia, dysphagia, or encephalopathy. Patient underwent CT head noncontrast, CT angio head, and CT angio neck that were found to be unremarkable. Patient was observed overnight to determine if her symptoms would further improve. Patient was reexamined the next morning, she was found to be back to her baseline. The patient will follow-up with her primary care provider within the next 7 to 14 days. Patient is medically clear for discharge. Care Plan Goals: Patient is medically clear for discharge. Assessment: Patient is a 48-year-old female past medical history of hypertension, insulin- dependent type 2 diabetes mellitus, coronary artery disease, peripheral neuropathy, chronic neck and back pain, osteoarthritis, and morbid obesity who presented to the ED with complaints of left-sided weakness over the course of 48 hours that was intermittent in nature. Patient described being very weak in the morning and noticing it on her left side. She endorses not being able to utilize her left upper and lower extremity during that period of time. On presentation to the ED, the patient was found to be hemodynamically stable and able to freely move all extremities. The patient was not experiencing any dysarthria, diplopia, dysphagia, or encephalopathy. Patient underwent CT head noncontrast, CT angio head, and CT angio neck that were found to be unremarkable. Patient was observed overnight to determine if her symptoms would further improve. Patient was reexamined the next morning, she was found to be back to her baseline. The patient will follow-up with her primary care provider within the next 7 to 14 days. Patient is medically clear for discharge. Follow up with: PRIMARY MD ASIA [Primary Care Provider] - 7 Days Prescriptions: hydrALAZINE [Apresoline TAB] 50 mg PO Q8HR #180 tab
[2022-01-31 13:50] VITALS: BP 123/71
[2022-01-31] MEDS ORDERED: hydrALAZINE 25 MG TAB PO SCH (14:00)
[2022-01-31] MEDS ORDERED: AMITRIPTYLINE 25 MG TAB PO SCH (22:00)
--- NOTE | 2022-02-01 15:11 | Electrocardiograph Report ---
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
--- NOTE | 2022-02-02 08:03 | Cat Scan Report ---
CT head/brain wo con INDICATION / CLINICAL INFORMATION: 61 years Female; neuro deficits <6hrs or sx present upon awakening CODE STROKE LNW 3DAYS AGO, LEFT SIDE WEAKNESS. [id number]. TECHNIQUE: Routine CT head without contrast. All CT scans at this location are performed using CT dos e reduction for ALARA by means of automated exposure control. COMPARISON: None. FINDINGS: BRAIN / INTRACRANIAL CONTENTS: Small lacunar infarct is seen in the anterior thalamic region on the l [id number] without diffusion imaging by MRI. Otherwise, no acute hemorrhage, mass effect, midline shift, hydrocephalus, or acute, large territori al infarct. No signs of significant atrophy or chronic infarct. There are [id number] areas of decreased attenuation in the white matter of the cerebral hemisph eres. These are nonspecific findings and may be related to microangiopathy (hypertension, diabetes, a therosclerosis), given the patient's age. CRANIOCERVICAL JUNCTION: No significant abnormality. ORBITS: No significant abnormality of visualized orbits. SINUSES / MASTOIDS: Visualized paranasal sinuses and mastoid air cells are essentially clear. ADDITIONAL FINDINGS: None. IMPRESSION: 1. No focal mass, hemorrhage, hydrocephalus, or acute, large territorial infarct. Follow-up with diff usion imaging by MRI, as clinically warranted. CODE STROKE: Exam Completed (STAFF READINESS OFFICER/CDT): 01/30/2022 10:26 AM Exam Reviewed (STAFF READINESS OFFICER/CDT): 10:28 AM Time of Communication (STAFF READINESS OFFICER/CDT): 10:29 AM Licensed Practitioner Receiving Report: Dr. Kendall, Signer Name: Aj Ivey MD, III Signed: 01/30/2022 11:32 AM Workstation Name: [id number]
== END 2022-01-31 17:12 | disposition home or self-care (01) | DRG 69 ==
LOC: ED 10:15 → 4A 13:39
PROVIDERS: ADMIT Internal Medicine; ATTEND Student in an Organized Health Care Education/Training Program
DX: G45.9 Transient cerebral ischemic attack, unspecified (principal); G89.29 Other chronic pain; M79.602 Pain in left arm; M79.605 Pain in left leg; R53.1 Weakness; I10 Essential (primary) hypertension; E11.9 Type 2 diabetes mellitus without complications; M19.90 Unspecified osteoarthritis, unspecified site; I25.10 Atherosclerotic heart disease of native coronary artery without angina pectoris; E66.01 Morbid (severe) obesity due to excess calories; Z90.710 Acquired absence of both cervix and uterus; Z68.43 Body mass index [BMI] 50.0-59.9, adult; Z79.4 Long term (current) use of insulin
CPT/HCPCS: 36415; 70450; 70496; 70498; 80048; 80053; 80061; 82550; 82553; 82962; 83036; 84484; 85025; 85027; 85610; 85670; 85730; 93005; G0378; Q9967; J1815; J2270; J2405